=== PATIENT | female | born 1970 | race Caucasian/White ===

== ENCOUNTER → 2017-07-27 | Outpatient (CLI) | payer MEDICARE ==
--- NOTE | 2017-07-27 10:00 | US ---
EXAMINATION TYPE: US abdomen complete DATE OF EXAM: 07/27/2017 COMPARISON: NONE CLINICAL HISTORY: R10.11 Rt Upper quadrant pain. Pt states RUQ pain x 29 years EXAM MEASUREMENTS: Liver Length: 14.9 cm Gallbladder Wall: 0.2 cm CBD: 0.4 cm Spleen: 9.7 cm Right Kidney: 11.0 x 4.6 x 4.8 cm Left Kidney: 11.3 x 5.7 x 4.4 cm Pancreas: Body wnl, head and tail obscured by overlying bowel gas Liver: Small calcifications especially within left lobe Gallbladder: Mobile debris within with possible shadowing from calculi Evidence for sonographic Ponce's sign: No CBD: wnl Spleen: wnl Right Kidney: wnl, lower pole gassed out Left Kidney: wnl Upper IVC: wnl Abd Aorta: wnl The intrahepatic portion of the IVC and proximal abdominal aorta are within normal limits. Common bile duct is unremarkable. The visualized portions of the pancreas are homogenous. The spleen is un remarkable. Kidneys are symmetric and free of hydronephrosis. No renal lesions are seen. IMPRESSION: 1. Multilevel lumbar gallbladder debris with possible small calculi. 2. Hepatic calcifications.
== END | disposition home or self-care (01) ==
LOC: RADUSWWP 09:29
PROVIDERS: ATTEND Internal Medicine
DX: K82.8 Other specified diseases of gallbladder (principal); K76.89 Other specified diseases of liver
CPT/HCPCS: 76700

== ENCOUNTER → 2017-08-29 | Outpatient (CLI) | payer MEDICARE ==
--- NOTE | 2017-08-29 15:41 | CT ---
EXAMINATION TYPE: CT sinus wo con DATE OF EXAM: 08/29/2017 COMPARISON: NONE HISTORY: Chronic sinusitis per order. Facial pain and sinus congestion per patient. CT DLP: 603 mGycm. Automated Exposure Control for Dose Reduction was Utilized. TECHNIQUE: CT scan of the sinuses is performed without contrast, axial images are obtained, coronal r eformatted images are also reviewed. FINDINGS: The paranasal sinuses including the frontal, ethmoid, sphenoid, and maxillary sinuses bila terally are well-aerated without abnormal opacification. The ostiomeatal complex is patent bilateral ly on the coronal images. Visualized portion of mastoid air cells show no abnormal opacification. The globes are intact bilate rally. IMPRESSION: The sinuses are clear and the ostiomeatal complex is patent bilaterally.
== END | disposition home or self-care (01) ==
LOC: RADCTMAIN 15:18
PROVIDERS: ATTEND Otolaryngology
DX: J32.9 Chronic sinusitis, unspecified (principal)
CPT/HCPCS: 70486

== ENCOUNTER 2017-10-30 12:29 | Day surgery (SDC) | payer MEDICARE ==
[2017-10-25 11:13] VITALS: BMI 29.0
[~2017-10-30 12:29] MED LIST: LACTATED RINGERS 1,000 ML IV SCH; LIDOCAINE 1% 20 ML VIAL (10MG/ML) FOR IV START INTRADERMA PRN
[2017-10-30 12:55] VITALS: TEMP 97.4
[2017-10-30] MEDS ORDERED: PROPOFOL 10 MG/ML 20 ML VIAL IV ONE (14:40)
[2017-10-30 15:09] VITALS: RESP 16
--- NOTE | 2017-10-30 15:12 | P.PCN ---
Date of Procedure: 10/30/17 Procedure(s) Performed: Procedure: Esophagogastroduodenoscopy and biopsy. Preoperative diagnosis: History of dyspepsia of 6 months duration. Postoperative diagnosis: 1. Small sliding hiatal hernia with no obvious esophagitis or complicated reflux disease. 2. Mild antral gastritis and duodenitis. 3. Multiple biopsies obtained from the duodenum, antrum and esophagus. Preparation and sedation; Were provided by anesthesia. Brief clinical history: The patient is a 47-year-old female who is scheduled for this evaluation because of history of nausea and vomiting of around 6 months duration. This has not responded to empirical therapy and she has not felt any better after cholecystectomy which was performed around 1 month ago. This evaluation is to assess for esophagitis, PUD, complicated reflux disease or other pathology. Procedure: With the patient on her left lateral decubitus position and after informed consent and adequate sedation, I passed the Olympus-GIF 160 video upper endoscope through the cricopharyngeus down the esophagus. GE junction was around 38 cm from the incisors and there was a small sliding hiatal hernia. The esophagus did not show any obvious erosions, ulcers, strictures or Hoang 's esophagus. The endoscope was then passed into the stomach which was insufflated with air and inspected in detail including the retroflex view in the cardia. There was mottling and erythema in the antrum and a few erosions but no ulcers or bleeding. Pyloric channel did not show any ulcers. Duodenal bulb, post bulbar area and descending duodenum showed some mottling and erythema. Because of her symptoms, I obtained biopsies from the duodenum, antrum and esophagus then the endoscope was withdrawn. The patient tolerated the procedure well. Plan: The patient was reassured. Will await biopsy results. Further plans can be made based on his course and biopsy results. She will follow-up with you as planned and I will be happy to see in the office if her symptoms persist or recur.
[2017-10-30 15:32] VITALS: BP 112/79; PULSE 61
== END 2017-10-30 16:28 | disposition home or self-care (01) ==
LOC: ORWHC2ENDO 12:29
DX: K29.80 Duodenitis without bleeding (principal); K44.9 Diaphragmatic hernia without obstruction or gangrene; K29.70 Gastritis, unspecified, without bleeding; K21.0 Gastro-esophageal reflux disease with esophagitis; M19.90 Unspecified osteoarthritis, unspecified site; Z85.41 Personal history of malignant neoplasm of cervix uteri; F41.9 Anxiety disorder, unspecified; F32.9 Major depressive disorder, single episode, unspecified; Z79.899 Other long term (current) drug therapy; E07.9 Disorder of thyroid, unspecified
CPT/HCPCS: 43239; J2704; 88305

== ENCOUNTER → 2018-02-06 | Outpatient (CLI) | payer MEDICARE ==
--- NOTE | 2018-02-07 | MR ---
EXAMINATION TYPE: MR angio head wo con DATE OF EXAM: 02/06/2018 COMPARISON: None HISTORY: Headaches, Migraine, Dizziness TECHNIQUE: Time of flight images focusing on the [place] of [place] were performed without contrast. FINDINGS: There is arterial flow in the anterior middle and posterior cerebral arteries. There is art erial flow in the vertebrobasilar artery system. There is no evidence of aneurysm or neovascularity. There is no mass effect. There is no spasm. There is no evidence of stenosis. IMPRESSION: Negative CT angiogram of the brain.
--- NOTE | 2018-02-07 00:08 | MR ---
EXAMINATION TYPE: MR brain wo con DATE OF EXAM: 02/06/2018 COMPARISON: 04/11/2016 HISTORY: Headaches, Migraine, Dizziness Standard multiplanar, multisequence MRI departmental protocol Multiplanar, multisequence images of the brain were acquired. Diffusion weighted imaging was performe d. FINDINGS: Ventricles of normal size. There is no mass effect nor midline shift. There is no sign of i ntracranial hemorrhage. Corpus callosum appears normal. Brainstem appears normal. Sella turcica is no rmal. On the T2 images there are 2 5 mm foci there is irregularly shaped in the anterior right production intern al capsule. This area shows normal signal pattern on FLAIR images. This probably relates to perivascu lar spaces unchanged compared to old exam. There is mild mucosal thickening in the ethmoid sinuses. T here is minimal mucosal thickening floor of the maxillary sinuses. There is 2.6 x 1.4 cm area of flui d density in the left side cisterna magna that could be an arachnoid cyst. IMPRESSION: Negative MR scan of the brain. Mild sinusitis is improved compared to old exam. Possible arachnoid cy st unchanged compared to old exam.
== END ==
LOC: RADMRIMAIN 18:30
PROVIDERS: ATTEND Psychiatry & Neurology Neurology
DX: G43.009 Migraine without aura, not intractable, without status migrainosus (principal); H81.11 Benign paroxysmal vertigo, right ear; R41.3 Other amnesia
CPT/HCPCS: 70544; 70551

== ENCOUNTER 2018-06-28 08:55 | Day surgery (SDC) | payer MEDICARE ==
[2018-06-26 10:54] VITALS: BMI 28.0
[~2018-06-28 08:55] MED LIST changes: -LIDOCAINE 1% 20 ML VIAL (10MG/ML) FOR IV START INTRADERMA PRN
[2018-06-28 09:33] VITALS: RESP 16; TEMP 97.7
[2018-06-28] MEDS ORDERED: LIDOCAINE 1% INJ 10MG/ML (20 ML MDV) ONE (10:49)
[2018-06-28] MEDS ORDERED: PROPOFOL 10 MG/ML 20 ML VIAL IV ONE (10:49)
--- NOTE | 2018-06-28 11:25 | P.PCN ---
Date of Procedure: 06/28/18 Procedure(s) Performed: Procedure: Colonoscopy and biopsy. Preoperative diagnosis: Change in bowel habits. Postoperative diagnosis: 1. Exam of the colon within normal limits. 2. Biopsies obtained from the right colon to rule out microscopic colitis. Preparation: HalfLytely prep. Sedation: Was provided by anesthesia. Brief clinical history: The patient is a 47-year-old female who I have evaluated in the office earlier this month in follow-up regarding diarrhea which has been going on since her gallbladder surgery in August of last year. The patient had a prior colonoscopy around 15 years ago. This evaluation is to assess for neoplasia or other pathology. Procedure: With the patient on her left lateral decubitus position and after informed consent and adequate sedation, the perianal area was inspected and it did not show any fissures or fistulas. There were no masses felt on digital rectal examination. The Olympus CFH 190L video colonoscope was then inserted in the rectum in the usual fashion and advanced to the cecum. The mucosa appeared healthy. No polyps or tumors were seen or any obvious diverticular disease or other pathology. I retroflexed the endoscope in the rectum before the endoscope was withdrawn. I also obtained biopsies from the right colon to rule out microscopic colitis. The patient tolerated the procedure well. Plan: The patient was reassured. Discussed dietary measures. Will await biopsy results and make further plans based on her course and biopsy results. She will follow-up with you as planned and I will keep you updated on her progress.
[2018-06-28 11:50] VITALS: BP 99/66; PULSE 58
== END 2018-06-28 12:06 | disposition home or self-care (01) ==
LOC: ORWHC2ENDO 08:55
DX: R19.7 Diarrhea, unspecified (principal); K21.9 Gastro-esophageal reflux disease without esophagitis; M19.90 Unspecified osteoarthritis, unspecified site; E07.9 Disorder of thyroid, unspecified; F32.9 Major depressive disorder, single episode, unspecified; F41.9 Anxiety disorder, unspecified; Z79.890 Hormone replacement therapy; Z79.899 Other long term (current) drug therapy
CPT/HCPCS: 88305; 45380; J2001; J2704

== ENCOUNTER → 2018-08-16 | Outpatient (CLI) | payer MEDICARE ==
--- NOTE | 2018-08-16 15:17 | CT ---
EXAMINATION TYPE: CT abdomen wo con DATE OF EXAM: 08/16/2018 COMPARISON: None INDICATION: Pain under rib cage DLP: 511 mGycm, Automated exposure control for dose reduction was used. CONTRAST: 0 mL of Isovue 300. Study performed without Oral Contrast TECHNIQUE: Axial images were obtained from above the diaphragm to the pubic rami in the axial plane a t 5 mm thick sections. Reconstructed images are reviewed on the computer in the coronal plane. FINDINGS: Limited CT sections are obtained the lung bases. The lung bases are clear. CT ABDOMEN: Liver: Normal Spleen: Normal. Splenule is at the anterior spleen Pancreas: Normal Adrenal glands: The adrenal glands are normal. Gallbladder: Surgically absent Kidneys: No masses are evident. No hydronephrosis is present. No cysts are present. No renal stone s are evident. Aorta: Vascular calcification is within the aorta. Inferior vena cava: Normal. Loops of bowel within the abdomen and pelvis are normal. There are loops of bowel which are incom pletely distended or lack oral contrast limiting their evaluation. Bones: Osseous structures appear unremarkable. IMPRESSIONS: 1. Unremarkable CT abdomen
== END | disposition home or self-care (01) ==
LOC: RADCTMAIN 12:31
PROVIDERS: ATTEND Internal Medicine
DX: R10.11 Right upper quadrant pain (principal)
CPT/HCPCS: 74150

== ENCOUNTER 2022-12-02 23:06 | Emergency (ER) | payer MEDICARE ==
[2022-12-02 23:12] VITALS: RESP 20; TEMP 99.1
[2022-12-02] MEDS ORDERED: AMOXIC-POT CLAV 875-125MG 1 EACH TAB PO STA (23:36)
[2022-12-02] MEDS ORDERED: HYDROcodone/APAP 5-325MG 1 EACH TAB PO STA (23:36)
[2022-12-02] MEDS ORDERED: KETOROLAC 15 MG/ML 1 ML VIAL IM STA (23:36)
[2022-12-02] MEDS ORDERED: DIPH,PERTUS(ACELL)TETVAC-LF 0.5 ML VIAL IM ONE (23:36)
[2022-12-03] MEDS ORDERED: LIDOCAINE 1% INJ 10MG/ML (20 ML MDV) SQ ONE (00:45)
[2022-12-03] MEDS ORDERED: IBUPROFEN 600 MG STARTER PACK 4 TAB BTL PO STA (01:34)
[2022-12-03] MEDS ORDERED: ACET/COD 300 MG/30 MG STARTER PACK 6 TAB BTL PO STA (01:34)
--- NOTE | 2022-12-03 01:35 | ED ---
Animal Bite HPI - General Chief Complaint: Animal Bite Stated Complaint: Dog Bites Time Seen by Provider: 12/02/22 23:19 Source: patient, RN notes reviewed Mode of arrival: ambulatory Limitations: no limitations - History of Present Illness Initial Comments: This is a 52-year-old female who presents to the emergency department for a dog bite to the left hand. Patient's dogs were fighting and she tried to break them apart, when one of them bit her left hand. Unsure when her last tetanus vaccine was. States that this is very painful. Her dogs are up-to-date on their immunizations. Denies any fevers, chills, sore throat, cough, dyspnea, chest pain, palpitations, abdominal pain, nausea, vomiting, diarrhea, back pain, or headaches. MD Complaint: animal bite - Related Data Home Medications Medication Instructions Recorded Confirmed Aspirin 325 mg PO DAILY 10/25/17 06/28/18 Diclofenac Sodium [Voltaren] 75 mg PO BID PRN 10/25/17 06/28/18 Folic Acid (Dose Unknown) 1 tab PO BID 10/25/17 06/28/18 Gabapentin [Neurontin] 600 mg PO TID 10/25/17 06/28/18 Levothyroxine Sodium [Synthroid] 100 mcg PO DAILY 10/25/17 06/28/18 SUMAtriptan succinate [Imitrex] 50 mg PO DIRECTED PRN 10/25/17 06/28/18 Topiramate [Topamax] 25 mg PO 5XD 10/25/17 06/28/18 Vortioxetine Hydrobromide 20 mg PO QAM 10/25/17 06/28/18 [Trintellix] Cariprazine HCl [Vraylar] 1.5 mg PO QAM 06/26/18 06/28/18 Venlafaxine HCl [Effexor] 75 mg PO QAM 06/26/18 06/28/18 Previous Rx's Medication Instructions Recorded ALPRAZolam [Xanax] 1 mg PO TID PRN #10 tab 01/19/15 Amoxic-Pot Clav 875-125Mg 1 tab PO Q12HR 10 Days #20 tab 12/03/22 [Augmentin 875-125] Allergies Allergy/AdvReac Type Severity Reaction Status Date / Time No Known Allergies Allergy Verified 02/21/19 09:43 Review of Systems ROS Statement: Those systems with pertinent positive or pertinent negative responses have been documented in the HPI. ROS Other: All systems not noted in ROS Statement are negative. Past Medical History Past Medical History: Cancer, GERD/Reflux, Osteoarthritis (OA), Thyroid Disorder Additional Past Medical History / Comment(s): Neuropathy lobo legs and feet, "Arachnoid" 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, hx "medically induced seizures", migraines, gout, cervical cancer, hypotension, hiatal hernia, IBS, History of Any Multi-Drug Resistant Organisms: None Reported Past Surgical History: Cholecystectomy, Hysterectomy Past Anesthesia/Blood Transfusion Reactions: No Reported Reaction Past Psychological History: Anxiety, Bipolar, Depression Past Alcohol Use History: None Reported Past Drug Use History: Marijuana - Past Family History Mother Family Medical History: Cancer General Exam Limitations: no limitations General appearance: alert, in no apparent distress Head exam: Present: atraumatic, normocephalic, normal inspection Respiratory exam: Present: normal lung sounds bilaterally. Absent: respiratory distress, wheezes, rales, rhonchi, stridor Cardiovascular Exam: Present: regular rate, normal rhythm, normal heart sounds. Absent: systolic murmur, diastolic murmur, rubs, gallop, clicks Neurological exam: Present: alert, oriented X3, CN II-XII intact Psychiatric exam: Present: normal affect, normal mood Skin exam: Present: other (1 cm puncture wound to the palm of the left hand and dorsal aspect of the left wrist with visible subcutaneous tissue.) Course Vital Signs 12/02/22 12/03/22 23:08 02:04 Temperature 99.1 F Pulse Rate 103 H 69 Respiratory 20 20 Rate Blood Pressure 118/79 101/50 O2 Sat by Pulse 98 96 Oximetry Procedures - Laceration Laceration #1 Consent Obtained: verbal consent Indication: laceration Site: other (Left hand) Size (cm): 1 Description: linear Depth: simple, single layer Anesthetic Used: lidocaine 1% Anesthesia Technique: local infiltration Amount (mls): 1 Pre-repair: irrigated extensively Type of Sutures: nylon Size of Sutures: 5-0 Number of Sutures: 1 Technique: other (figure of 8) Laceration #2 Consent Obtained: verbal consent Indication: laceration Site: other (left hand) Size (cm): 1 Description: linear Depth: simple, single layer Anesthetic Used: lidocaine 1% Anesthesia Technique: local infiltration Amount (mls): 1 Pre-repair: irrigated extensively Type of Sutures: nylon Size of Sutures: 5-0 Number of Sutures: 1 Technique: other (figure of 8) Medical Decision Making - Medical Decision Making This is a 52-year-old female who presents to the emergency department for a dog bite. Was pt. sent in by a medical professional or institution? @ -No Did you speak to anyone other than the patient for history? @ -No Did you review nursing and triage notes? @ -Yes, and I agree, it is accurate with regards to the patient's symptoms. Were old charts reviewed? @ -No Differential Diagnosis? @ -Not applicable EKG interpreted by me (3pts min.)? @ -Not obtained X-rays interpreted by me (1pt min.)? @ -Not obtained CT interpreted by me (1pt min.)? @ -Not obtained U/S interpreted by me (1pt. min.)? @ -Not obtained What testing was considered but not performed? (CT, X-rays, U/S, labs)? Why? @ -None What meds were considered but not given? Why? @ -None Did you discuss the management of the patient with other professionals? @ -No Did you reconcile home meds? @ -No Was smoking cessation discussed for >3mins.? @ -No Was critical care preformed (if so, how long)? @ -No Were there social determinants of health that impacted care today? How? (Homelessness, low income, unemployed, alcoholism, drug addiction, transportation, low edu. Level, literacy, decrease access to med. care, retirement, rehab)? @ -No Was there de-escalation of care discussed even if they declined? (Discuss DNR or withdrawal of care, Hospice)? @ -No What co-morbidities impacted this encounter? (DM, HTN, Smoking, COPD, CAD, Cancer, CVA, Hep., AIDS, mental health diagnosis, sleep apnea, morbid obesity)? @ -None Was patient admitted / discharged? @ -Discharged. Her hand was soaked in sterile water mixed with Betadine. She was given a dose of Augmentin in the emergency department and her pain was controlled. The puncture wounds were very deep and required repair with sutures. 2 [id number] sutures were used to loosely approximate the edges. Tetanus vaccine was updated. Rx for Augmentin provided with dosing instructions servando ruiz. Advised she alternate with ibuprofen and Tylenol as needed for pain relief. Discussed that there is still a possibility of infection, and if she develops fevers, increasing redness, or pain, she should return to the emergency department for further evaluation. Undiagnosed new problem with uncertain prognosis? @ -None Drug Therapy requiring intensive monitoring for toxicity (Heparin, Nitro, Insulin, Cardizem)? @ -None Were any procedures done? @ -Sutures Diagnosis/symptom? @ -Dog bite Acute, or Chronic, or Acute on Chronic? @ -Acute Uncomplicated (without systemic symptoms) or Complicated (systemic symptoms)? @ -Uncomplicated Side effects of treatment? @ -None Exacerbation, Progression, or Severe Exacerbation] @ -Not applicable Poses a threat to life or bodily function? @ -No Return precautions reviewed in depth, the patient is instructed to return to the emergency department with any new, worsening, or concerning symptoms. Patient verbalized understanding. This case was discussed in detail with the attending ED physician, Dr. Caicedo. Presentation, findings, and treatment plan discussed in detail as well. Disposition Clinical Impression: Dog bite Disposition: HOME SELF-CARE Instructions (If sedation given, give patient instructions): Animal Bite (ED) Additional Instructions: Return to the emergency department with any new, worsening, or concerning symptoms, and in 7-10 days for removal of the stitches. Take the antibiotic as prescribed for 10 days. Alternate with ibuprofen and Tylenol as needed for pain relief. Follow up with your primary care provider in 1-2 days. Prescriptions: Amoxic-Pot Clav 875-125Mg [Augmentin 875-125] 1 tab PO Q12HR 10 Days #20 tab Is patient prescribed a controlled substance at d/c from ED?: No Referrals: Navin Miller MD [Primary Care Provider] - 1-2 days
[2022-12-03 02:06] VITALS: BP 101/50; PULSE 69
== END 2022-12-03 02:05 | disposition home or self-care (01) ==
LOC: EC 23:06
DX: S61.432A Puncture wound without foreign body of left hand, initial encounter (principal); S61.532A Puncture wound without foreign body of left wrist, initial encounter; K21.9 Gastro-esophageal reflux disease without esophagitis; E07.9 Disorder of thyroid, unspecified; F41.9 Anxiety disorder, unspecified; F31.9 Bipolar disorder, unspecified; M19.90 Unspecified osteoarthritis, unspecified site; F12.90 Cannabis use, unspecified, uncomplicated; Z79.82 Long term (current) use of aspirin; Z79.890 Hormone replacement therapy; Z79.899 Other long term (current) drug therapy; Z90.49 Acquired absence of other specified parts of digestive tract; Z23 Encounter for immunization; W54.0XXA Bitten by dog, initial encounter
CPT/HCPCS: 90715; 12001; 99283; 90471; 96372; J2001; J1885

== ENCOUNTER 2024-02-22 16:24 | Inpatient (IN) | payer MEDICARE ==
--- NOTE | 2024-02-22 17:22 | ED ---
Psych HPI - History of Present Illness MD Complaint: suicidal ideation Onset/Timin -: days(s) Associated Psychiatric Symptoms: depression, suicidal ideation History of same: Yes Quality: constant Improves With: medication Context: not taking psychiatric medications <Dante Everett - Last Filed: 02/22/24 17:17> - General Source: RN notes reviewed <Mavis Coronado - Last Filed: 02/22/24 20:29> - General Stated Complaint: psychiatric symptoms Time Seen by Provider: 02/22/24 19:00 - History of Present Illness Initial Comments: This is a 53-year-old female with history of depression presenting for suicidal ideation x 1 week. Patient states she is unable to feel her psychiatric medications for the past 10 days. Endorses daily use of Effexor, Abilify and Topamax for headaches, stating she is out of all 3. Patient endorses current headache (4 out of 10). (Dante Everett) 53-year-old female with history of major depressive disorder presenting for suicidal ideation x 1 week. States she has been unable to fill her Abilify, Topamax, and Effexor for the past 10 days. She denies suicide plan. States she was recently hospitalized for suicide attempt several months ago in [place]. (Mavis Coronado) - Related Data Home Medications Medication Instructions Recorded Confirmed Aspirin 325 mg PO DAILY 10/25/17 06/28/18 Diclofenac Sodium [Voltaren] 75 mg PO BID PRN 10/25/17 06/28/18 Folic Acid (Dose Unknown) 1 tab PO BID 10/25/17 06/28/18 Gabapentin [Neurontin] 600 mg PO TID 10/25/17 06/28/18 Levothyroxine Sodium [Synthroid] 100 mcg PO DAILY 10/25/17 06/28/18 SUMAtriptan succinate [Imitrex] 50 mg PO DIRECTED PRN 10/25/17 06/28/18 Topiramate [Topamax] 25 mg PO 5XD 10/25/17 06/28/18 Vortioxetine Hydrobromide 20 mg PO QAM 10/25/17 06/28/18 [Trintellix] Cariprazine HCl [Vraylar] 1.5 mg PO QAM 06/26/18 06/28/18 Venlafaxine HCl [Effexor] 75 mg PO QAM 06/26/18 06/28/18 Previous Rx's Medication Instructions Recorded ALPRAZolam [Xanax] 1 mg PO TID PRN #10 tab 01/19/15 Amoxic-Pot Clav 875-125Mg 1 tab PO Q12HR 10 Days #20 tab 12/03/22 [Augmentin 875-125] Allergies Allergy/AdvReac Type Severity Reaction Status Date / Time No Known Allergies Allergy Verified 06/28/18 09:43 Review of Systems ROS Other: All systems not noted in ROS Statement are negative. <KarlosDante - Last Filed: 02/22/24 17:17> ROS Other: All systems not noted in ROS Statement are negative. <Mavis Coronado - Last Filed: 02/22/24 20:29> ROS Statement: Those systems with pertinent positive or pertinent negative responses have been documented in the HPI. Past Medical History Past Medical History: Cancer, GERD/Reflux, Osteoarthritis (OA), Thyroid Disorder Additional Past Medical History / Comment(s): Neuropathy lobo legs and feet, "Arachnoid" 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, hx "medically induced seizures", migraines, gout, cervical cancer, hypotension, hiatal hernia, IBS, History of Any Multi-Drug Resistant Organisms: None Reported Past Surgical History: Cholecystectomy, Hysterectomy Past Anesthesia/Blood Transfusion Reactions: No Reported Reaction Past Psychological History: Anxiety, Bipolar, Depression Past Alcohol Use History: None Reported Past Drug Use History: Marijuana - Past Family History Mother Family Medical History: Cancer <KarlosDante - Last Filed: 02/22/24 17:17> General Exam <KarlosDante - Last Filed: 02/22/24 17:17> General appearance: alert, in no apparent distress Head exam: Present: atraumatic, normocephalic, normal inspection Eye exam: Present: normal appearance, PERRL, EOMI. Absent: scleral icterus, conjunctival injection, periorbital swelling Respiratory exam: Present: normal lung sounds bilaterally. Absent: respiratory distress, wheezes, rales, rhonchi, stridor Cardiovascular Exam: Present: regular rate, normal rhythm, normal heart sounds. Absent: systolic murmur, diastolic murmur, rubs, gallop, clicks Neurological exam: Present: alert, oriented X3 Psychiatric exam: Present: normal affect, depressed Skin exam: Present: warm, dry, intact, normal color. Absent: rash <Mavis Coronado - Last Filed: 02/22/24 20:29> - General Exam Comments Initial Comments: Visual Physical Exam Vital signs reviewed General: Well-appearing, nontoxic, no acute distress. Head: Normocephalic, atraumatic Eyes: PERRLA, EOMI ENT: Airway patent Chest: Nonlabored breathing Skin: No visual rash, normal skin tone Neuro: Alert and oriented 3 Musculoskeletal: No gross abnormalities (Dante Everett) Course Vital Signs 02/22/24 02/22/24 18:28 18:39 Temperature 99.2 F 98.7 F Pulse Rate 83 84 Respiratory 18 18 Rate Blood Pressure 126/81 122/77 O2 Sat by Pulse 100 100 Oximetry Medical Decision Making <Dante Everett - Last Filed: 02/22/24 17:17> <Mavis Coronado - Last Filed: 02/22/24 20:29> - Medical Decision Making I completed the quick note portion of this chart signed SHANON Etienne (Dante Everett) Was pt. sent in by a medical professional or institution (SHERI Erickson, OPERATOR ASSISTANT I CEMENTING, urgent care, hospital, or fci...) When possible be specific @ -No Did you speak to anyone other than the patient for history (EMS, parent, family, police, friend...)? What history was obtained from this source @ -No Did you review nursing and triage notes (agree or disagree)? Why? @ -I reviewed and agree with nursing and triage notes Were old charts reviewed (outside hosp., previous admission, EMS record, old EKG, old radiological studies, urgent care reports/EKG's, fci records)? Report findings @ -No old charts were reviewed Differential Diagnosis (chest pain, altered mental status, abdominal pain women, abdominal pain men, vaginal bleeding, weakness, fever, dyspnea, syncope, headache, dizziness, GI bleed, back pain, seizure, CVA, palpatations, mental health, musculoskeletal)? @ -Differential Mental Health Depression, anxiety, bipolar, psychosis, schizophrenia, borderline personality, situational depression, adjustment disorder, behavioral disorder, brain tumor, malingering, substance abuse, encephalopathy, medication reaction, dementia, hypothyroidism, degenerative neurologic disorder, lupus.... This is not meant to be all-inclusive list EKG interpreted by me (3pts min.). @ -None X-rays interpreted by me (1pt min.). @ -None done CT interpreted by me (1pt min.). @ -None done U/S interpreted by me (1pt. min.). @ -None done What testing was considered but not performed or refused? (CT, X-rays, U/S, labs)? Why? @ -None What meds were considered but not given or refused? Why? @ -None Did you discuss the management of the patient with other professionals (professionals i.e. DrJoana, PA, OPERATOR ASSISTANT I CEMENTING, lab, RT, psych nurse, social media editor, income tax auditor, teacher, unclaimed property officer, pillowcase cleaner)? Give summary @ -Discussed case with EPS who recommends inpatient psych admission, patient is agreeable and signs herself in Was smoking cessation discussed for >3mins.? @ -No Was critical care preformed (if so, how long)? @ -No Were there social determinants of health that impacted care today? How? (Homelessness, low income, unemployed, alcoholism, drug addiction, transportation, low edu. Level, literacy, decrease access to med. care, assisted, rehab)? @ -No Was there de-escalation of care discussed even if they declined (Discuss DNR or withdrawal of care, Hospice)? DNR status @ -No What co-morbidities impacted this encounter? (DM, HTN, Smoking, COPD, CAD, Cancer, CVA, ARF, Chemo, Hep., AIDS, mental health diagnosis, sleep apnea, morbid obesity)? @ -Major depressive disorder Was patient admitted / discharged? Hospital course, mention meds given and route, prescriptions, significant lab abnormalities, going to OR and other pertinent info. @ -Admitted. This is a 53-year-old female with history of major depressive disorder presenting for suicidal ideation x 1 week. Has been out of her meds including Effexor, Abilify, and Topamax for 10 days. No medical complaints. Patient is medically cleared to be seen by EPS at this time. EPS recommends inpatient psych admission, I agree with this plan. Patient is agreeable. Case was discussed with my ED attending Dr. Caicedo. Undiagnosed new problem with uncertain prognosis? @ -No Drug Therapy requiring intensive monitoring for toxicity (Heparin, Nitro, Insulin, Cardizem)? @ -No Were any procedures done? @ -No Diagnosis/symptom? @ -Suicidal ideation Acute, or Chronic, or Acute on Chronic? @ -Acute Uncomplicated (without systemic symptoms) or Complicated (systemic symptoms)? @ -Uncomplicated Side effects of treatment? @ -No Exacerbation, Progression, or Severe Exacerbation? @ -No Poses a threat to life or bodily function? How? (Chest pain, USA, CA, pneumonia, PE, COPD, DKA, ARF, appy, cholecystitis, CVA, Diverticulitis, Homicidal, Suicidal, threat to staff... and all critical care pts) @ -Yes, suicidal (Mavis Coronado) - Lab Data Lab Results 02/22/24 Range/Units 19:08 Urine Opiates Screen Not Detected (NotDetected) Ur Oxycodone Screen Not Detected (NotDetected) Urine Methadone Screen Not Detected (NotDetected) Ur Barbiturates Screen Not Detected (NotDetected) U Tricyclic Antidepress Not Detected (NotDetected) Ur Phencyclidine Scrn Not Detected (NotDetected) Ur Amphetamines Screen Not Detected (NotDetected) U Methamphetamines Scrn Not Detected (NotDetected) U Benzodiazepines Scrn Not Detected (NotDetected) Urine Cocaine Screen Not Detected (NotDetected) U Marijuana (THC) Screen Detected H (NotDetected) Disposition <Dante Everett - Last Filed: 02/22/24 17:17> Time of Disposition: 20:29 <Mavis Coronado - Last Filed: 02/22/24 20:29> Clinical Impression: Suicidal ideation Disposition: ADMITTED IP TO THIS HOSP Referrals: None,Stated [Primary Care Provider] - 1-2 days
[2024-02-22 19:45] LABS: Amphetamine Screen,Urine Not Detected (NotDetected); Barbiturate Screen,Urine Not Detected (NotDetected); Benzodiazepines Screen,Urine Not Detected (NotDetected); Cocaine Screen,Urine Not Detected (NotDetected); Methadone Screen, Urine Not Detected (NotDetected); Opiate Screen,Urine Not Detected (NotDetected); Oxycodone Screen, Urine Not Detected (NotDetected); Phencyclidine Screen,Urine Not Detected (NotDetected); Tricyclic Antidepressant,Urine Not Detected (NotDetected); Urn Cannabinoid Scrn Detected (NotDetected)
[2024-02-22] MEDS ORDERED: IBUPROFEN 600 MG TAB PO PRN (21:11)
[2024-02-22] MEDS ORDERED: MAGNESIUM HYDROXIDE 2,400 MG/30 ML CUP PO PRN (21:11)
[2024-02-22] MEDS ORDERED: MAG HYDROX/AL HYDROX/SIMETH 30 ML CUP PO PRN (21:11)
[2024-02-22] MEDS ORDERED: LORazepam 2 MG/ML INJ IM PRN (21:14)
[2024-02-22] MEDS ORDERED: HALOPERIDOL LACTATE 5 MG/ML 1 ML VIAL IM PRN (21:14)
[2024-02-22 21:46] LABS: Appearance,Urine Clear (Clear); Bilirubin,Urine Negative (Negative); Blood,Urine Negative (Negative); Color,Urine Colorless; Glucose,Urine (UA) Negative (Negative); Ketones,Urine Negative (Negative); Leukocyte Esterase,Urine Trace (Negative); Nitrite,Urine Negative (Negative); Protein,Urine Negative (Negative); RBC,Urine <1 /hpf (0-5); Specific Gravity,Urine 1.009 (1.001-1.035); Squamous Epithelial Cell,Urine 1 /hpf (0-4); Urobilinogen,Urine <2.0 mg/dL (<2.0); WBC,Urine 3 /hpf (0-5)
[2024-02-22] MEDS: LORazepam 1 MG TAB PO PRN (21:52)
[2024-02-22] MEDS: ACETAMINOPHEN TAB 325 MG TAB PO PRN (21:53)
[2024-02-23 07:25] LABS: Basophils % (A) 1 %; Eosinophils # (A) 0.2 k/uL (0-0.7); Eosinophils % (A) 4 %; HCT 34.2 % (34.0-46.0); HGB 11.6 gm/dL (11.4-16.0); Lymphocytes # (A) 1.7 k/uL (1.0-4.8); Lymphocytes % (A) 42 %; MCH 29.6 pg (25.0-35.0); MCHC 33.9 g/dL (31.0-37.0); MCV 87.3 fL (80.0-100.0); Mean Platelet Volume 8.5; Monocytes # (A) 0.2 k/uL (0-1.0); Monocytes % (A) 5 %; Neutrophils # (A) 1.9 k/uL (1.3-7.7); Neutrophils % (A) 47 %; Platelet Count 182 k/uL (150-450); RBC 3.92 m/uL (3.80-5.40); RDW 12.9 % (11.5-15.5); WBC 4.1 k/uL (3.8-10.6)
[2024-02-23 07:37] LABS: ALT 38 U/L (4-34); AST 46 U/L (14-36); African American GFR (CKD) 79 (>60 ml/min/1.73 sqM); Albumin 3.3 g/dL (3.5-5.0); Alkaline Phosphatase 63 U/L (38-126); Anion Gap 5 mmol/L; Blood Urea Nitrogen 6 mg/dL (7-17); Carbon Dioxide 29 mmol/L (22-30); Chloride 106 mmol/L (98-107); Glucose 105 mg/dL (74-99); Non-African American GFR(CKD) 69 (>60 ml/min/1.73 sqM); Potassium 3.4 mmol/L (3.5-5.1); Sodium 140 mmol/L (137-145); Total Bilirubin 0.4 mg/dL (0.2-1.3); Total Protein 5.7 g/dL (6.3-8.2)
[2024-02-23] MEDS ORDERED: SUMAtriptan succinate 50 MG TAB PO PRN (11:49)
[2024-02-23] MEDS ORDERED: DICLOFENAC SODIUM 75 MG PO PRN (11:49)
--- NOTE | 2024-02-23 12:01 | P.HP ---
Psychiatric H&P - . H&P Date: 02/23/24 History & Physical: Allergies Allergy/AdvReac Type Severity Reaction Status Date / Time naproxen AdvReac Abdominal Verified 02/22/24 22:26 Pain Vital Signs Temp 97.4 F L 02/23/24 06:50 Pulse 85 02/23/24 06:50 Resp 16 02/23/24 06:50 BP 91/57 02/23/24 06:50 Pulse Ox 97 02/23/24 06:50 FiO2 Intake & Output 02/22/24 02/23/24 02/23/24 18:59 06:59 18:59 Weight 72.575 kg 72.9 kg Laboratory Last Values WBC 4.1 k/uL (3.8-10.6) 02/23/24 07:01 RBC 3.92 m/uL (3.80-5.40) 02/23/24 07:01 Hgb 11.6 gm/dL (11.4-16.0) 02/23/24 07:01 Hct 34.2 % (34.0-46.0) 02/23/24 07:01 MCV 87.3 fL (80.0-100.0) 02/23/24 07:01 MCH 29.6 pg (25.0-35.0) 02/23/24 07:01 MCHC 33.9 g/dL (31.0-37.0) 02/23/24 07:01 RDW 12.9 % (11.5-15.5) 02/23/24 07:01 Plt Count 182 k/uL (150-450) 02/23/24 07:01 MPV 8.5 02/23/24 07:01 Neutrophils % 47 % 02/23/24 07:01 Lymphocytes % 42 % 02/23/24 07:01 Monocytes % 5 % 02/23/24 07:01 Eosinophils % 4 % 02/23/24 07:01 Basophils % 1 % 02/23/24 07:01 Neutrophils # 1.9 k/uL (1.3-7.7) 02/23/24 07:01 Lymphocytes # 1.7 k/uL (1.0-4.8) 02/23/24 07:01 Monocytes # 0.2 k/uL (0-1.0) 02/23/24 07:01 Eosinophils # 0.2 k/uL (0-0.7) 02/23/24 07:01 Basophils # 0.0 k/uL (0-0.2) 02/23/24 07:01 Sodium 140 mmol/L (137-145) 02/23/24 07:01 Potassium 3.4 mmol/L (3.5-5.1) L 02/23/24 07:01 Chloride 106 mmol/L (98-107) 02/23/24 07:01 Carbon Dioxide 29 mmol/L (22-30) 02/23/24 07:01 Anion Gap 5 mmol/L 02/23/24 07:01 BUN 6 mg/dL (7-17) L 02/23/24 07:01 Creatinine 0.94 mg/dL (0.52-1.04) 02/23/24 07:01 Est GFR (CKD-EPI)AfAm 79 (>60 ml/min/1.73 sqM) 02/23/24 07:01 Est GFR (CKD-EPI)NonAf 69 (>60 ml/min/1.73 sqM) 02/23/24 07:01 Glucose 105 mg/dL (74-99) H 02/23/24 07:01 Calcium 9.0 mg/dL (8.4-10.2) 02/23/24 07:01 Total Bilirubin 0.4 mg/dL (0.2-1.3) 02/23/24 07:01 AST 46 U/L (14-36) H 02/23/24 07:01 ALT 38 U/L (4-34) H 02/23/24 07:01 Alkaline Phosphatase 63 U/L (38-126) 02/23/24 07:01 Total Protein 5.7 g/dL (6.3-8.2) L 02/23/24 07:01 Albumin 3.3 g/dL (3.5-5.0) L 02/23/24 07:01 TSH 2.410 mIU/L (0.465-4.680) 02/23/24 07:01 Urine Color Colorless 02/22/24 19:08 Urine Appearance Clear (Clear) 02/22/24 19:08 Urine pH 6.0 (5.0-8.0) 02/22/24 19:08 Ur Specific [place] 1.009 (1.001-1.035) 02/22/24 19:08 Urine Protein Negative (Negative) 02/22/24 19:08 Urine Glucose (UA) Negative (Negative) 02/22/24 19:08 Urine Ketones Negative (Negative) 02/22/24 19:08 Urine Blood Negative (Negative) 02/22/24 19:08 Urine Nitrite Negative (Negative) 02/22/24 19:08 Urine Bilirubin Negative (Negative) 02/22/24 19:08 Urine Urobilinogen <2.0 mg/dL (<2.0) 02/22/24 19:08 Ur Leukocyte Esterase Trace (Negative) H 02/22/24 19:08 Urine RBC <1 /hpf (0-5) 02/22/24 19:08 Urine WBC 3 /hpf (0-5) 02/22/24 19:08 Ur Squamous Epith Cells 1 /hpf (0-4) 02/22/24 19:08 Urine HCG, Qual Not Detected (Not Detectd) 02/22/24 19:08 Urine Opiates Screen Not Detected (NotDetected) 02/22/24 19:08 Ur Oxycodone Screen Not Detected (NotDetected) 02/22/24 19:08 Urine Methadone Screen Not Detected (NotDetected) 02/22/24 19:08 Ur Barbiturates Screen Not Detected (NotDetected) 02/22/24 19:08 U Tricyclic Antidepress Not Detected (NotDetected) 02/22/24 19:08 Ur Phencyclidine Scrn Not Detected (NotDetected) 02/22/24 19:08 Ur Amphetamines Screen Not Detected (NotDetected) 02/22/24 19:08 U Methamphetamines Scrn Not Detected (NotDetected) 02/22/24 19:08 U Benzodiazepines Scrn Not Detected (NotDetected) 02/22/24 19:08 Urine Cocaine Screen Not Detected (NotDetected) 02/22/24 19:08 U Marijuana (THC) Screen Detected (NotDetected) H 02/22/24 19:08 SARS-CoV-2 (PCR) Not Detected (Not Detectd) 02/22/24 20:21 02/23/24 08:52 IDENTIFYING DATA: Patient is a 53-year-old female. Currently homeless, sometimes stays with her brother or sister. . Has one adult child. Receives disability. HPI: Patient presented to the hospital on 02/21. As per EPS note, "Pt brought self to ER d/t worsening depression. During assessment pt is flat and tearful. Pt states that she is suicidal and does not feel like she can keep herself safe. She does have access to guns/weapons. Pt states that she attempted to kill herself in December of this year by overdose. She states that they way she is feeling now is how she was feeling prior to her overdose. While hospitalized for overdose she had a seizure. She has not had one since. She does not have a seizure diagnosis. She has been off her medication for a few weeks d/t being kicked out of her old boyfriends house. She is now homeless in [place]. She states that she could go to her sisters or sons house, if needed. She has struggled with the use of cocaine since 2019, she has been clean for about 2 weeks and uds was negative for cocaine. Pt states that her family does not believe her that she isn't using. She was going to go to rehab today but they would not take her because she didn't have any of her medications. She states that she felt she needed mental help and not rehab. She also admits to being a sex addict and she states she was using cocaine because it enhanced it for her. Pt denies the use of etoh and says just rare marijuana use. Pt denies having any supports."Upon today's interview, she states that she was feeling suicidal, so she came to the hospital. She has been depressed all her life, and states it gets worse at times. Her sister brought her into the hospital. She states she porter s been off her medications for a couple weeks, because she ran out. She is endorsing anxiety. She states her stressors are being homeless. Patient is tearful at times. She is still endorsing thoughts of suicide. She states her sleep has been terrible. Patient is very vague. She states her boyfriend may be out to get her. Patient denies homicidal ideations intent or plan. At this time patient denies any auditory or visual hallucinations. Patient denies any flight of ideas racing thoughts and increased in goal directed behavior. Patient UDS was positive for marijuana. PAST PSYCHIATRIC HISTORY: Patient states that she was last hospitalized in [place] in December. She has had multiple psychiatric admissions. Patient denies being on any psychiatric medications currently, because she ran out. Patient denies any psychiatric outpatient follow-up. Patient has a history of suicide attempts in the past, by means of overdose. PMH:As per ER note ALLERGIES: as per EMR CHEMICAL DEPENDENCY HISTORY: as per HPI FAMILY PSYCHIATRIC/SUBSTANCE USE HISTORY: son has bipolar SOCIAL HISTORY: Patient was born and raised in [place], [place], Claims to have 8 years of college. , homeless, has one son. Has been to [facility] once, over 10 years ago, for 24 hours. MENTAL STATUS EXAM: General Appearance: Patient appears to be older than stated age is alert, directable, and attempts to cooperate. Patient appears to have poor hygiene and grooming. disheveled, wearing a hospital gown Behavior: Patient is seated without any agitated behavior. Vague, dismissive. uninterested Speech: Patient's speech is fluent and nonpressured. Mood/Affect: Patient reports their mood is depressed, affect is congruent and constricted. Suicidality/Homicidality: Patient denies having any homicidal ideation intent or plan. Denies any suicidal ideations intent or plan Perceptions: Patient denies any visual hallucinations and denies any auditory hallucinations Though content/process: There is no evidence of any delusional thought content and thought process is linear and goal-directed. cocnrete. Memory and concentration: AOX3, grossly intact for the purposes of this session. Can spell "WORLD" backwards Judgment and insight: Poor STRENGTHS/WEAKNESSES: strength is that patient is resilient. Weakness is that patient has poor judgment and is impulsive INTELLECT: Average IMPRESSIONS: major depressive disorder, without psychotic features hypothyroidism cocaine abuse Cannabis use disorder PLAN: -Patient is admitted under voluntary status to MHU for stabilization of psychiatric symptoms and safety. Patient has signed adult voluntary form and medication consent and is placed in patient's chart. -Medications : Will start patient on Seroquel 50mg qhs for sleep/mood, effexor 75mg daily for depression/anxiety -Ativan and Haldol PRN for agitation/aggression -Patient was counselled on substance abuse and desired to cut back on use -Patient was informed of the risks, benefits and side effects of the medication and patient verbally consented to taking the medications. -Internal Medicine consult to perform medical evaluation and physical. -NRT -nicotine patch -SW on board for discharge planning. Encourage patient to participate in groups to work on coping skills.
[2024-02-23] MEDS: ASPIRIN 325 MG TAB PO SCH (13:22)
[2024-02-23] MEDS: VENLAFAXINE HCL ER 75 MG CAP PO SCH (13:22)
[2024-02-23] MEDS: FOLIC ACID 1 MG TAB PO SCH (13:23)
[2024-02-23] MEDS: TOPIRAMATE 25 MG TAB PO SCH (13:23)
[2024-02-23] MEDS: LEVOTHYROXINE 100 MCG TAB PO SCH (13:23)
[2024-02-23] MEDS ORDERED: GABAPENTIN 400 MG CAP PO SCH (16:00)
[2024-02-23] MEDS: GABAPENTIN 400 MG CAP PO SCH (18:09)
[2024-02-23] MEDS: QUEtiapine 50 MG TAB PO SCH (21:14)
--- NOTE | 2024-02-24 15:34 | P.PN ---
Progress Note - Text Progress Note Date: 02/24/24 Interval History: Patient was seen bedside this afternoon. She was somnolent and stated that she slept well last night with Seroquel. Discussed the mildly elevated transaminitis and patient was agreeable with repeat labs for tomorrow morning. Patient states that her mood is "good ". She reports having spoken with her sister during visiting hours today. She denies any concerns at this time. She reports tolerating the medication well and would like to be continued on them. She endorses fear energy and appetite today. At this time patient denies any suicidal or homicidal ideations, intent or plan. Patient denies any auditory, visual hallucinations and denies any paranoia or delusions. Patient denies any side effects from the medications and has been compliant with meds. Mental Status Exam: General Appearance: Patient appears to be older than stated age is alert, directable, and attempts to cooperate. Patient appears to have poor hygiene and grooming. disheveled, wearing a hospital gown Behavior: Patient is seated without any agitated behavior. Withdrawn Speech: Patient's speech is fluent and nonpressured. Mood/Affect: Patient reports their mood is depressed, affect is congruent and constricted. Suicidality/Homicidality: Patient denies having any homicidal ideation intent or plan. Denies any suicidal ideations intent or plan Perceptions: Patient denies any visual hallucinations and denies any auditory hallucinations Though content/process: There is no evidence of any delusional thought content and thought process is linear and goal-directed. concrete. Memory and concentration: AOX3, grossly intact for the purposes of this session. Can spell "WORLD" backwards Judgment and insight: Poor Assessment major depressive disorder, without psychotic features hypothyroidism cocaine abuse Cannabis use disorder Plan: -Patient is admitted under voluntary status to [facility]HU for stabilization of psychiatric symptoms and safety. Patient has signed adult voluntary form and medication consent and is placed in patient's chart. -Medications : Seroquel 50mg qhs for sleep/mood, effexor 75mg daily for depression/anxiety -Ativan and Haldol PRN for agitation/aggression -Patient was counselled on substance abuse and desired to cut back on use -Patient was informed of the risks, benefits and side effects of the medication and patient verbally consented to taking the medications. -Internal Medicine on board -NRT -nicotine patch -SW on board for discharge planning. Encourage patient to participate in groups to work on coping skills.
--- NOTE | 2024-02-25 02:15 | P.CONS ---
History of Present Illness - Reason for Consult Consult date: 02/24/24 - History of Present Illness The patient is a 53-year-old female with a PMH of hypothyroidism who had presented to the emergency room complaining of depression and suicidal ideation. The patient was admitted to the mental health unit where she was seen and evaluated. Patient notes that she is currently experiencing homelessness and having a hard time coping with all the stressors of life. She does report recent crack cocaine and marijuana use. She denied any additional complaints. Denied experiencing chest discomfort, shortness breath, fever, chills, cough, nausea, vomiting, abdominal pain, diarrhea. Review of systems: Pertinent positives and negatives as discussed in HPI, a complete review of systems was performed and all other systems are negative. Physical examination: General: non toxic, no distress, appears at stated age, normal weight Derm: no unusual rashes/lesions, no unusual ecchymoses, warm, dry Head: atraumatic, normocephalic, symmetric Eyes: EOMI, no lid lag, anicteric sclera ENT: Nose and ears atraumatic, no thrush, no pharyngeal erythema Neck: trachea midline, supple Mouth: no lip lesion, mucus membranes moist Cardiovascular: S1S2 reg, no murmur, no edema Lungs: CTA bilateral, no rhonchi, no rales , no accessory muscle use Abdominal: soft, nontender to palpation, no guarding Ext: no gross muscle atrophy, no contractures, Neuro: No gross focal neuro deficits noted Psych: Alert, oriented, appropriate affect Assessment: Marijuana abuse Hypokalemia Transaminitis, mild Depression with suicidal ideation Imaging: None performed Data Review: Reviewed with WBC count 4.1, low 11.6, potassium 3.4, AST 46, ALT 38, with urine toxicology positive for marijuana Plan: Advised on importance of cessation from marijuana use Replace potassium and monitor for resolution Pulmonary depression and suicidal ideation to the primary psychiatry service Thank you for allowing us to participate in the care of this patient. We will follow peripherally. Do not hesitate to contact us with questions. Someone can be reached from the [facility] hospitalist group at all hours of the day at [phone]. Past Medical History Past Medical History: Cancer, GERD/Reflux, Osteoarthritis (OA), Thyroid Disorder Additional Past Medical History / Comment(s): Neuropathy lobo legs and feet, "Arachnoid" 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, hx "medically induced seizures", migraines, gout, cervical cancer, hypotension, hiatal hernia, IBS, History of Any Multi-Drug Resistant Organisms: None Reported Past Surgical History: Cholecystectomy, Hysterectomy Past Anesthesia/Blood Transfusion Reactions: No Reported Reaction Smoking Status: Never smoker - Past Family History Mother Family Medical History: Cancer Medications and Allergies Home Medications Medication Instructions Recorded Confirmed Type ALPRAZolam [Xanax] 1 mg PO TID PRN #10 tab 01/19/15 06/28/18 Rx Aspirin 325 mg PO DAILY 10/25/17 06/28/18 History Diclofenac Sodium [Voltaren] 75 mg PO BID PRN 10/25/17 06/28/18 History Folic Acid (Dose Unknown) 1 tab PO BID 10/25/17 06/28/18 History Gabapentin [Neurontin] 600 mg PO TID 10/25/17 06/28/18 History Levothyroxine Sodium [Synthroid] 100 mcg PO DAILY 10/25/17 06/28/18 History SUMAtriptan succinate [Imitrex] 50 mg PO DIRECTED PRN 10/25/17 06/28/18 History Topiramate [Topamax] 25 mg PO 5XD 10/25/17 06/28/18 History Vortioxetine Hydrobromide 20 mg PO QAM 10/25/17 06/28/18 History [Trintellix] Cariprazine HCl [Vraylar] 1.5 mg PO QAM 06/26/18 06/28/18 History Venlafaxine HCl [Effexor] 75 mg PO QAM 06/26/18 06/28/18 History Amoxic-Pot Clav 875-125Mg 1 tab PO Q12HR 10 Days #20 tab 12/03/22 Rx [Augmentin 875-125] Allergies Allergy/AdvReac Type Severity Reaction Status Date / Time naproxen AdvReac Abdominal Verified 02/22/24 22:26 Pain Physical Exam Vitals: Vital Signs Temp Pulse Resp BP Pulse Ox 02/24/24 06:27 97.2 F L 81 17 101/70 97 Results CBC & Chem 7: 02/23/24 07:01 02/23/24 07:01
--- NOTE | 2024-02-25 10:14 | P.PN ---
Progress Note - Text Progress Note Date: 02/25/24 Interval History: Patient was seen bedside this morning. She was somnolent and stated that she slept well last night with Seroquel. Discussed the mildly elevated transaminitis and patient was agreeable with repeat labs today (awaiting lab draw). Patient states that her mood is "good " but appears withdrawn. She answers questions briefly and does not elaborate. She denies any concerns at this time. She reports tolerating the medication well and would like to be continued on them. She endorses sleeping well without concerns. Encouraged to engage on the milieu. She reports good appetite. At this time patient denies any suicidal or homicidal ideations, intent or plan. Patient denies any auditory, visual hallucinations and denies any paranoia or delusions. Patient denies any side effects from the medications and has been compliant with meds. Mental Status Exam: General Appearance: Patient appears to be older than stated age is alert, directable, and attempts to cooperate. Patient appears to have poor hygiene and grooming. disheveled, wearing a hospital gown Behavior: Patient is seated without any agitated behavior. Withdrawn Speech: Patient's speech is fluent and nonpressured. Mood/Affect: Patient reports their mood is "good", affect is depressed. Suicidality/Homicidality: Patient denies having any homicidal ideation intent or plan. Denies any suicidal ideations intent or plan Perceptions: Patient denies any visual hallucinations and denies any auditory hallucinations Though content/process: There is no evidence of any delusional thought content and thought process is linear and goal-directed. concrete. Memory and concentration: AOX3, grossly intact for the purposes of this session. Can spell "WORLD" backwards Judgment and insight: Poor Assessment major depressive disorder, without psychotic features hypothyroidism cocaine abuse Cannabis use disorder Plan: -Patient is admitted under voluntary status to MHU for stabilization of psychiatric symptoms and safety. Patient has signed adult voluntary form and medication consent and is placed in patient's chart. -Medications : Seroquel 50mg qhs for sleep/mood, increase effexor to 150 mg daily for depression/anxiety -Ativan and Haldol PRN for agitation/aggression -Patient was counselled on substance abuse and desired to cut back on use -Patient was informed of the risks, benefits and side effects of the medication and patient verbally consented to taking the medications. -Internal Medicine on board -NRT -nicotine patch - on board for discharge planning. Encourage patient to participate in groups to work on coping skills.
[2024-02-25] MEDS: VENLAFAXINE HCL ER 75 MG CAP PO STA (11:48)
[2024-02-25 12:08] LABS: ALT 60 U/L (4-34); AST 67 U/L (14-36); African American GFR (CKD) 74 (>60 ml/min/1.73 sqM); Albumin 3.5 g/dL (3.5-5.0); Alkaline Phosphatase 61 U/L (38-126); Anion Gap 6 mmol/L; Blood Urea Nitrogen 9 mg/dL (7-17); Calcium 9.4 mg/dL (8.4-10.2); Carbon Dioxide 27 mmol/L (22-30); Chloride 107 mmol/L (98-107); Glucose 87 mg/dL (74-99); Non-African American GFR(CKD) 64 (>60 ml/min/1.73 sqM); Potassium 3.9 mmol/L (3.5-5.1); Sodium 140 mmol/L (137-145); Total Bilirubin 0.3 mg/dL (0.2-1.3)
[2024-02-25] MEDS: traZODone HCL 50 MG TAB PO SCH (20:40)
[2024-02-26] MEDS: VENLAFAXINE HCL ER 150 MG CAP PO SCH (09:30)
--- NOTE | 2024-02-26 10:32 | P.PN ---
Progress Note - Text Progress Note Date: 02/26/24 Interval History: Patient was seen in the office today. Patient states that her mood is "ok " but continues to appear withdrawn. She states she is having some anxiety, due to her sister wanting access to her medical records, and she does not want her to. Value Stream Manager explained to the patient that she does not have to sign a release for her sister. She answers questions briefly and does not elaborate. She denies any concerns at this time. She endorses sleeping well without concerns. Encouraged to engage on the milieu. She reports good appetite. She states she would like to go to rehab upon discharge, telegraphic typewriter mechanic told patient that she would have to call the access line. At this time patient denies any suicidal or homicidal ideations, intent or plan. Patient denies any auditory, visual hallucinations and denies any paranoia or delusions. Patient denies any side effects from the medications and has been compliant with meds. Mental Status Exam: General Appearance: Patient appears to be older than stated age is alert, directable, and attempts to cooperate. Patient appears to have poor hygiene and grooming. disheveled, wearing a hospital gown Behavior: Patient is seated without any agitated behavior. Withdrawn Speech: Patient's speech is fluent and nonpressured. Mood/Affect: Patient reports their mood is "ok", affect is improving mildly Suicidality/Homicidality: Patient denies having any homicidal ideation intent or plan. Denies any suicidal ideations intent or plan Perceptions: Patient denies any visual hallucinations and denies any auditory hallucinations Though content/process: There is no evidence of any delusional thought content and thought process is linear and goal-directed. concrete. Memory and concentration: AOX3, grossly intact for the purposes of this session. Judgment and insight: Poor, improving mildly Assessment: major depressive disorder, without psychotic features hypothyroidism cocaine abuse Cannabis use disorder Plan: -Patient is admitted under voluntary status to MHU for stabilization of psychiatric symptoms and safety. Patient has signed adult voluntary form and medication consent and is placed in patient's chart. -Medications : Trazodone 50 mg qhs for sleep/mood, effexor 150 mg daily for depression/anxiety -Ativan and Haldol PRN for agitation/aggression -NRT - nicotine patch -SW on board for discharge planning. Encourage patient to participate in groups to work on coping skills. Likely discharge monday- if patient is more stable.
[2024-02-26] MEDS: haloperidoL 5 MG TAB PO PRN (21:59)
--- NOTE | 2024-02-27 11:24 | P.PN ---
Progress Note - Text Progress Note Date: 02/27/24 Interval History: Patient was seen in in her room at the bedside this morning. She was sleeping, but easily awakened. She states that she is doing pretty good today. She has been secluding to her room, filing writer encouraged patient to get up more during the day, and participate or attend groups more. She endorses sleeping well without concerns. She reports good appetite. Patient is not eligible for rehab due to her medical coverage, unless she was self pay. At this time patient denies any suicidal or homicidal ideations, intent or plan. Patient denies any auditory, visual hallucinations and denies any paranoia or delusions. Patient denies any side effects from the medications and has been compliant with meds. Mental Status Exam: General Appearance: Patient appears to be older than stated age is alert, directable, and attempts to cooperate. Patient appears to have poor hygiene and grooming. disheveled, wearing a hospital gown Behavior: Patient is seated without any agitated behavior. Withdrawn Speech: Patient's speech is fluent and nonpressured. Mood/Affect: Patient reports their mood is "good", affect is improving mildly Suicidality/Homicidality: Patient denies having any homicidal ideation intent or plan. Denies any suicidal ideations intent or plan Perceptions: Patient denies any visual hallucinations and denies any auditory hallucinations Though content/process: There is no evidence of any delusional thought content and thought process is linear and goal-directed. concrete.mildly improving Memory and concentration: AOX3, grossly intact for the purposes of this session. Judgment and insight: improving mildly Assessment: major depressive disorder, without psychotic features hypothyroidism cocaine abuse Cannabis use disorder Plan: -Patient is admitted under voluntary status to MHU for stabilization of psychiatric symptoms and safety. Patient has signed adult voluntary form and medication consent and is placed in patient's chart. -Medications : Trazodone 50 mg qhs for sleep/mood, Effexor 150 mg daily for depression/anxiety. Increase gabapentin to 600 mg 3 times daily for neuropathic pain as per patient's request -Ativan and Haldol PRN for agitation/aggression -NRT - nicotine patch -SW on board for discharge planning. Encourage patient to participate in groups to work on coping skills. Likely discharge if patient is more stable.
[2024-02-27] MEDS: GABAPENTIN 300 MG CAP PO SCH (12:17)
[2024-02-28 06:55] VITALS: RESP 17; TEMP 98.1
[2024-02-28] MEDS ORDERED: diphenhydrAMINE 25 MG CAP PO PRN (11:33)
--- NOTE | 2024-02-28 11:36 | P.PN ---
Progress Note - Text Progress Note Date: 02/28/24 Interval History: Patient was seen in in her room at the bedside this morning. She was resting w hen the designer/writer entered the room, she was awakened quite easily. She stated that she is feeling pretty good today. She claims that she was having some racing thoughts last night while trying to sleep, and required some PRN's. Pill Packer encouraged patient to get out of bed and attend groups and shower, patient verbalized understanding. At this time patient denies any suicidal or homicidal ideations, intent or plan. Patient denies any auditory, visual hallucinations and denies any paranoia or delusions. Patient denies any side effects from the medications and has been compliant with meds. Mental Status Exam: General Appearance: Patient appears to be older than stated age is alert, directable, and attempts to cooperate. Patient appears to have improving hygiene and grooming. wearing a hospital gown Behavior: Patient is seated without any agitated behavior. Withdrawn Speech: Patient's speech is fluent and nonpressured. Mood/Affect: Patient reports their mood is "pretty good", affect is improving mildly Suicidality/Homicidality: Patient denies having any homicidal ideation intent or plan. Denies any suicidal ideations intent or plan Perceptions: Patient denies any visual hallucinations and denies any auditory hallucinations Though content/process: There is no evidence of any delusional thought content and thought process is linear and goal-directed. concrete. mildly improving Memory and concentration: AOX3, grossly intact for the purposes of this session. Judgment and insight: improving mildly Assessment: major depressive disorder, without psychotic features hypothyroidism cocaine abuse Cannabis use disorder Plan: -Patient is admitted under voluntary status to MHU for stabilization of psychiatric symptoms and safety. Patient has signed adult voluntary form and medication consent and is placed in patient's chart. -Medications : add Remeron 15mg qhs for sleep. D/C Trazodone, Effexor 150 mg daily for depression/anxiety. gabapentin 600 mg 3 times daily for neuropathic p ain add Benedryl 25mg qhs prn for sleep. -encourage fluids -Ativan and Haldol PRN for agitation/aggression -NRT - nicotine patch -SW on board for discharge planning. Encourage patient to participate in groups to work on coping skills. Likely discharge tomorrow if patient is more stable.
[2024-02-28] MEDS: MIRTAZAPINE 15 MG TAB PO SCH (21:18)
[2024-02-29 06:57] VITALS: PULSE 76
[2024-02-29 10:17] VITALS: BP 103/70
[2024-02-29] MEDS: VENLAFAXINE HCL ER 75 MG CAP PO STA (11:02)
--- NOTE | 2024-02-29 11:04 | P.DS ---
Providers Date of admission: 02/22/24 21:09 Expected date of discharge: 02/29/24 Attending physician: Glenroy Ruiz MD Consults: 02/22/24 21:11 Consult Physician Routine Consulting Provider: [facility] Consult Reason/Comments: H&P Do you want consulting provider notified?: Yes Primary care physician: Stated None - Discharge Diagnosis(es) (1) Major depressive disorder without psychotic features Current Visit: Yes Status: Acute Priority: High (2) Hypothyroidism Current Visit: Yes Status: Acute Priority: High (3) Cocaine abuse Current Visit: Yes Status: Acute Priority: High (4) Cannabis use disorder Current Visit: Yes Status: Acute Priority: Medium Hospital Course: Admission HPI: Admission note was completed by communications writer" Patient presented to the hospital on 02/21. As per EPS note, "Pt brought self to ER d/t worsening depression. During assessment pt is flat and tearful. Pt states that she is suicidal and does not feel like she can keep herself safe. She does have access to guns/weapons. Pt states that she attempted to kill herself in December of this year by overdose. She states that they way she is feeling now is how she was feeling prior to her overdose. While hospitalized for overdose she had a seizure. She has not had one since. She does not have a seizure diagnosis. She has been off her medication for a few weeks d/t being kicked out of her old boyfriends house. She is now homeless in [place]. She states that she could go to her sisters or sons house, if needed. She has struggled with the use of cocaine since 2019, she has been clean for about 2 weeks and uds was negative for cocaine. Pt states that her family does not believe her that she isn't using. She was going to go to rehab today but they would not take her because she didn't have any of her medications. She states that she felt she needed mental help and not rehab. She also admits to being a sex addict and she states she was using cocaine because it enhanced it for her. Pt denies the use of etoh and says just rare marijuana use. Pt denies having any supports."Upon today's interview, she states that she was feeling suicidal, so she came to the hospital. She has been depressed all her life, and states it gets worse at times. Her sister brought her into the hospital. She states she has been off her medications for a couple weeks, because she ran out. She is endorsing anxiety. She states her stressors are being homeless. Patient is tearful at times. She is still endorsing thoughts of suicide. She states her sleep has been terrible. Patient is very vague. She states her boyfriend may be out to get her. Patient denies homicidal ideations intent or plan. At this time patient denies any auditory or visual hallucinations. Patient denies any flight of ideas racing thoughts and increased in goal directed behavior. Patient UDS was positive for marijuana." Hospital course: Upon admission to the unit patient was directable and agreeable to commence treatment and signed adult voluntary form. Patient mainly kept to herself during her inpatient stay however with time and treatment she eventually got along well with other patients on the unit and followed unit protocol and improved overall. Patient was compliant with the medications and denied any side effects throughout hospital course. Patient was started on Effexor and increased to a dose of 225 mg daily for mood/anxiety, Remeron increased to dose of 30 mg nightly for mood/anxiety/sleep. Benadryl as needed for insomnia, patient was also restarted back on gabapentin for neuropathic pain. Patient spoke of her stressors and engaged in therapy both group and individual. Patient was also seen by medical team for history and physical exam. Throughout the course of the hospitalization patient gradually improved with regards to mood, anxiety, suicidal thoughts, sleep and returned back to their baseline level of functioning. On the day of discharge patient denied any suicidal or homicidal ideations intent or plan denied any auditory or visual hallucinations. Patient endorsed wanting to live for her health and future. The patient denied any access to guns or weapons. Patient denied any paranoia and did not endorse any delusions. Patient does have a significant history of substance abuse and was counseled on abstaining from all substances including alcohol and marijuana. patient was accepted into [facility] tomorrow morning, she will be picked up tomorrow by the shuttle, her sister will be taking her there tomorrow. Patient was also counseled on the medications and need for regular compliance and was encouraged to follow-up with their outpatient appointment for mental health and also for primary care. Prior to discharge a family meeting will be arranged by social staff worker to answer any questions and ensure safety upon discharge. Mental status exam: General Appearance: Patient appears to be stated age is alert, pleasant, and cooperative. Patient is in no acute distress and has improved hygiene and grooming Behavior: Patient is calmly seated without any agitated behavior. cooperative Speech: Patient's speech is fluent and nonpressured. Mood/Affect: Patient reports their mood is "good", affect is congruent Suicidality/Homicidality: Patient denies having any suicidal or homicidal ideation intent or plan. Perceptions: Patient denies any auditory or visual hallucinations. Though content/process: There is no evidence of any delusional thought content and thought process is linear and goal-directed. More future oriented Memory and concentration: AOX3, grossly intact for the purposes of this session. Can spell "WORLD" backwards correctly. Judgment and insight: Chronically poor, however has improved with guarded prognosis Impression: major depressive disorder, without psychotic features hypothyroidism cocaine abuse Cannabis use disorder Plan: -Continue with discharge today as patient has improved and stabilized psychiatrically and is not currently an imminent threat to herself and/or others. Patient will remain at chronically elevated risk for harm to self and/or others due to her impulsivity and substance abuse. -Continue medications: Remeron 30 mg nightly for mood/anxiety/sleep, Effexor XR 225 mg daily for mood/anxiety, Benadryl 25 mg nightly as needed for insomnia, gabapentin 600 mg twice daily for neuropathic pain. -Patient was counseled on the need for medication compliance and appropriate follow-up at mental health and also primary care for medical issues. Patient verbalized understanding and agreed. -Social work to arrange for and conduct family meeting to ensure safety upon discharge and answer any questions/concerns. Social work also to arrange for patients follow up appointments with [facility] for psychiatric care along with follow up with primary care provider. -Patient counseled on abstaining from recreational drugs and marijuana and alcohol. Was informed/educated on the adverse effects on their physical and mental health. Patient verbally agreed and understood. Patient will be going to [place] [facility] tomorrow, patient's sister will be taking her there to the shuttle for pickup. -Patient was instructed to return to the hospital or seek immediate medical care if their psychiatric or medical symptoms do worsen or reoccur. Allergies Allergy/AdvReac Type Severity Reaction Status Date / Time naproxen AdvReac Abdominal Verified 02/22/24 22:26 Pain Laboratory Results WBC 4.1 k/uL (3.8-10.6) 02/23/24 07:01 RBC 3.92 m/uL (3.80-5.40) 02/23/24 07:01 Hgb 11.6 gm/dL (11.4-16.0) 02/23/24 07:01 Hct 34.2 % (34.0-46.0) 02/23/24 07:01 MCV 87.3 fL (80.0-100.0) 02/23/24 07:01 MCH 29.6 pg (25.0-35.0) 02/23/24 07:01 MCHC 33.9 g/dL (31.0-37.0) 02/23/24 07:01 RDW 12.9 % (11.5-15.5) 02/23/24 07:01 Plt Count 182 k/uL (150-450) 02/23/24 07:01 MPV 8.5 02/23/24 07:01 Neutrophils % 47 % 02/23/24 07:01 Lymphocytes % 42 % 02/23/24 07:01 Monocytes % 5 % 02/23/24 07:01 Eosinophils % 4 % 02/23/24 07:01 Basophils % 1 % 02/23/24 07:01 Neutrophils # 1.9 k/uL (1.3-7.7) 02/23/24 07:01 Lymphocytes # 1.7 k/uL (1.0-4.8) 02/23/24 07:01 Monocytes # 0.2 k/uL (0-1.0) 02/23/24 07:01 Eosinophils # 0.2 k/uL (0-0.7) 02/23/24 07:01 Basophils # 0.0 k/uL (0-0.2) 02/23/24 07:01 Sodium 140 mmol/L (137-145) 02/25/24 11:27 Potassium 3.9 mmol/L (3.5-5.1) 02/25/24 11:27 Chloride 107 mmol/L (98-107) 02/25/24 11:27 Carbon Dioxide 27 mmol/L (22-30) 02/25/24 11:27 Anion Gap 6 mmol/L 02/25/24 11:27 BUN 9 mg/dL (7-17) 02/25/24 11:27 Creatinine 1.00 mg/dL (0.52-1.04) 02/25/24 11:27 Est GFR (CKD-EPI)AfAm 74 (>60 ml/min/1.73 sqM) 02/25/24 11:27 Est GFR (CKD-EPI)NonAf 64 (>60 ml/min/1.73 sqM) 02/25/24 11:27 Glucose 87 mg/dL (74-99) 02/25/24 11:[address] Glu mg/dL 97 mg/dL 02/23/24 07:01 Hemoglobin A1c 5.0 % (<=6.0) 02/23/24 07:01 Calcium 9.4 mg/dL (8.4-10.2) 02/25/24 11:27 Total Bilirubin 0.3 mg/dL (0.2-1.3) 02/25/24 11:27 AST 67 U/L (14-36) H 02/25/24 11:27 ALT 60 U/L (4-34) H 02/25/24 11:27 Alkaline Phosphatase 61 U/L (38-126) 02/25/24 11:27 Total Protein 6.0 g/dL (6.3-8.2) L 02/25/24 11:27 Albumin 3.5 g/dL (3.5-5.0) 02/25/24 11:27 TSH 2.410 mIU/L (0.465-4.680) 02/23/24 07:01 Urine Color Colorless 02/22/24 19:08 Urine Appearance Clear (Clear) 02/22/24 19:08 Urine pH 6.0 (5.0-8.0) 02/22/24 19:08 Ur Specific [place] 1.009 (1.001-1.035) 02/22/24 19:08 Urine Protein Negative (Negative) 02/22/24 19:08 Urine Glucose (UA) Negative (Negative) 02/22/24 19:08 Urine Ketones Negative (Negative) 02/22/24 19:08 Urine Blood Negative (Negative) 02/22/24 19:08 Urine Nitrite Negative (Negative) 02/22/24 19:08 Urine Bilirubin Negative (Negative) 02/22/24 19:08 Urine Urobilinogen <2.0 mg/dL (<2.0) 02/22/24 19:08 Ur Leukocyte Esterase Trace (Negative) H 02/22/24 19:08 Urine RBC <1 /hpf (0-5) 02/22/24 19:08 Urine WBC 3 /hpf (0-5) 02/22/24 19:08 Ur Squamous Epith Cells 1 /hpf (0-4) 02/22/24 19:08 Urine HCG, Qual Not Detected (Not Detectd) 02/22/24 19:08 Urine Opiates Screen Not Detected (NotDetected) 02/22/24 19:08 Ur Oxycodone Screen Not Detected (NotDetected) 02/22/24 19:08 Urine Methadone Screen Not Detected (NotDetected) 02/22/24 19:08 Ur Barbiturates Screen Not Detected (NotDetected) 02/22/24 19:08 U Tricyclic Antidepress Not Detected (NotDetected) 02/22/24 19:08 Ur Phencyclidine Scrn Not Detected (NotDetected) 02/22/24 19:08 Ur Amphetamines Screen Not Detected (NotDetected) 02/22/24 19:08 U Methamphetamines Scrn Not Detected (NotDetected) 02/22/24 19:08 U Benzodiazepines Scrn Not Detected (NotDetected) 02/22/24 19:08 Urine Cocaine Screen Not Detected (NotDetected) 02/22/24 19:08 U Marijuana (THC) Screen Detected (NotDetected) H 02/22/24 19:08 SARS-CoV-2 (PCR) Not Detected (Not Detectd) 02/22/24 20:21 Vital Signs Temp 98.1 F 02/28/24 06:54 Pulse 76 02/29/24 06:56 Resp 17 02/28/24 06:54 BP 90/58 02/29/24 08:23 Pulse Ox 97 02/28/24 06:54 FiO2 Patient Condition at Discharge: Stable Plan - Discharge Summary Discharge Rx Participant: No New Discharge Prescriptions: New Folic Acid 1 mg PO BID 14 Days #28 tab Mirtazapine [Remeron] 30 mg PO HS 14 Days #14 tab Topiramate [Topamax] 25 mg PO QID 14 Days #56 tab diphenhydrAMINE [Benadryl] 25 mg PO HS PRN 30 Days #30 cap PRN Reason: Insomnia Venlafaxine HCl ER [Effexor Xr] 225 mg PO DAILY 14 Days #42 cap Gabapentin 600 mg PO BID 14 Days #56 tab Continue SUMAtriptan succinate [Imitrex] 50 mg PO DIRECTED PRN PRN Reason: migraines Diclofenac Sodium [Voltaren] 75 mg PO BID PRN PRN Reason: Pain Aspirin 325 mg PO DAILY 14 Days #14 tab Levothyroxine Sodium [Synthroid] 100 mcg PO DAILY 30 Days #30 tab Discontinued ALPRAZolam [Xanax] 1 mg PO TID PRN #10 tab PRN Reason: Anxiety Vortioxetine Hydrobromide [Trintellix] 20 mg PO QAM Topiramate [Topamax] 25 mg PO 5XD Gabapentin [Neurontin] 600 mg PO TID Folic Acid (Dose Unknown) 1 tab PO BID Venlafaxine HCl [Effexor] 75 mg PO QAM Cariprazine HCl [Vraylar] 1.5 mg PO QAM Amoxic-Pot Clav 875-125Mg [Augmentin 875-125] 1 tab PO Q12HR 10 Days #20 tab Discharge Medication List Diclofenac Sodium [Voltaren] 75 mg PO BID PRN 10/25/17 [History] SUMAtriptan succinate [Imitrex] 50 mg PO DIRECTED PRN 10/25/17 [History] Aspirin 325 mg PO DAILY 14 Days #14 tab 02/29/24 [Rx] Folic Acid 1 mg PO BID 14 Days #28 tab 02/29/24 [Rx] Gabapentin 600 mg PO BID 14 Days #56 tab 02/29/24 [Rx] Levothyroxine Sodium [Synthroid] 100 mcg PO DAILY 30 Days #30 tab 02/29/24 [Rx] Mirtazapine [Remeron] 30 mg PO HS 14 Days #14 tab 02/29/24 [Rx] Topiramate [Topamax] 25 mg PO QID 14 Days #56 tab 02/29/24 [Rx] Venlafaxine HCl ER [Effexor Xr] 225 mg PO DAILY 14 Days #42 cap 02/29/24 [Rx] diphenhydrAMINE [Benadryl] 25 mg PO HS PRN 30 Days #30 cap 02/29/24 [Rx] Follow up Appointment(s)/Referral(s): [facility] [Outside] - 03/01/24 1:30 pm None,Stated [Primary Care Provider] - 1-2 days Activity/Diet/Wound Care/Special Instructions: Avoid the use of street drugs and alcohol. Take all medications as prescribed. When you are in need of refills on your medications, please contact your medical provider and/or outpatient psychiatrist/provider to have this done. Please go to your scheduled outpatient appointment for aftercare treatment. If symptoms return or become worse, call the crisis line at and/or go to the nearest emergency room for evaluation. National Suicide Hotline 992 Discharge Disposition: HOME SELF-CARE
[2024-03-01] MEDS ORDERED: VENLAFAXINE HCL ER 75 MG CAP PO SCH (09:00)
== END 2024-02-29 14:10 | disposition home or self-care (01) | DRG 881 ==
LOC: EC 16:24 → 3MHU 21:09
PROVIDERS: ADMIT Psychiatry & Neurology Psychiatry; ATTEND Psychiatry & Neurology Psychiatry
DX: F32.9 Major depressive disorder, single episode, unspecified (principal); R45.851 Suicidal ideations; Z59.00 Homelessness unspecified; E03.9 Hypothyroidism, unspecified; E87.6 Hypokalemia; F06.4 Anxiety disorder due to known physiological condition; F12.10 Cannabis abuse, uncomplicated; F14.10 Cocaine abuse, uncomplicated; F31.9 Bipolar disorder, unspecified; Z79.82 Long term (current) use of aspirin; Z79.890 Hormone replacement therapy; Z79.899 Other long term (current) drug therapy; Z85.41 Personal history of malignant neoplasm of cervix uteri; Z90.710 Acquired absence of both cervix and uterus; Z91.51 Personal history of suicidal behavior; Z11.52 Encounter for screening for COVID-19
CPT/HCPCS: 80053; 80306; 81001; 81025; 82075; 83036; 84443; 85025; 87635; 99285

== ENCOUNTER 2024-04-07 07:35 | Emergency (ER) | payer MEDICARE ==
[2024-04-07 07:42] VITALS: BP 104/65; PULSE 97; RESP 18; TEMP 98.6
--- NOTE | 2024-04-07 07:45 | ED ---
General Adult HPI - General Stated complaint: Med Refill Time Seen by Provider: 04/07/24 07:37 Source: patient, RN notes reviewed Mode of arrival: ambulatory Limitations: no limitations - History of Present Illness Initial comments: 53-year-old female presents emergency department with chief complaint of medication refill. Patient states she is out of her psychiatric medication patient states she was discharged with medications from psychiatrist in February. She has been trying to contact and not regarding PCP follow-up. Patient states she is out of her medications. Patient denies being suicidal homicidal denies any complaints otherwise. - Related Data Home Medications Medication Instructions Recorded Confirmed Diclofenac Sodium [Voltaren] 75 mg PO BID PRN 10/25/17 02/29/24 SUMAtriptan succinate [Imitrex] 50 mg PO DIRECTED PRN 10/25/17 02/29/24 Previous Rx's Medication Instructions Recorded Aspirin 325 mg PO DAILY 14 Days #14 tab 04/07/24 Folic Acid 1 mg PO BID 14 Days #28 tab 04/07/24 Gabapentin 600 mg PO BID 14 Days #56 tab 04/07/24 Levothyroxine Sodium [Synthroid] 100 mcg PO DAILY 30 Days #30 tab 04/07/24 Mirtazapine [Remeron] 30 mg PO HS 14 Days #14 tab 04/07/24 Topiramate [Topamax] 25 mg PO QID 14 Days #56 tab 04/07/24 Venlafaxine HCl ER [Effexor Xr] 225 mg PO DAILY 14 Days #42 cap 04/07/24 diphenhydrAMINE [Benadryl] 25 mg PO HS PRN 30 Days #30 cap 04/07/24 Allergies Allergy/AdvReac Type Severity Reaction Status Date / Time naproxen AdvReac Abdominal Verified 02/22/24 22:26 Pain Review of Systems ROS Statement: Those systems with pertinent positive or pertinent negative responses have been documented in the HPI. ROS Other: All systems not noted in ROS Statement are negative. Past Medical History Past Medical History: Cancer, GERD/Reflux, Osteoarthritis (OA), Thyroid Disorder Additional Past Medical History / Comment(s): Neuropathy lobo legs and feet, "Arachnoid" 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, hx "medically induced seizures", migraines, gout, cervical cancer, hypotension, hiatal hernia, IBS, History of Any Multi-Drug Resistant Organisms: None Reported Past Surgical History: Cholecystectomy, Hysterectomy Past Anesthesia/Blood Transfusion Reactions: No Reported Reaction Smoking Status: Never smoker - Past Family History Mother Family Medical History: Cancer General Exam General appearance: alert, in no apparent distress Head exam: Present: atraumatic, normocephalic, normal inspection Eye exam: Present: normal appearance, PERRL, EOMI. Absent: scleral icterus, conjunctival injection, periorbital swelling ENT exam: Present: normal exam, normal oropharynx, mucous membranes moist Neck exam: Present: normal inspection, full ROM. Absent: tenderness, meningismus, lymphadenopathy Respiratory exam: Present: normal lung sounds bilaterally. Absent: respiratory distress, wheezes, rales, rhonchi, stridor Cardiovascular Exam: Present: regular rate, normal rhythm, normal heart sounds. Absent: systolic murmur, diastolic murmur, rubs, gallop, clicks Neurological exam: Present: alert, oriented X3, CN II-XII intact Psychiatric exam: Present: normal affect, normal mood Medical Decision Making - Medical Decision Making Was pt. sent in by a medical professional or institution (, PA, DIE FINISHER FORGING, urgent care, hospital, or usp...) When possible be specific @ -No Did you speak to anyone other than the patient for history (EMS, parent, family, police, friend...)? What history was obtained from this source @ -No Did you review nursing and triage notes (agree or disagree)? Why? @ -I reviewed and agree with nursing and triage notes Were old charts reviewed (outside hosp., previous admission, EMS record, old EKG, old radiological studies, urgent care reports/EKG's, usp records)? Report findings @ -No old charts were reviewed Differential Diagnosis (chest pain, altered mental status, abdominal pain women, abdominal pain men, vaginal bleeding, weakness, fever, dyspnea, syncope, headache, dizziness, GI bleed, back pain, seizure, CVA, palpatations, mental health, musculoskeletal)? @ -Differential Mental Health Medication refill, depression, anxiety, bipolar, psychosis, schizophrenia, borderline personality, situational depression, adjustment disorder, behavioral disorder, brain tumor, malingering, substance abuse, encephalopathy, medication reaction, dementia, hypothyroidism, degenerative neurologic disorder, lupus.... This is not meant to be all-inclusive list EKG interpreted by me (3pts min.). @ -As above X-rays interpreted by me (1pt min.). @ -None done CT interpreted by me (1pt min.). @ -None done U/S interpreted by me (1pt. min.). @ -None done What testing was considered but not performed or refused? (CT, X-rays, U/S, labs)? Why? @ -None What meds were considered but not given or refused? Why? @ -None Did you discuss the management of the patient with other professionals (professionals i.e. , PA, DIE FINISHER FORGING, lab, RT, psych nurse, social security assessor, offal separator, teacher, aoc director intelligence officer, shelter case manager)? Give summary @ -No Was smoking cessation discussed for >3mins.? @ -No Was critical care preformed (if so, how long)? @ -No Were there social determinants of health that impacted care today? How? (Homelessness, low income, unemployed, alcoholism, drug addiction, transportation, low edu. Level, literacy, decrease access to med. care, [facility], rehab)? @ -No Was there de-escalation of care discussed even if they declined (Discuss DNR or withdrawal of care, Hospice)? DNR status @ -No What co-morbidities impacted this encounter? (DM, HTN, Smoking, COPD, CAD, Cancer, CVA, ARF, Chemo, Hep., AIDS, mental health diagnosis, sleep apnea, morbid obesity)? @ -None Was patient admitted / discharged? Hospital course, mention meds given and route, prescriptions, significant lab abnormalities, going to OR and other pertinent info. @ -[Discharge patient was given short course of her prescription she is advised that she needs to contact PCP regarding her medications or psychiatrist. Patient agrees with plan patient has no other complaints currently. Undiagnosed new problem with uncertain prognosis? @ -No Drug Therapy requiring intensive monitoring for toxicity (Heparin, Nitro, Insulin, Cardizem)? @ -No Were any procedures done? @ -No Diagnosis/symptom? @ -Medication refill, anxiety, depression Acute, or Chronic, or Acute on Chronic? @ -Acute Uncomplicated (without systemic symptoms) or Complicated (systemic symptoms)? @ -[Uncomplicated Side effects of treatment? @ -No Exacerbation, Progression, or Severe Exacerbation? @ -No Poses a threat to life or bodily function? How? (Chest pain, USA, MS, pneumonia, PE, COPD, DKA, ARF, appy, cholecystitis, CVA, Diverticulitis, Homicidal, Suicidal, threat to staff... and all critical care pts) @ -No Disposition Clinical Impression: Medication refill, Depression Disposition: HOME SELF-CARE Condition: Stable Additional Instructions: Follow-up with PCP or psychiatrist regarding further medications. Please return to the Emergency Department if symptoms worsen or any other concerns. Prescriptions: Aspirin 325 mg PO DAILY 14 Days #14 tab diphenhydrAMINE [Benadryl] 25 mg PO HS PRN 30 Days #30 cap PRN Reason: Insomnia Venlafaxine HCl ER [Effexor Xr] 225 mg PO DAILY 14 Days #42 cap Folic Acid 1 mg PO BID 14 Days #28 tab Gabapentin 600 mg PO BID 14 Days #56 tab Mirtazapine [Remeron] 30 mg PO HS 14 Days #14 tab Levothyroxine Sodium [Synthroid] 100 mcg PO DAILY 30 Days #30 tab Topiramate [Topamax] 25 mg PO QID 14 Days #56 tab Is patient prescribed a controlled substance at d/c from ED?: No Referrals: None,Stated [Primary Care Provider] - 1-2 days Time of Disposition: 07:45
== END 2024-04-07 07:52 | disposition home or self-care (01) ==
LOC: EC 07:35
DX: Z76.0 Encounter for issue of repeat prescription (principal); F32.A Depression, unspecified; F41.9 Anxiety disorder, unspecified; Z88.6 Allergy status to analgesic agent; Z90.49 Acquired absence of other specified parts of digestive tract
CPT/HCPCS: 99281; 99282

== ENCOUNTER 2024-04-29 23:12 | Observation (INO) | payer MEDICARE ==
[2024-04-29 23:27] VITALS: TEMP 97.4
--- NOTE | 2024-04-29 23:27 | ED ---
Syncope HPI - General Chief Complaint: Syncope Stated Complaint: Syncope Time Seen by Provider: 04/29/24 23:26 Source: patient, family, RN notes reviewed, old records reviewed, Caregiver Mode of arrival: wheelchair Limitations: no limitations - History of Present Illness Initial Comments: This is a 53 female to ER for syncopal events. Recurrent syncope will going to get some dinner tonight. She presents with her son who is here with her, patient states has been sleeping a lot lately has not been feeling well MD Complaint: loss of consciousness -: days(s) Prodromal Symptoms: lightheaded, palpitations -: second(s) Witnessed: yes - by bystander Injuries Sustained Associated with Event: None Current Symptoms: lightheaded History: previous syncopal episode Context: at rest - Related Data Home Medications Medication Instructions Recorded Confirmed Diclofenac Sodium [Voltaren] 75 mg PO BID PRN 10/25/17 02/29/24 SUMAtriptan succinate [Imitrex] 50 mg PO DIRECTED PRN 10/25/17 02/29/24 Previous Rx's Medication Instructions Recorded Aspirin 325 mg PO DAILY 14 Days #14 tab 04/07/24 Folic Acid 1 mg PO BID 14 Days #28 tab 04/07/24 Gabapentin 600 mg PO BID 14 Days #56 tab 04/07/24 Levothyroxine Sodium [Synthroid] 100 mcg PO DAILY 30 Days #30 tab 04/07/24 Mirtazapine [Remeron] 30 mg PO HS 14 Days #14 tab 04/07/24 Topiramate [Topamax] 25 mg PO QID 14 Days #56 tab 04/07/24 Venlafaxine HCl ER [Effexor Xr] 225 mg PO DAILY 14 Days #42 cap 04/07/24 diphenhydrAMINE [Benadryl] 25 mg PO HS PRN 30 Days #30 cap 04/07/24 Allergies Allergy/AdvReac Type Severity Reaction Status Date / Time naproxen AdvReac Abdominal Verified 04/29/24 23:16 Pain Review of Systems ROS Statement: Those systems with pertinent positive or pertinent negative responses have been documented in the HPI. ROS Other: All systems not noted in ROS Statement are negative. Past Medical History Past Medical History: Cancer, GERD/Reflux, Osteoarthritis (OA), Thyroid Disorder Additional Past Medical History / Comment(s): Neuropathy lobo legs and feet, "Arachnoid" 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, hx "medically induced seizures", migraines, gout, cervical cancer, hypotension, hiatal hernia, IBS, History of Any Multi-Drug Resistant Organisms: None Reported Past Surgical History: Cholecystectomy, Hysterectomy Past Anesthesia/Blood Transfusion Reactions: No Reported Reaction Past Psychological History: Anxiety, Bipolar, Depression Smoking Status: Never smoker Past Alcohol Use History: None Reported Past Drug Use History: Marijuana - Past Family History Mother Family Medical History: Cancer General Exam Limitations: no limitations General appearance: alert, in no apparent distress Head exam: Present: atraumatic, normocephalic, normal inspection Eye exam: Present: normal appearance, PERRL, EOMI. Absent: scleral icterus, conjunctival injection, periorbital swelling ENT exam: Present: normal exam, mucous membranes moist Neck exam: Present: normal inspection. Absent: tenderness, meningismus, lymphadenopathy Respiratory exam: Present: normal lung sounds bilaterally. Absent: respiratory distress, wheezes, rales, rhonchi, stridor Cardiovascular Exam: Present: regular rate, normal rhythm, normal heart sounds. Absent: systolic murmur, diastolic murmur, rubs, gallop, clicks GI/Abdominal exam: Present: soft, normal bowel sounds. Absent: distended, tenderness, guarding, rebound, rigid Extremities exam: Present: normal inspection, full ROM, normal capillary refill. Absent: tenderness, pedal edema, joint swelling, calf tenderness Back exam: Present: normal inspection Neurological exam: Present: alert, oriented X3, CN II-XII intact Psychiatric exam: Present: normal affect, normal mood Skin exam: Present: warm, dry, intact, normal color. Absent: rash Course Vital Signs 04/29/24 04/30/24 23:15 00:19 Temperature 97.4 F L Pulse Rate 83 Respiratory 16 14 Rate Blood Pressure 58/44 O2 Sat by Pulse 96 Oximetry - Reevaluation(s) Reevaluation #1: 04/29/24 23:49 Medical records reviewed Reevaluation #2: 04/29/24 23:49 Patient symptoms unchanged, patient has slow to respond, does appear to be altered suspect intoxicant Reevaluation #3: 04/30/24 01:50 Patient informed of results and questions answered Reevaluation #4: Was pt. sent in by a medical professional or institution (, PA, NURSE'S COMPANION, urgent care, hospital, or skilled nursing...) When possible be specific @ -no Did you speak to anyone other than the patient for history (EMS, parent, family, police, friend...)? What history was obtained from this source @ -no Did you review nursing and triage notes (agree or disagree)? Why? @ -agree Are old charts reviewed (outside hosp., previous admission, EMS record, old EKG, old radiological studies, urgent care reports/EKG's, skilled nursing records)? Report findings @ -yes Differential Diagnosis (chest pain, altered mental status, abdominal pain women, abdominal pain men, vaginal bleeding, weakness, fever, dyspnea, syncope, headache, dizziness, GI bleed, back pain, seizure, CVA, palpatations, mental health, musculoskeletal)? @ -prior EKG interpreted by me (3pts min.). @ -yes X-rays interpreted by me (1pt min.). @ -yes negative for acute disease CT interpreted by me (1pt min.). @ -no U/S interpreted by me (1pt. min.). @ -no What testing was considered but not performed or refused? (CT, X-rays, U/S, labs)? Why? @ -none What meds were considered but not given or refused? Why? @ -none Did you discuss the management of the patient with other professionals (professionals i.e. , PA, NURSE'S COMPANION, lab, RT, psych nurse, social service manager, lead handler, teacher, botanical technical officer, case briefer)? Give summary @ -no Was smoking cessation discussed for >3mins.? @ -no Was critical care preformed (if so, how long)? @ -no Were there social determinants of health that impacted care today? How? (Homelessness, low income, unemployed, alcoholism, drug addiction, transportation, low edu. Level, literacy, decrease access to med. care, long-term, rehab)? @ -none Was there de-escalation of care discussed even if they declined (Discuss DNR or withdrawal of care, Hospice)? DNR status @ -no What co-morbidities impacted this encounter? (DM, HTN, Smoking, COPD, CAD, Cancer, CVA, ARF, Chemo, Hep., AIDS, mental health diagnosis, sleep apnea, morbid obesity)? @ -none Was patient admitted / discharged? Hospital course, mention meds given and route, prescriptions, significant lab abnormalities, going to OR and other pertinent info. @ - Undiagnosed new problem with uncertain prognosis? @ -no Drug Therapy requiring intensive monitoring for toxicity (Heparin, Nitro, Insulin, Cardizem)? @ -no Were any procedures done? @ -no Diagnosis/symptom? @ - Acute, or Chronic, or Acute on Chronic? @ -Acute Uncomplicated (without systemic symptoms) or Complicated (systemic symptoms)? @ -Complicated Side effects of treatment? @ -no Exacerbation, Progression, or Severe Exacerbation? @ -exacerbation Poses a threat to life or bodily function? How? (Chest pain, [place], [place], pneumonia, PE, COPD, DKA, ARF, appy, cholecystitis, CVA, Diverticulitis, Homicidal, Suicidal, threat to staff... and all critical care pts) @ -yes Reevaluation #5: Differential Syncope: Valvular disease, hypertrophic cardiomyopathy, pulmonary embolism, tamponade, tachycardia, bradycardia, [place], hypovolemia, hemorrhage, dissection, anemia, intracranial hemorrhage, seizure, hypoglycemia, carbon monoxide poisoning, this is not meant to be an all-inclusive list. Differential Altered Mental Status: Hypoglycemia, DKA, hypercapnia, ETOH, overdose, CO poisoning, trauma, myxedema coma, HTN encephalopathy, infection, encephalitis, psychosis, intercranial hemorrhage, hepatic encephalopathy, meningitis, CVA, this is not meant to be an all-inclusive list - Consultations Consultation #1: spoke vicki [facility] who agrees to admit the patient EKG Findings - EKG Comments: EKG Findings:: EKG sinus 79 [place] 134 QRS 92 QTc 438 - EKG Results: EKG: interpreted by BIAD Medical Decision Making - Medical Decision Making 53 female to the altered mental status unresponsiveness and syncope will admit for further evaluation and management - Lab Data Result diagrams: 04/29/24 23:32 04/29/24 23:32 Lab Results 04/29/24 04/29/24 04/29/24 Range/Units 23:20 23:30 23:32 WBC 17.1 H (3.8-10.6) k/uL RBC 5.01 (3.80-5.40) m/uL Hgb 13.9 (11.4-16.0) gm/dL Hct 42.7 (34.0-46.0) % MCV 85.2 (80.0-100.0) fL MCH 27.6 (25.0-35.0) pg MCHC 32.4 (31.0-37.0) g/dL RDW 13.6 (11.5-15.5) % Plt Count 333 (150-450) k/uL MPV 8.1 PT (10.0-12.5) sec INR (<1.2) APTT (22.0-30.0) sec D-Dimer (<0.60) mg/L FEU Sodium (137-145) mmol/L Potassium (3.5-5.1) mmol/L Chloride (98-107) mmol/L Carbon Dioxide (22-30) mmol/L Anion Gap mmol/L BUN (7-17) mg/dL Creatinine (0.52-1.04) mg/dL Est GFR (CKD-EPI)AfAm (>60 ml/min/1.73 sqM) Est GFR (CKD-EPI)NonAf (>60 ml/min/1.73 sqM) Glucose (74-99) mg/dL POC Glucose (mg/dL) 141 H (70-110) mg/dL POC Glu Television News Photographer ID Liniarski Rupal Calcium (8.4-10.2) mg/dL Magnesium (1.6-2.3) mg/dL Total Bilirubin (0.2-1.3) mg/dL AST (14-36) U/L ALT (4-34) U/L Alkaline Phosphatase (38-126) U/L Ammonia 17 (<30) umol/L Troponin I (0.000-0.034) ng/mL Total Protein (6.3-8.2) g/dL Albumin (3.5-5.0) g/dL Serum Alcohol mg/dL 04/29/24 04/29/24 04/30/24 Range/Units 23:32 23:32 00:29 WBC (3.8-10.6) k/uL RBC (3.80-5.40) m/uL Hgb (11.4-16.0) gm/dL Hct (34.0-46.0) % MCV (80.0-100.0) fL MCH (25.0-35.0) pg MCHC (31.0-37.0) g/dL RDW (11.5-15.5) % Plt Count (150-450) k/uL MPV PT 10.7 (10.0-12.5) sec INR 1.0 (<1.2) APTT 23.2 (22.0-30.0) sec D-Dimer 0.53 (<0.60) mg/L FEU Sodium 138 (137-145) mmol/L Potassium 3.7 (3.5-5.1) mmol/L Chloride 110 H (98-107) mmol/L Carbon Dioxide 19 L (22-30) mmol/L Anion Gap 9 mmol/L BUN 14 (7-17) mg/dL Creatinine 1.05 H (0.52-1.04) mg/dL Est GFR (CKD-EPI)AfAm 69 (>60 ml/min/1.73 sqM) Est GFR (CKD-EPI)NonAf 60 (>60 ml/min/1.73 sqM) Glucose 140 H (74-99) mg/dL POC Glucose (mg/dL) (70-110) mg/dL POC Glu Television News Photographer ID Calcium 9.9 (8.4-10.2) mg/dL Magnesium 1.9 (1.6-2.3) mg/dL Total Bilirubin 0.7 (0.2-1.3) mg/dL AST 36 (14-36) U/L ALT 29 (4-34) U/L Alkaline Phosphatase 82 (38-126) U/L Ammonia (<30) umol/L Troponin I <0.012 (0.000-0.034) ng/mL Total Protein 7.2 (6.3-8.2) g/dL Albumin 4.3 (3.5-5.0) g/dL Serum Alcohol <10 mg/dL - EKG Data -: EKG Interpreted by Me - Radiology Data Radiology results: report reviewed (CT brain is negative for acute disease), image reviewed Disposition Clinical Impression: Polysubstance abuse, Syncope, Dehydration, Altered mental status Disposition: ADMITTED IP TO THIS [facility] Condition: Fair Is patient prescribed a controlled substance at d/c from ED?: No Referrals: None,Stated [Primary Care Provider] - 1-2 days Time of Disposition: 02:00
[2024-04-29 23:28] LABS: Glucose,Whole Blood 141 mg/dL (70-110)
[2024-04-29] MEDS: SODIUM CHLORIDE 0.9% 1,000 ML IV STA (23:29)
[2024-04-30 00:05] LABS: Basophils # (A) 0.1 k/uL (0-0.2); Basophils % (A) 0 %; Eosinophils # (A) 0.1 k/uL (0-0.7); Eosinophils % (A) 1 %; HCT 42.7 % (34.0-46.0); HGB 13.9 gm/dL (11.4-16.0); Lymphocytes # (A) 5.4 k/uL (1.0-4.8); Lymphocytes % (A) 31 %; MCH 27.6 pg (25.0-35.0); MCHC 32.4 g/dL (31.0-37.0); MCV 85.2 fL (80.0-100.0); Mean Platelet Volume 8.1; Monocytes # (A) 0.7 k/uL (0-1.0); Monocytes % (A) 4 %; Neutrophils # (A) 10.7 k/uL (1.3-7.7); Neutrophils % (A) 62 %; Platelet Count 333 k/uL (150-450); RBC 5.01 m/uL (3.80-5.40); RDW 13.6 % (11.5-15.5); WBC 17.1 k/uL (3.8-10.6)
[2024-04-30 00:15] LABS: ALT 29 U/L (4-34); AST 36 U/L (14-36); African American GFR (CKD) 69 (>60 ml/min/1.73 sqM); Albumin 4.3 g/dL (3.5-5.0); Alcohol <10 mg/dL; Alkaline Phosphatase 82 U/L (38-126); Anion Gap 9 mmol/L; Blood Urea Nitrogen 14 mg/dL (7-17); Calcium 9.9 mg/dL (8.4-10.2); Carbon Dioxide 19 mmol/L (22-30); Chloride 110 mmol/L (98-107); Glucose 140 mg/dL (74-99); Magnesium 1.9 mg/dL (1.6-2.3); Non-African American GFR(CKD) 60 (>60 ml/min/1.73 sqM); Sodium 138 mmol/L (137-145); Total Bilirubin 0.7 mg/dL (0.2-1.3); Total Protein 7.2 g/dL (6.3-8.2)
[2024-04-30] MEDS: NALOXONE 0.4 MG/ML 1 ML VIAL IVP STA (00:19)
[2024-04-30] MEDS: SODIUM CHLORIDE 0.9% 1,000 ML IV ONE (00:21)
[2024-04-30 00:28] LABS: Potassium 3.7 mmol/L (3.5-5.1)
[2024-04-30] MEDS: SODIUM CHLORIDE 0.9% 1,000 ML IV STA (00:55)
[2024-04-30 01:02] LABS: Partial Thromboplastin Time 23.2 sec (22.0-30.0); Prothrombin Time 10.7 sec (10.0-12.5)
[2024-04-30] MEDS ORDERED: NALOXONE 0.4 MG/ML 1 ML VIAL IV PRN (01:48)
[2024-04-30] MEDS ORDERED: ONDANSETRON 4 MG/2 ML VIAL IVP PRN (01:48)
[2024-04-30 02:17] LABS: Appearance,Urine Clear (Clear); Bilirubin,Urine Negative (Negative); Blood,Urine Negative (Negative); Color,Urine Colorless; Glucose,Urine (UA) Negative (Negative); Ketones,Urine Negative (Negative); Leukocyte Esterase,Urine Negative (Negative); Nitrite,Urine Negative (Negative); Protein,Urine Negative (Negative); Specific Gravity,Urine 1.013 (1.001-1.035); Urobilinogen,Urine <2.0 mg/dL (<2.0)
--- NOTE | 2024-04-30 02:59 | CT ---
EXAM: CT Head Without Intravenous Contrast CLINICAL HISTORY: ITS.REASON CT Reason: syncope TECHNIQUE: Axial computed tomography images of the head/brain without intravenous contrast. CTDI is 49.2 mGy and DLP is 1096.4 mGy-cm. This CT exam was performed using one or more of the following dose reduction techniques: automated exposure control, adjustment of the mA and/or kV according to patient size, and/or use of iterative reconstruction technique. COMPARISON: Prior brain MRI from February 06, 2018. FINDINGS: Brain: Unremarkable. No hemorrhage. No significant white matter disease. No edema. Ventricles: Unremarkable. No ventriculomegaly. Bones/joints: Unremarkable. No acute fracture. Soft tissues: Unremarkable. Sinuses: Unremarkable as visualized. No acute sinusitis. Mastoid air cells: Unremarkable as visualized. No mastoid effusion. IMPRESSION: No evidence of acute intracranial pathology.
[2024-04-30 03:07] LABS: Amphetamine Screen,Urine Not Detected (NotDetected); Barbiturate Screen,Urine Not Detected (NotDetected); Benzodiazepines Screen,Urine Not Detected (NotDetected); Cocaine Screen,Urine Detected (NotDetected); Methadone Screen, Urine Not Detected (NotDetected); Opiate Screen,Urine Not Detected (NotDetected); Oxycodone Screen, Urine Not Detected (NotDetected); Phencyclidine Screen,Urine Not Detected (NotDetected); Tricyclic Antidepressant,Urine Not Detected (NotDetected); Urn Cannabinoid Scrn Detected (NotDetected)
[2024-04-30] MEDS: SODIUM CHLORIDE 0.9% 1,000 ML IV SCH (03:13)
[2024-04-30 11:20] VITALS: BP 109/57; PULSE 70; RESP 16
--- NOTE | 2024-04-30 20:40 | HP ---
HISTORY AND PHYSICAL FINAL DIAGNOSES: 1. Syncope. 2. Positive cocaine. HISTORY OF PRESENT ILLNESS: This 53-year-old woman was admitted with syncope, cocaine is positive, but the patient left the hospital against medical advice. Prognosis remained extremely guarded. MMDIANE / TITON: [id number] /
== END 2024-04-30 12:28 | disposition home or self-care (01) ==
LOC: EC 23:12 → 6NMEDSUR 04-30 01:48
PROVIDERS: ADMIT Hospitalist; ATTEND Hospitalist
DX: R55 Syncope and collapse (principal); R41.82 Altered mental status, unspecified; E86.0 Dehydration; F19.10 Other psychoactive substance abuse, uncomplicated; K21.9 Gastro-esophageal reflux disease without esophagitis; F31.9 Bipolar disorder, unspecified; F41.9 Anxiety disorder, unspecified; E07.9 Disorder of thyroid, unspecified; Z53.29 Procedure and treatment not carried out because of patient's decision for other reasons; Z79.899 Other long term (current) drug therapy; Z79.82 Long term (current) use of aspirin; Z79.890 Hormone replacement therapy
CPT/HCPCS: 96361; 96365; 96375; 99285; 36415 ×2; 93005; 85379; 80053; 82140; 83735; 84484 ×2; 85025; 85610; 85730; 81003; 80306; 70450; G0378; G0480; J2310; J0696; 80320

== ENCOUNTER 2024-05-18 08:00 | Emergency (ER) | payer MEDICARE ==
[2024-05-18 08:25] VITALS: RESP 18
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
--- NOTE | 2024-05-18 08:52 | XR ---
EXAMINATION TYPE: XR chest 2V DATE OF EXAM: 05/18/2024 8:46 AM COMPARISON: None. CLINICAL INDICATION: Female, 53 years old with history of cough, TECHNIQUE: XR chest 2V view(s) obtained. FINDINGS: The heart size is normal. The pulmonary vasculature is normal. The lungs are clear. IMPRESSION: 1. No acute pulmonary process. [facility], , 05/18/2024 8:49 AM
[2024-05-18 10:04] VITALS: BP 105/71; PULSE 86; TEMP 98.7
== END 2024-05-18 10:05 | disposition home or self-care (01) ==
LOC: EC 08:00
DX: J06.9 Acute upper respiratory infection, unspecified (principal); B97.89 Other viral agents as the cause of diseases classified elsewhere; Z88.6 Allergy status to analgesic agent
CPT/HCPCS: 71046; 87636; 99285

== ENCOUNTER 2024-05-19 12:31 | Emergency (ER) | payer MEDICARE ==
--- NOTE | 2024-05-19 12:50 | ED ---
Skin/Abscess/FB HPI - General Stated complaint: lump L breast Time Seen by Provider: 05/19/24 12:45 Source: patient, RN notes reviewed Mode of arrival: ambulatory Limitations: no limitations - History of Present Illness Initial comments: This is a 53-year-old female presenting with painful/tender lump in her left breast. Patient states she was at this ER yesterday where she was tested for COVID. States she mentioned the lump and was told she would have oral antibiotics prescribed but were not sent. Endorses history of breast abscess on 1 other occasion. - Related Data Previous Rx's Medication Instructions Recorded Aspirin 325 mg PO DAILY 14 Days #14 tab 04/07/24 Folic Acid 1 mg PO BID 14 Days #28 tab 04/07/24 Gabapentin 600 mg PO BID 14 Days #56 tab 04/07/24 Levothyroxine Sodium [Synthroid] 100 mcg PO DAILY 30 Days #30 tab 04/07/24 Mirtazapine [Remeron] 30 mg PO HS 14 Days #14 tab 04/07/24 Topiramate [Topamax] 25 mg PO QID 14 Days #56 tab 04/07/24 Venlafaxine HCl ER [Effexor Xr] 225 mg PO DAILY 14 Days #42 cap 04/07/24 diphenhydrAMINE [Benadryl] 25 mg PO HS PRN 30 Days #30 cap 04/07/24 Cephalexin [Keflex] 500 mg PO Q6HR #40 cap 05/18/24 Sulfamethox-Tmp 800-160Mg [Bactrim 1 each PO Q12HR #20 tab 05/19/24 Ds] Allergies Allergy/AdvReac Type Severity Reaction Status Date / Time naproxen AdvReac Abdominal Verified 05/19/24 12:42 Pain Review of Systems ROS Statement: Those systems with pertinent positive or pertinent negative responses have been documented in the HPI. ROS Other: All systems not noted in ROS Statement are negative. 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, hx "medically induced seizures", migraines, gout, cervical cancer, hypotension, hiatal hernia, IBS, History of Any Multi-Drug Resistant Organisms: None Reported Past Surgical History: Cholecystectomy, Hysterectomy Past Anesthesia/Blood Transfusion Reactions: No Reported Reaction Past Psychological History: Anxiety, Bipolar, Depression Smoking Status: Never smoker Past Alcohol Use History: None Reported Past Drug Use History: Marijuana - Past Family History Mother Family Medical History: Cancer General Exam Limitations: no limitations General appearance: alert, in no apparent distress Head exam: Present: atraumatic, normocephalic, normal inspection Eye exam: Present: normal appearance, PERRL, EOMI. Absent: scleral icterus, conjunctival injection, periorbital swelling ENT exam: Present: normal exam, mucous membranes moist Neck exam: Present: normal inspection. Absent: tenderness, meningismus, lymphadenopathy Respiratory exam: Present: normal lung sounds bilaterally. Absent: respiratory distress, wheezes, rales, rhonchi, stridor Cardiovascular Exam: Present: regular rate, normal rhythm, normal heart sounds. Absent: systolic murmur, diastolic murmur, rubs, gallop, clicks GI/Abdominal exam: Present: soft, normal bowel sounds. Absent: distended, tenderness, guarding, rebound, rigid Extremities exam: Present: normal inspection, full ROM, normal capillary refill. Absent: tenderness, pedal edema, joint swelling, calf tenderness Back exam: Present: normal inspection Neurological exam: Present: alert, oriented X3, CN II-XII intact Psychiatric exam: Present: normal affect, normal mood Skin exam: Present: warm, dry, intact, normal color, other (Positive left breast subcutaneous cyst/abscess/neoplasm noted in periauricular region at 10 o'clock position with fluctuance and tenderness noted. Mild overlying erythema. Negative discharge, inversion of nipple). Absent: rash Course Vital Signs 05/19/24 05/19/24 05/19/24 12:42 15:46 17:06 Temperature 101.8 F H 98.3 F Pulse Rate 98 96 80 Respiratory 18 16 16 Rate Blood Pressure 111/76 114/69 98/80 O2 Sat by Pulse 100 97 99 Oximetry 05/19/24 18:00 Temperature 98 F Pulse Rate 87 Respiratory 20 Rate Blood Pressure 106/89 O2 Sat by Pulse 98 Oximetry Medical Decision Making - Medical Decision Making Was pt. sent in by a medical professional or institution (, PA, [employer], urgent care, hospital, or intermediate...) When possible be specific @ -[No] Did you speak to anyone other than the patient for history (EMS, parent, family, police, friend...)? What history was obtained from this source @ -[No] Did you review nursing and triage notes (agree or disagree)? Why? @ -[I reviewed and agree with nursing and triage notes] Were old charts reviewed (outside hosp., previous admission, EMS record, old EKG, old radiological studies, urgent care reports/EKG's, intermediate records)? Report findings @ -[No old charts were reviewed] Differential Diagnosis (chest pain, altered mental status, abdominal pain women, abdominal pain men, vaginal bleeding, weakness, fever, dyspnea, syncope, headache, dizziness, GI bleed, back pain, seizure, CVA, palpatations, mental health, musculoskeletal)? @ -Abscess, neoplasm, cellulitis, cyst, lipoma, ductal cyst EKG interpreted by me (3pts min.). @ -Not done X-rays interpreted by me (1pt min.). @ -[None done] CT interpreted by me (1pt min.). @ -[None done] U/S interpreted by me (1pt. min.). @ -[None done] What testing was considered but not performed or refused? (CT, X-rays, U/S, labs)? Why? @ -[None] What meds were considered but not given or refused? Why? @ -[None] Did you discuss the management of the patient with other professionals (professionals i.e. , PA, [employer], lab, RT, psych nurse, neonatal social worker, wool brusher, teacher, grants officer, caser up)? Give summary @ -[No] Was smoking cessation discussed for >3mins.? @ -[No] Was critical care preformed (if so, how long)? @ -[No] Were there social determinants of health that impacted care today? How? (Homelessness, low income, unemployed, alcoholism, drug addiction, transportation, low edu. Level, literacy, decrease access to med. care, custodial, rehab)? @ -Homelessness Was there de-escalation of care discussed even if they declined (Discuss DNR or withdrawal of care, Hospice)? DNR status @ -[No] What co-morbidities impacted this encounter? (DM, HTN, Smoking, COPD, CAD, Cancer, CVA, ARF, Chemo, Hep., AIDS, mental health diagnosis, sleep apnea, morbid obesity)? @ -Anxiety Was patient admitted / discharged? Hospital course, mention meds given and route, prescriptions, significant lab abnormalities, going to OR and other pertinent info. @ -[hospital course] Undiagnosed new problem with uncertain prognosis? @ -[No] Drug Therapy requiring intensive monitoring for toxicity (Heparin, Nitro, Insulin, Cardizem)? @ -[No] Were any procedures done? @ -[No] Diagnosis/symptom? @ -Breast abscess Acute, or Chronic, or Acute on Chronic? @ -Acute Uncomplicated (without systemic symptoms) or Complicated (systemic symptoms)? @ -Uncomplicated Side effects of treatment? @ -[No] Exacerbation, Progression, or Severe Exacerbation? @ -[No] Poses a threat to life or bodily function? How? (Chest pain, [place], [place], pneumonia, PE, COPD, DKA, ARF, appy, cholecystitis, CVA, Diverticulitis, Homicidal, Suicidal, threat to staff... and all critical care pts) @ -[No] Disposition Clinical Impression: Breast abscess Disposition: HOME SELF-CARE Condition: Good Instructions (If sedation given, give patient instructions): Abscess Incision and Drainage (ED) Prescriptions: Sulfamethox-Tmp 800-160Mg [Bactrim Ds] 1 each PO Q12HR #20 tab Is patient prescribed a controlled substance at d/c from ED?: No Referrals: None,Stated [Primary Care Provider] - 1-2 days Time of Disposition: 20:32
[2024-05-19] MEDS: ACETAMINOPHEN TAB 325 MG TAB PO STA (13:09)
[2024-05-19] MEDS: HYDROmorphone 0.5 MG/0.5 ML SYRINGE IM STA (15:50)
[2024-05-19] MEDS: LIDOCAINE 1% INJ 10MG/ML (20 ML MDV) SQ ONE (18:12)
[2024-05-19 18:40] VITALS: TEMP 98
[2024-05-19] MEDS: LORazepam 2 MG/ML INJ IM STA (18:43)
[2024-05-19] MEDS: LORazepam 2 MG/ML INJ IV STA (18:47)
[2024-05-19] MEDS: ACET/COD 300 MG/30 MG STARTER PACK 6 TAB BTL PO STA (20:59)
[2024-05-19 21:02] VITALS: BP 90/55; PULSE 74; RESP 18
--- NOTE | 2024-05-20 08:45 | USB ---
Reason for Exam: Clinical finding. Patient History: Menarche at age 14. First Full-Term at age 18. Hysterectomy at age 42. Other cancer, age 34. Hormonal Contraceptives for 2 years from age 31 until age 33. Maternal aunt had breast cancer, age 58. Risk Values: Jaye 5 year model risk: 1.0%. NCI Lifetime model risk: 6.7%. Prior Study Comparison: 09/05/2012 Bilateral Screening Mammogram, [facility]. 09/17/2012 Bilateral Diagnostic Mammogram, [facility]. 06/30/2014 Bilateral Screening Mammogram, [facility]. Findings: A limited US of palpable are of the left breast, retro-areolar region and axillary tail were reviewed. There is an irregular heterogenous mass with vascularity at the 9:00 position 4 cm from the nipple corresponding to the palpable region. This measures 4.8 x 3.1 x 3.9 cm is highly suggestive for malignancy. Additional workup with mammography to complete the examination is recommended. Overall Assessment: Incomplete: need additional imaging evaluation, BI-RAD 0 Management: Diagnostic Mammogram of both breasts. Diagnostic Breast Ultrasound of the left breast. A clinical breast exam by your physician is recommended on an annual basis and results should be correlated with mammographic findings. This exam should not preclude additional follow-up of suspicious palpable abnormalities. Results were given to the patient verbally at the time of exam. [facility], , 05/19/2024 1:49 PM . Electronically signed and approved by: Glenroy Mcdonnell D.O. Radiologis
== END 2024-05-19 21:20 | disposition home or self-care (01) ==
LOC: EC 12:31
DX: N61.1 Abscess of the breast and nipple (principal); F41.9 Anxiety disorder, unspecified; Z88.6 Allergy status to analgesic agent
CPT/HCPCS: 76642; 99284; 96374; 96375; J2060; J2003; J1171

== ENCOUNTER 2024-05-22 18:40 | Inpatient (IN) | payer MEDICARE ==
--- NOTE | 2024-05-22 19:38 | ED ---
Recheck HPI - General Chief Complaint: Recheck/Abnormal Lab/Rx Stated Complaint: L breast pain Time Seen by Provider: 05/22/24 19:02 Source: patient, RN notes reviewed Mode of arrival: ambulatory Limitations: no limitations - History of Present Illness Initial Comments: This is a 53 year old female who presents to the emergency department for left breast pain. She was evaluated here for this 3 days ago and started on Bactrim. States that pain continues to get worse. She has also noticed more swelling and redness over this area. She did have a breast abscess when she was a teenager and states that symptoms feel similar but worse. She has an appointment with Dr. Yip in 2 days, however she states that she was unable to wait due to the pain. States that she has chills but has not measured any fevers. She does report some nausea and in general feels unwell. - Related Data Previous Rx's Medication Instructions Recorded Aspirin 325 mg PO DAILY 14 Days #14 tab 04/07/24 Folic Acid 1 mg PO BID 14 Days #28 tab 04/07/24 Gabapentin 600 mg PO BID 14 Days #56 tab 04/07/24 Levothyroxine Sodium [Synthroid] 100 mcg PO DAILY 30 Days #30 tab 04/07/24 Mirtazapine [Remeron] 30 mg PO HS 14 Days #14 tab 04/07/24 Topiramate [Topamax] 25 mg PO QID 14 Days #56 tab 04/07/24 Venlafaxine HCl ER [Effexor Xr] 225 mg PO DAILY 14 Days #42 cap 04/07/24 diphenhydrAMINE [Benadryl] 25 mg PO HS PRN 30 Days #30 cap 04/07/24 Cephalexin [Keflex] 500 mg PO Q6HR #40 cap 05/18/24 Sulfamethox-Tmp 800-160Mg [Bactrim 1 each PO Q12HR #20 tab 05/19/24 Ds] Allergies Allergy/AdvReac Type Severity Reaction Status Date / Time naproxen AdvReac Abdominal Verified 05/22/24 18:44 Pain NSAIDS (Non-Steroidal AdvReac Nausea & Verified 05/22/24 20:20 Anti-Inflamma Vomiting Review of Systems ROS Statement: Those systems with pertinent positive or pertinent negative responses have been documented in the HPI. ROS Other: All systems not noted in ROS Statement are negative. Past Medical History Past Medical History: Cancer, GERD/Reflux, Osteoarthritis (OA), Thyroid Disorder Additional Past Medical History / Comment(s): Neuropathy lobo legs and feet, "Arachnoid" 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, hx "medically induced seizures", migraines, gout, cervical cancer, hypotension, hiatal hernia, IBS, History of Any Multi-Drug Resistant Organisms: None Reported Past Surgical History: Cholecystectomy, Hysterectomy Past Anesthesia/Blood Transfusion Reactions: No Reported Reaction Past Psychological History: Anxiety, Bipolar, Depression Smoking Status: Never smoker Past Alcohol Use History: None Reported Past Drug Use History: Marijuana - Past Family History Mother Family Medical History: Cancer General Exam Limitations: no limitations General appearance: alert, in no apparent distress Head exam: Present: atraumatic, normocephalic, normal inspection Respiratory exam: Present: normal lung sounds bilaterally. Absent: respiratory distress, wheezes, rales, rhonchi, stridor Cardiovascular Exam: Present: regular rate, normal rhythm, normal heart sounds. Absent: systolic murmur, diastolic murmur, rubs, gallop, clicks Neurological exam: Present: alert, oriented X3, CN II-XII intact Psychiatric exam: Present: normal affect, normal mood Skin exam: Present: other (Tenderness, swelling, and induration to the left breast with surrounding ecchymosis and erythema) Course Vital Signs 05/22/24 05/22/24 05/22/24 18:42 19:52 21:39 Temperature 99.4 F 100.0 F H 99.6 F Pulse Rate 69 85 83 Respiratory 16 19 18 Rate Blood Pressure 102/64 106/70 115/63 O2 Sat by Pulse 100 99 100 Oximetry 05/22/24 23:31 Temperature 98.8 F Pulse Rate Respiratory Rate Blood Pressure O2 Sat by Pulse Oximetry Medical Decision Making - Medical Decision Making This is a 53-year-old female who presents to the emergency department for left breast pain. Was pt. sent in by a medical professional or institution? @ -No Did you speak to anyone other than the patient for history? @ -No Did you review nursing and triage notes? @ -Yes, and I agree, it is accurate with regards to the patient's symptoms. Were old charts reviewed? @ -Ultrasound of the left breast from 05/19/2024 demonstrating an irregular heterogeneous mass with vascularity highly suggestive for malignancy. Differential Diagnosis? @ -Abscess, cellulitis, tumor, this is not meant to be an all-inclusive list. EKG interpreted by me (3pts min.)? @ -Not obtained X-rays interpreted by me (1pt min.)? @ -Not obtained CT interpreted by me (1pt min.)? @ -Not obtained U/S interpreted by me (1pt. min.)? @ -US of the left breast obtained. My interpretation identifies a complex area with vascularity. What testing was considered but not performed? (CT, X-rays, U/S, labs)? Why? @ -None What meds were considered but not given? Why? @ -None Did you discuss the management of the patient with other professionals? @ -Yes, Dr. Serrano, who accepts the patient for admission. Did you reconcile home meds? @ -No Was smoking cessation discussed for >3mins.? @ -No Was critical care preformed (if so, how long)? @ -No Were there social determinants of health that impacted care today? How? (Homelessness, low income, unemployed, alcoholism, drug addiction, transportation, low edu. Level, literacy, decrease access to med. care, longterm, rehab)? @ -No Was there de-escalation of care discussed even if they declined? (Discuss DNR or withdrawal of care, Hospice)? @ -No What co-morbidities impacted this encounter? (DM, HTN, Smoking, COPD, CAD, Cancer, CVA, Hep., AIDS, mental health diagnosis, sleep apnea, morbid obesity)? @ -None Was patient admitted / discharged? @ -Admitted. Lab work demonstrates leukocytosis with a white blood cell count of 12.3. CRP elevated at 5.4 and ESR 86. Ultrasound of the left breast from 3 days ago was concerning for malignancy. Ultrasound repeated today given the progression in pain and change in appearance. The report advised that there was a complex area of vascularity suggesting infection and a separate complex area with vascularity at the area of stitches also suggestive of infection. The sutures were from her visit 3 days ago when they attempted to drain this area, but were unsuccessful. While malignancy is still a possibility, the appearance with leukocytosis and elevated temperature are more so suggestive of infection. Given that she has already been on antibiotics for 3 days and is having uncontrollable pain, she was admitted to medicine for further management with IV antibiotics. Blood culture obtained and she was started on clindamycin. Consult placed for general surgery and infectious disease. Will keep patient n.p.o. after midnight in the event a surgical intervention is needed. Case discussed with ED attending Dr. Estrada. Undiagnosed new problem with uncertain prognosis? @ -None Drug Therapy requiring intensive monitoring for toxicity (Heparin, Nitro, Insulin, Cardizem)? @ -None Were any procedures done? @ -None Diagnosis/symptom? @ -Breast abscess, failure of outpatient treatment Acute, or Chronic, or Acute on Chronic? @ -Acute Uncomplicated (without systemic symptoms) or Complicated (systemic symptoms)? @ -Complicated Side effects of treatment? @ -None Exacerbation, Progression, or Severe Exacerbation] @ -Not applicable Poses a threat to life or bodily function? @ -Yes, can lead to septic shock and - Lab Data Result diagrams: 05/22/24 19:41 05/22/24 19:41 Lab Results 05/22/24 05/22/24 05/22/24 Range/Units 19:41 19:41 19:41 WBC 12.3 H (3.8-10.6) k/uL RBC 4.62 (3.80-5.40) m/uL Hgb 12.9 (11.4-16.0) gm/dL Hct 38.4 (34.0-46.0) % MCV 83.2 (80.0-100.0) fL MCH 27.9 (25.0-35.0) pg MCHC 33.5 (31.0-37.0) g/dL RDW 13.3 (11.5-15.5) % Plt Count 259 (150-450) k/uL MPV 9.0 Neutrophils % 73 % Lymphocytes % 20 % Monocytes % 4 % Eosinophils % 2 % Basophils % 0 % Neutrophils # 9.0 H (1.3-7.7) k/uL Lymphocytes # 2.5 (1.0-4.8) k/uL Monocytes # 0.4 (0-1.0) k/uL Eosinophils # 0.2 (0-0.7) k/uL Basophils # 0.0 (0-0.2) k/uL ESR 86 H (0-30) mm/Hr Sodium 135 L (137-145) mmol/L Potassium 4.2 (3.5-5.1) mmol/L Chloride 102 (98-107) mmol/L Carbon Dioxide 24 (22-30) mmol/L Anion Gap 9 mmol/L BUN 6 L (7-17) mg/dL Creatinine 1.00 (0.52-1.04) mg/dL Est GFR (CKD-EPI)AfAm 74 (>60 ml/min/1.73 sqM) Est GFR (CKD-EPI)NonAf 64 (>60 ml/min/1.73 sqM) Glucose 113 H (74-99) mg/dL Plasma Lactic Acid Jourdan 1.5 (0.7-2.0) mmol/L Calcium 9.3 (8.4-10.2) mg/dL Total Bilirubin 0.6 (0.2-1.3) mg/dL AST 48 H (14-36) U/L ALT 32 (4-34) U/L Alkaline Phosphatase 86 (38-126) U/L C-Reactive Protein 5.4 H (<1.0) mg/dL Total Protein 7.1 (6.3-8.2) g/dL Albumin 3.9 (3.5-5.0) g/dL - Radiology Data Radiology results: report reviewed, image reviewed Disposition Clinical Impression: Left breast abscess, Failure of outpatient treatment Disposition: ADMITTED IP TO THIS HOSP
[2024-05-22] MEDS: SODIUM CHLORIDE 0.9% 1,000 ML IV STA ×3 (19:40→22:38)
[2024-05-22 19:59] LABS: Basophils % (A) 0 %; Eosinophils # (A) 0.2 k/uL (0-0.7); Eosinophils % (A) 2 %; HCT 38.4 % (34.0-46.0); HGB 12.9 gm/dL (11.4-16.0); Lymphocytes # (A) 2.5 k/uL (1.0-4.8); Lymphocytes % (A) 20 %; MCH 27.9 pg (25.0-35.0); MCHC 33.5 g/dL (31.0-37.0); MCV 83.2 fL (80.0-100.0); Monocytes # (A) 0.4 k/uL (0-1.0); Monocytes % (A) 4 %; Neutrophils % (A) 73 %; Platelet Count 259 k/uL (150-450); RBC 4.62 m/uL (3.80-5.40); RDW 13.3 % (11.5-15.5); WBC 12.3 k/uL (3.8-10.6)
[2024-05-22 20:17] LABS: ALT 32 U/L (4-34); African American GFR (CKD) 74 (>60 ml/min/1.73 sqM); Anion Gap 9 mmol/L; Blood Urea Nitrogen 6 mg/dL (7-17); Calcium 9.3 mg/dL (8.4-10.2); Carbon Dioxide 24 mmol/L (22-30); Chloride 102 mmol/L (98-107); Glucose 113 mg/dL (74-99); Non-African American GFR(CKD) 64 (>60 ml/min/1.73 sqM); Sodium 135 mmol/L (137-145); Total Bilirubin 0.6 mg/dL (0.2-1.3)
[2024-05-22] MEDS: KETOROLAC 15 MG/ML 1 ML VIAL IVP STA (20:19)
[2024-05-22] MEDS: MORPHINE SULFATE 4 MG/ML SYRINGE IVP STA (20:21)
[2024-05-22 20:30] LABS: AST 48 U/L (14-36); Albumin 3.9 g/dL (3.5-5.0); Alkaline Phosphatase 86 U/L (38-126); Potassium 4.2 mmol/L (3.5-5.1); Total Protein 7.1 g/dL (6.3-8.2)
[2024-05-22 20:41] LABS: C Reactive Protein 5.4 mg/dL (<1.0)
[2024-05-22] MEDS: HYDROmorphone 1 MG/ML 1 ML SYRINGE IVP STA (21:45)
[2024-05-22] MEDS ORDERED: NALOXONE 0.4 MG/ML 1 ML VIAL IV PRN (21:46)
[2024-05-22] MEDS ORDERED: ONDANSETRON 4 MG/2 ML VIAL IVP PRN (21:46)
[2024-05-22] MEDS: CLINDAMYCIN 600 MG in DEXTROSE 5% IN WATER 50 ML IVPB STA (21:54)
[2024-05-22] MEDS: ACETAMINOPHEN TAB 500 MG TAB PO STA (22:25)
[2024-05-22] MEDS: SODIUM CHLORIDE 0.9% 500 ML 500 ML IV STA (22:38)
[2024-05-22] MEDS: CLINDAMYCIN 600 MG/50 ML-D5W 600 MG in DEXTROSE/WATER 1 50ML.BAG IVPB SCH (22:49)
[2024-05-22] MEDS ORDERED: diphenhydrAMINE 50 MG/ML 1 ML VIAL IVP STA (23:22)
[2024-05-22] MEDS: diphenhydrAMINE 50 MG/ML 1 ML VIAL IVP STA (23:28)
[2024-05-23 01:52] LABS: Erythrocyte Sedimentation Rate 86 mm/Hr (0-30)
[2024-05-23] MEDS: HYDROmorphone 1 MG/ML 1 ML SYRINGE IVP PRN (05:54)
[2024-05-23] MEDS: ACETAMINOPHEN TAB 325 MG TAB PO PRN (11:01)
--- NOTE | 2024-05-23 11:08 | USB ---
Patient History: Menarche at age 14. First Full-Term at age 18. Hysterectomy at age 42. Other cancer, age 34. Hormonal Contraceptives for 2 years from age 31 until age 33. Maternal aunt had breast cancer, age 58. Risk Values: Jaye 5 year model risk: 1.0%. NCI Lifetime model risk: 6.7%. Prior Study Comparison: 09/05/2012 Bilateral Screening Mammogram, [facility]. 09/17/2012 Bilateral Diagnostic Mammogram, [facility]. 06/30/2014 Bilateral Screening Mammogram, [facility]. Findings: FINDINGS: Scanned left breast at 9:00, 10:00, retroareolar, and left axilla. *Complex area with vascularity seen at 9:00 4 CM FN: 4.7 x 3.8 x 2.3 cm suggesting infection giving the history. *A separate complex area with vascularity seen at area of stitches and extends slightly inferior to the stiches at left breast 10:00 3 CM FN: 2.8 x 3.3 x 1.3 cm suggesting infection giving the history. Overall Assessment: Benign, BI-RAD 2 Management: Diagnostic Mammogram of both breasts. Clinical Management of the left breast. For completeness a outpatient diagnostic mammogram should be performed for this area to ensure resolution upon completion of antibiotics given that patient's last mammography was in 2014 and her system. A clinical breast exam by your physician is recommended on an annual basis and results should be correlated with mammographic findings. This exam should not preclude additional follow-up of suspicious palpable abnormalities. [facility], , 05/22/2024 9:08 PM . Electronically signed and approved by: Stephen Varela DO
[2024-05-23] MEDS: ENOXAPARIN 40 MG/0.4 ML SYRINGE SQ SCH (11:10)
[2024-05-23] MEDS: GABAPENTIN 300 MG CAP PO SCH (11:10)
--- NOTE | 2024-05-23 12:24 | P.HPIM ---
History of Present Illness H&P Date: 05/23/24 Chief Complaint: Left breast abscess I am around referral to Dr. Jonathan Serrano who is unwell Pleasant 53-year-old patient with no family doctor. Patient lives with a friend called Jay. Otherwise does not have a home. Does not smoke or drink alcohol. Patient was here in the ER on May 19. Had undergone a breast ultrasound. Irregular heterogeneous mass with vascularity measuring 4.8 x 3.1 x 3.9 cm highly suggestive for malignancy. Appointment was made to see Dr. Kelli Zavala on May 24. She was discharged on Bactrim. Patient now again presents to the ER as the pain continues to get worse. Increasing swelling redness of the area. Some drainage. Does describe some low-grade fever. Started on IV clindamycin in the ER Review of systems: GEN.: None EYES: None HEENT: None NECK: None RESPIRATORY: None CARDIOVASCULAR: None GASTROINTESTINAL: None GENITOURINARY: None MUSCULOSKELETAL: None LYMPHATICS: None HEMATOLOGICAL: None PSYCHIATRY: A bit tearful about her situation NEUROLOGICAL: None. Social history: Does not have a home. Lives with a friend Jay. On his couch. Denies smoking alcohol. Physical examination: VITAL SIGNS: [99.7, 81, 19, 107 x 54, the 100% room air GENERAL: BMI 29.1, sitting up in bed a bit tearful. EYES: Pupils equal. Conjunctiva yasemin l. HEENT: External appearance of nose and ears normal, oral cavity grossly normal. NECK: JVD not raised; masses not palpable. HEART: First and second heart sounds are normal; no edema. LUNGS: Respiratory rate normal; clear to auscultation. ABDOMEN: Soft, nontender, liver spleen not palpable, no masses palpable. PSYCH: Alert and oriented x3; mood and affect yasemin l. MUSCULOSKELETAL:No Clubbing/cyanosis;muscles-grossly intact NEUROLOGICAL: Cranial nerves grossly intact; no facial asymmetry, power and sensation grossly intact. Left breast: Examined in presence of nurse building services supervisor left breast shows a underlying mass. Inflamed on the top. Tender. INVESTIGATIONS, reviewed in the clinical context: May 22: White count 12.3 hemoglobin 12.9 platelets 259 sodium 135 potassium 4.2 creatinine 1 procalcitonin 0.09 Breast ultrasound: Complex area with vascularity seen 4.7 x 3.8 x 2.3 cm. An additional findings Assessment plan: -Patient may have underlying mass/malignancy. With secondary abscess that is draining. Signs of infection including white count low-grade fever reported and clinically very tender. Patient is due to see Dr. Misael Zavala on May 24. Consultation being placed including to general surgery. IV Unasyn. -Bipolar disorder Consult psychiatry. Patient is on any medications. Care was discussed with patient. Questions answered. Past Medical History Past Medical History: Cancer, GERD/Reflux, Osteoarthritis (OA), Thyroid Disorder Additional Past Medical History / Comment(s): Neuropathy lobo legs and feet, " Arachnoid" 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, hx "medically induced seizures", migraines, gout, cervical cancer, hypotension, hiatal hernia, IBS, History of Any Multi-Drug Resistant Organisms: None Reported Past Surgical History: Cholecystectomy, Hysterectomy Past Anesthesia/Blood Transfusion Reactions: No Reported Reaction Past Psychological History: Anxiety, Bipolar, Depression Smoking Status: Never smoker Past Alcohol Use History: None Reported Past Drug Use History: Marijuana - Past Family History Mother Family Medical History: Cancer Medications and Allergies Home Medications Medication Instructions Recorded Confirmed Type Gabapentin 600 mg PO BID 14 Days #56 tab 04/07/24 05/23/24 Rx Cephalexin [Keflex] 500 mg PO Q6HR #40 cap 05/18/24 05/23/24 Rx Sulfamethox-Tmp 800-160Mg [Bactrim 1 tab PO Q12HR 05/23/24 05/23/24 History Ds] Allergies Allergy/AdvReac Type Severity Reaction Status Date / Time naproxen AdvReac Abdominal Verified 05/23/24 08:12 Pain NSAIDS (Non-Steroidal AdvReac Nausea & Verified 05/23/24 08:12 Anti-Inflamma Vomiting Physical Exam Vitals: Vital Signs Temp Pulse Resp BP Pulse Ox 05/23/24 09:31 98.9 F 68 18 82/52 97 05/23/24 07:47 99.6 F 05/23/24 06:53 99.7 F H 81 19 107/54 100 05/22/24 23:31 98.8 F 05/22/24 21:39 99.6 F 83 18 115/63 100 05/22/24 19:52 100.0 F H 85 19 106/70 99 05/22/24 18:42 99.4 F 69 16 102/64 100 Intake and Output 05/22/24 05/23/24 05/23/24 22:59 06:59 14:59 Other: Weight 81.647 kg Results CBC & Chem 7: 05/22/24 19:41 05/22/24 19:41 Labs: Abnormal Lab Results - Last 24 Hours (Table) 05/22/24 05/22/24 Range/Units 19:41 19:41 WBC 12.3 H (3.8-10.6) k/uL Neutrophils # 9.0 H (1.3-7.7) k/uL ESR 86 H (0-30) mm/Hr Sodium 135 L (137-145) mmol/L BUN 6 L (7-17) mg/dL Glucose 113 H (74-99) mg/dL AST 48 H (14-36) U/L C-Reactive Protein 5.4 H (<1.0) mg/dL
[2024-05-23] MEDS: AMPICILLIN-SULBACTAM 1.5 GM in SODIUM CHLORIDE 0.9% 50 ML IVPB SCH (12:57)
[2024-05-23] MEDS ORDERED: VANCOMYCIN IV PER PHARMACY 1 EACH MISC MISCELLANE PRN (12:58)
[2024-05-23] MEDS ORDERED: AMPICILLIN-SULBACTAM 3 GM in SODIUM CHLORIDE 0.9% 100 ML IVPB SCH (13:00)
[2024-05-23] MEDS: VANCOMYCIN 1,500 MG in SODIUM CHLORIDE 0.9% 500 ML 500 ML IVPB ONE (13:36)
--- NOTE | 2024-05-23 15:20 | P.GSCN ---
History of Present Illness Consult date: 05/23/24 History of present illness: CHIEF COMPLAINT: Left breast pain HISTORY OF PRESENT ILLNESS: This is a 53-year-old female who presented the hospital with left breast pain and swelling. She reports mid April her dog jumped on her and hit the left breast. She has had pain and swelling. There had been some redness. She went to the ER 3 days ago and they did an ultrasound of the left breast that reported 4.8 x 3.1 x 3.9 cm highly suggestive for malignancy. Also at that time she had an I&D in the ER of the left breast possible abscess with sutures placed. Patient returned to the ER due to worsening pain and swelling. She did report a low-grade fever. She does report a prior history of a left breast abscess during high school years. Denies any history of breast cancer. Denies any family history of breast cancer. Patient reports she has had normal mammograms in the past. Patient did not make it to her appointment with Dr. Chuckie Zavala today. She needed to come to the ER due to pain. PAST MEDICAL HISTORY: GERD/Reflux, Osteoarthritis (OA), Thyroid Disorder, Neuropathy lobo legs and feet, "Arachnoid" 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, hx "medically induced seizures", migraines, gout, cervical cancer, hypotension, hiatal hernia, IBS,, anxiety, bipolar, depression PAST SURGICAL HISTORY: Cholecystectomy, hysterectomy MEDICATIONS: See below ALLERGIES: See below SOCIAL HISTORY: No illicit drug use. REVIEW OF SYSTEMS: CONSTITUTIONAL: Denies fever or chills. HEENT: Denies blurred vision, vision changes, or eye pain. Denies hemoptysis CARDIOVASCULAR: Denies chest pain or pressure. RESPIRATORY: No shortness of breath. GASTROINTESTINAL: See HPI for pertinent findings HEMATOLOGIC: Denies bleeding disorders. GENITOURINARY: Denies any blood in urine or increased urinary frequency. SKIN: Denies pruitis. Denies rash. PHYSICAL EXAM: VITAL SIGNS: Reviewed GENERAL: Well-developed in no acute distress. Breast: Left breast with bruising, swelling and tenderness palpation. There are also sutures of the breast at the 1 o'clock position. When breast is palpated blood does pull at the suture site. LABORATORY DATA: WBC 12.3 Hgb 12.9 platelets 259 Sodium 135 potassium 4.2 creatinine 1.0 IMAGING: Breast ultrasound reports complex area with vascularity seen at 9:00 4.7 x 3.8 x 2.3 cm suggesting infection. Separate complex area with vascularity seen at area of stitches and extends slightly inferior to the stitches of the left breast at 10:00 measuring 2.8 x 3.3 x 1.3 cm suggesting infection given the history. ASSESSMENT: 1. Infected left breast hematoma due to injury PLAN: -Sutures were removed at bedside by Dr. Ruffin. Dark blood was expressed from the wound. This is likely breast hematoma due to patient's dog jumping on her. -No surgical intervention planned -Mastectomy bra for support ordered -Continue to monitor -Antibiotics per infectious disease Physician Direct Casting Operator note has been reviewed by physician. Signing provider agrees with the documented findings, assessment, and plan of care. Probable months Past Medical History Past Medical History: Cancer, GERD/Reflux, Osteoarthritis (OA), Thyroid Disorder Additional Past Medical History / Comment(s): Neuropathy lobo legs and feet, "Arachnoid" 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, hx "medically induced seizures", migraines, gout, cervical cancer, hypotension, hiatal hernia, IBS, History of Any Multi-Drug Resistant Organisms: None Reported Past Surgical History: Cholecystectomy, Hysterectomy Past Anesthesia/Blood Transfusion Reactions: No Reported Reaction Past Psychological History: Anxiety, Bipolar, Depression Smoking Status: Never smoker Past Alcohol Use History: None Reported Past Drug Use History: Marijuana - Past Family History Mother Family Medical History: Cancer Medications and Allergies Home Medications Medication Instructions Recorded Confirmed Type Gabapentin 600 mg PO BID 14 Days #56 tab 04/07/24 05/23/24 Rx Cephalexin [Keflex] 500 mg PO Q6HR #40 cap 05/18/24 05/23/24 Rx Sulfamethox-Tmp 800-160Mg [Bactrim 1 tab PO Q12HR 05/23/24 05/23/24 History Ds] Allergies Allergy/AdvReac Type Severity Reaction Status Date / Time naproxen AdvReac Abdominal Verified 05/23/24 08:12 Pain NSAIDS (Non-Steroidal AdvReac Nausea & Verified 05/23/24 08:12 Anti-Inflamma Vomiting Surgical - Exam Vital Signs Temp Pulse Resp BP Pulse Ox 99.4 F 69 16 102/64 100 05/22/24 18:42 05/22/24 18:42 05/22/24 18:42 05/22/24 18:42 05/22/24 18:42 Results - Labs 05/22/24 19:41 05/22/24 19:41 Abnormal Lab Results - Last 24 Hours (Table) 05/22/24 05/22/24 Range/Units 19:41 19:41 WBC 12.3 H (3.8-10.6) k/uL Neutrophils # 9.0 H (1.3-7.7) k/uL ESR 86 H (0-30) mm/Hr Sodium 135 L (137-145) mmol/L BUN 6 L (7-17) mg/dL Glucose 113 H (74-99) mg/dL AST 48 H (14-36) U/L C-Reactive Protein 5.4 H (<1.0) mg/dL Diabetes panel 05/22/24 Range/Units 19:41 Sodium 135 L (137-145) mmol/L Potassium 4.2 (3.5-5.1) mmol/L Chloride 102 (98-107) mmol/L Carbon Dioxide 24 (22-30) mmol/L BUN 6 L (7-17) mg/dL Creatinine 1.00 (0.52-1.04) mg/dL Glucose 113 H (74-99) mg/dL Calcium 9.3 (8.4-10.2) mg/dL AST 48 H (14-36) U/L ALT 32 (4-34) U/L Alkaline Phosphatase 86 (38-126) U/L Total Protein 7.1 (6.3-8.2) g/dL Albumin 3.9 (3.5-5.0) g/dL Calcium panel 05/22/24 Range/Units 19:41 Calcium 9.3 (8.4-10.2) mg/dL Albumin 3.9 (3.5-5.0) g/dL Pituitary panel 05/22/24 Range/Units 19:41 Sodium 135 L (137-145) mmol/L Potassium 4.2 (3.5-5.1) mmol/L Chloride 102 (98-107) mmol/L Carbon Dioxide 24 (22-30) mmol/L BUN 6 L (7-17) mg/dL Creatinine 1.00 (0.52-1.04) mg/dL Glucose 113 H (74-99) mg/dL Calcium 9.3 (8.4-10.2) mg/dL Adrenal panel 05/22/24 Range/Units 19:41 Sodium 135 L (137-145) mmol/L Potassium 4.2 (3.5-5.1) mmol/L Chloride 102 (98-107) mmol/L Carbon Dioxide 24 (22-30) mmol/L BUN 6 L (7-17) mg/dL Creatinine 1.00 (0.52-1.04) mg/dL Glucose 113 H (74-99) mg/dL Calcium 9.3 (8.4-10.2) mg/dL Total Bilirubin 0.6 (0.2-1.3) mg/dL AST 48 H (14-36) U/L ALT 32 (4-34) U/L Alkaline Phosphatase 86 (38-126) U/L Total Protein 7.1 (6.3-8.2) g/dL Albumin 3.9 (3.5-5.0) g/dL
--- NOTE | 2024-05-23 16:39 | P.GSCN ---
History of Present Illness Consult date: 05/23/24 Reason for Consult: Mass/abscess left breast Requesting physician: Valeriy Root History of present illness: Ella is a 53-year-old female seen in consultation for Dr. Abbott regarding the left breast mass/abscess. Send in April a dog jumped on her and hit the left breast. Since then she noted redness/swelling of the left breast. She was seen in the emergency room where they did an ultrasound that reported a 4.8 x 3.1 x 3.9 cm highly suggestive for malignancy lesion. At that time an attempt at an I&D was performed in the emergency room. She states that no purulent material was obtained and several sutures were placed. She states that she went home and had increasing pain and so return to the emergency department. At that time she was seen in consultation by Dr. Cain and the sutures were removed. Bloody discharge was noted. The patient states she had not had a mammogram for many years. She had an ultrasound on 05 22 24 of the left breast this revealed a 4.7 x 3.8 complex area in the breast with the suggestion of this being an abscess. Prior to this on 05-19-2024 she had u ndergone a ultrasound of the left breast which revealed a 4.8 x 3.1 x 3.9 lesion highly suggestive for malignancy. Additional imaging was recommended with a diagnostic mammogram of both breast. Caffeine: 2 L/day has decreased this amount recently chocolate: Occasional Nicotine: Negative Family history: Mother mouth and throat cancer Hormonal history: Menarche 14 M3 age at first 18, did not breast-feed Menopause: Hysterectomy at 41 her ovaries were not removed Past surgical history: Cholecystectomy Hysterectomy Appendectomy Both toenails of her great toes removed D&C Medical history: Depression/anxiety Questionable history of bipolar disease Review of Systems - Constitutional Reports fever - EENT Eyes: denies as per HPI Ears: deny: decreased hearing Ears, nose, mouth and throat: Reports headache - Breasts bilateral: as per HPI - Cardiovascular Denies chest pain, Denies shortness of breath - Respiratory Denies cough, Denies 7 - Gastrointestinal Gastrointestinal Comment(s): IBS - Genitourinary Genitourinary: Denies dysuria, Denies hematuria Menstruation: Reports post hysterectomy - Integumentary Reports pruritus - Neurological Neurologic Comment(s): arachnoid cyst in brain Bilateral legs and feet migraines - Psychiatric Psychiatric Comment(s): possible bipolar Reports anxiety, Reports depression - Hematologic/Lymphatic Denies easy bleeding, Denies easy bruising - Allergic/Immunologic Reports as per HPI Past Medical History Past Medical History: Cancer, GERD/Reflux, Osteoarthritis (OA), Thyroid Disorder Additional Past Medical History / Comment(s): Neuropathy lobo legs and feet, "Arachnoid" 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, hx "medically induced seizures", migraines, gout, cervical cancer, hypotension, hiatal hernia, IBS, History of Any Multi-Drug Resistant Organisms: None Reported Past Surgical History: Cholecystectomy, Hysterectomy Past Anesthesia/Blood Transfusion Reactions: No Reported Reaction Past Psychological History: Anxiety, Bipolar, Depression Smoking Status: Never smoker Past Alcohol Use History: None Reported Past Drug Use History: Marijuana - Past Family History Mother Family Medical History: Cancer Medications and Allergies Home Medications Medication Instructions Recorded Confirmed Type Gabapentin 600 mg PO BID 14 Days #56 tab 04/07/24 05/23/24 Rx Cephalexin [Keflex] 500 mg PO Q6HR #40 cap 05/18/24 05/23/24 Rx Sulfamethox-Tmp 800-160Mg [Bactrim 1 tab PO Q12HR 05/23/24 05/23/24 History Ds] Allergies Allergy/AdvReac Type Severity Reaction Status Date / Time naproxen AdvReac Abdominal Verified 05/23/24 08:12 Pain NSAIDS (Non-Steroidal AdvReac Nausea & Verified 05/23/24 08:12 Anti-Inflamma Vomiting Surgical - Exam Vital Signs Temp Pulse Resp BP Pulse Ox 99.4 F 69 16 102/64 100 05/22/24 18:42 05/22/24 18:42 05/22/24 18:42 05/22/24 18:42 05/22/24 18:42 - General no distress - Eyes normal ocular movement - Neck trachea midline - Respiratory normal respiratory effort - Cardiovascular Rhythm: regular Heart Sounds: normal: S1, S2 - Abdomen Abdomen: soft, non tender, no guarding, no rigid, no rebound - Integumentary erythema left breast, hirstuism - Neurologic no disoriented, no combative - Musculoskeletal sitting on stretcher - Psychiatric oriented to time, oriented to person, oriented to place, speech is normal, memory intact Breast Examination: BRA: 36DDD Inspection: Bilateral grade 3 ptosis, swelling upper aspect of the left breast with a small incision approximately 1 cm in size not actively bleeding Palpation: Right breast: No dominant masses or nodules of concern Right axilla: No adenopathy of concern Left breast: Approximately 8 x 8 cm area of firmness in the upper mid breast this has erythema surrounding this and there is a small incision over the area of the fullness Left axilla: No adenopathy of concern Results Bilateral ultrasound reviewed Ultrasound from 05-19-2024 is suggestive of malignancy where is ultrasound of 05 22 24 is more suggestive of inflammatory process - Labs 05/22/24 19:41 05/22/24 19:41 Abnormal Lab Results - Last 24 Hours (Table) 05/22/24 05/22/24 Range/Units 19:41 19:41 WBC 12.3 H (3.8-10.6) k/uL Neutrophils # 9.0 H (1.3-7.7) k/uL ESR 86 H (0-30) mm/Hr Sodium 135 L (137-145) mmol/L BUN 6 L (7-17) mg/dL Glucose 113 H (74-99) mg/dL AST 48 H (14-36) U/L C-Reactive Protein 5.4 H (<1.0) mg/dL Diabetes panel 05/22/24 Range/Units 19:41 Sodium 135 L (137-145) mmol/L Potassium 4.2 (3.5-5.1) mmol/L Chloride 102 (98-107) mmol/L Carbon Dioxide 24 (22-30) mmol/L BUN 6 L (7-17) mg/dL Creatinine 1.00 (0.52-1.04) mg/dL Glucose 113 H (74-99) mg/dL Calcium 9.3 (8.4-10.2) mg/dL AST 48 H (14-36) U/L ALT 32 (4-34) U/L Alkaline Phosphatase 86 (38-126) U/L Total Protein 7.1 (6.3-8.2) g/dL Albumin 3.9 (3.5-5.0) g/dL Calcium panel 05/22/24 Range/Units 19:41 Calcium 9.3 (8.4-10.2) mg/dL Albumin 3.9 (3.5-5.0) g/dL Pituitary panel 05/22/24 Range/Units 19:41 Sodium 135 L (137-145) mmol/L Potassium 4.2 (3.5-5.1) mmol/L Chloride 102 (98-107) mmol/L Carbon Dioxide 24 (22-30) mmol/L BUN 6 L (7-17) mg/dL Creatinine 1.00 (0.52-1.04) mg/dL Glucose 113 H (74-99) mg/dL Calcium 9.3 (8.4-10.2) mg/dL Adrenal panel 05/22/24 Range/Units 19:41 Sodium 135 L (137-145) mmol/L Potassium 4.2 (3.5-5.1) mmol/L Chloride 102 (98-107) mmol/L Carbon Dioxide 24 (22-30) mmol/L BUN 6 L (7-17) mg/dL Creatinine 1.00 (0.52-1.04) mg/dL Glucose 113 H (74-99) mg/dL Calcium 9.3 (8.4-10.2) mg/dL Total Bilirubin 0.6 (0.2-1.3) mg/dL AST 48 H (14-36) U/L ALT 32 (4-34) U/L Alkaline Phosphatase 86 (38-126) U/L Total Protein 7.1 (6.3-8.2) g/dL Albumin 3.9 (3.5-5.0) g/dL Assessment and Plan Assessment: Impression: Fullness left breast upper mid to outer quadrant. This is approximately 8 x 8 cm in size with erythema in the surrounding area Bipolar/depression/anxiety Abscess versus infected tumor Plan: Admission IV antibiotics Review with radiology to determine method to obtain tissue diagnosis
[2024-05-23] MEDS: AMPICILLIN-SULBACTAM 3 GM in SODIUM CHLORIDE 0.9% 100 ML IVPB SCH (18:13)
[2024-05-24] MEDS: VANCOMYCIN 1,500 MG in SODIUM CHLORIDE 0.9% 500 ML 500 ML IVPB SCH (01:58)
[2024-05-24 06:11] LABS: African American GFR (CKD) 84 (>60 ml/min/1.73 sqM); Non-African American GFR(CKD) 73 (>60 ml/min/1.73 sqM)
--- NOTE | 2024-05-24 09:19 | P.CONS ---
History of Present Illness - Reason for Consult Consult date: 05/23/24 Left breast abscess Requesting physician: Mary Ga - Chief Complaint Left breast pain swelling redness x few days - History of Present Illness Patient is a 53-year-old female with a past medical history significant for osteoarthritis hypothyroidism reflux presenting to the hospital for evaluation of left breast pain swelling and redness patient was initially evaluated in the ER for left breast cellulitis for the patient was advised to Bactrim DS and was referred to Dr. Noguera with the patient has not seen yet now presenting back to the hospital with worsening pain swelling and redness to the left breast area symptoms have been getting worse for the last 4 days patient describing pain to be sharp moderate to severe intensity without radiation with associated swelling redness denies high-grade fever did have some chills patient did have low-grade fever 100 F on presentation to the hospital patient was nontachycardic hypotensive or hypoxic she did have white count of 12.3 creatinine is 1.0 electrolyte has been normal and attempted aspiration was done by the ER physician no cultures she did have a breast ultrasound we did shows complex area with vascularity seen at 9 AM with a measurement of 4.7 X3.8X 2.3 cm patient was started on vancomycin in the hospital infectious disease was consulted for further management of antibiotic therapy Review of Systems Positive point and negatives has been mentioned in the HPI, complete review of systems was performed and all other systems are negative Past Medical History Past Medical History: Cancer, GERD/Reflux, Osteoarthritis (OA), Thyroid Disorder Additional Past Medical History / Comment(s): Neuropathy lobo legs and feet, "Arachnoid" 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, hx "medically induced seizures", migraines, gout, cervical cancer, hypotension, hiatal hernia, IBS, History of Any Multi-Drug Resistant Organisms: None Reported Past Surgical History: Cholecystectomy, Hysterectomy Past Anesthesia/Blood Transfusion Reactions: No Reported Reaction Past Psychological History: Anxiety, Bipolar, Depression Smoking Status: Never smoker Past Alcohol Use History: None Reported Past Drug Use History: Marijuana - Past Family History Mother Family Medical History: Cancer Medications and Allergies Home Medications Medication Instructions Recorded Confirmed Type Gabapentin 600 mg PO BID 14 Days #56 tab 04/07/24 05/23/24 Rx Cephalexin [Keflex] 500 mg PO Q6HR #40 cap 05/18/24 05/23/24 Rx Sulfamethox-Tmp 800-160Mg [Bactrim 1 tab PO Q12HR 05/23/24 05/23/24 History Ds] Allergies Allergy/AdvReac Type Severity Reaction Status Date / Time naproxen AdvReac Abdominal Verified 05/23/24 08:12 Pain NSAIDS (Non-Steroidal AdvReac Nausea & Verified 05/23/24 08:12 Anti-Inflamma Vomiting Physical Exam Vitals: Vital Signs Temp Pulse Resp BP Pulse Ox 05/23/24 10:47 82 18 102/58 97 05/23/24 09:31 98.9 F 68 18 82/52 97 05/23/24 07:47 99.6 F 05/23/24 06:53 99.7 F H 81 19 107/54 100 05/22/24 23:31 98.8 F 05/22/24 21:39 99.6 F 83 18 115/63 100 05/22/24 19:52 100.0 F H 85 19 106/70 99 05/22/24 18:42 99.4 F 69 16 102/64 100 Intake and Output 05/22/24 05/23/24 05/23/24 22:59 06:59 14:59 Other: Weight 81.647 kg GENERAL DESCRIPTION: Middle-aged female lying in bed, no distress. No tachypnea or accessory muscle of respiration use. HEENT: Shows Pallor , no scleral icterus. Oral mucous membrane is dry. NECK: Trachea central, no thyromegaly. LUNGS: Unlabored breathing. Clear to auscultation anteriorly. No wheeze or crackle. HEART: S1, S2, regular rate and rhythm. No loud murmur ABDOMEN: Soft, no tenderness , guarding or rigidity, no organomegaly EXTREMITIES: No edema of feet. SKIN: Left breast on the upper end did have a swelling and redness with some bloodstained drainage on the dressing NEUROLOGICAL: The patient is awake, alert, oriented x3, mood and affect normal. Results CBC & Chem 7: 05/22/24 19:41 05/24/24 05:35 Labs: Abnormal Lab Results - Last 24 Hours (Table) 05/22/24 05/22/24 Range/Units 19:41 19:41 WBC 12.3 H (3.8-10.6) k/uL Neutrophils # 9.0 H (1.3-7.7) k/uL ESR 86 H (0-30) mm/Hr Sodium 135 L (137-145) mmol/L BUN 6 L (7-17) mg/dL Glucose 113 H (74-99) mg/dL AST 48 H (14-36) U/L C-Reactive Protein 5.4 H (<1.0) mg/dL Assessment and Plan (1) Sepsis Current Visit: Yes Status: Acute Code(s): A41.9 - SEPSIS, UNSPECIFIED ORGANISM SNOMED Code(s): 65476197 (2) Failure of outpatient treatment Current Visit: Yes Status: Acute Code(s): Z78.9 - OTHER SPECIFIED HEALTH STATUS SNOMED Code(s): 377144140 (3) Left breast abscess Current Visit: Yes Status: Acute Code(s): N61.1 - ABSCESS OF THE BREAST AND NIPPLE SNOMED Code(s): 72221116 Plan: 1patient presented hospital with sepsis in this patient did have fever elevated white count source is left breast abscess failing outpatient Bactrim DS therapy, will need to cover for both gram-positive as well as gram-negative pathogen while waiting for the culture to finalize 2-await surgical evaluation for drainage of the abscess and deep culture 3-vancomycin pharmacy to dose target trough of 15 while watching kidney f unction and Vanco trough closely and will add Unasyn 3 g every 6 hours We will follow on clinical condition and cultures to further adjust medication if needed Thank you for this consultation we will follow the patient along with you Dictation was produced using [employer] dictation software. please excuse any grammatical, word or spelling errors. Time with Patient: Greater than 30
--- NOTE | 2024-05-24 13:18 | P.PN ---
Subjective Progress Note Date: 05/24/24 SURGICAL PROGRESS NOTE CHIEF COMPLAINT: Left breast hematoma HISTORY OF PRESENT ILLNESS: Surgical service following in regards to patient's left breast hematoma. She did have fevers during the night as high as 101.9. Patient also seen by Dr. Chuckie Zavala who consulted interventional radiology for aspiration and core biopsy of left breast abscess. No new labs for today. Patient seen and examined with Dr. Ruffin PHYSICAL EXAM: VITAL SIGNS: Reviewed. GENERAL: Well-developed in no acute distress. BREAST: Left breast tender with palpation and swelling. She does have bruising noted with mild erythema. Small incision at the 1 o'clock position ASSESSMENT: 1. Infected left breast hematoma 2. Possible left breast mass noted on US PLAN: -Agree with IR consult for biopsy and aspiration of left breast mass/abscess/infected hematoma -Continue antibiotics per ID service -Continue supportive bra -Continue pain management -Continue Tylenol as needed for fever Physician Seat Cover Cutter note has been reviewed by physician. Signing provider agrees with the documented findings, assessment, and plan of care. Objective - Vital Signs Vital signs: Vital Signs Temp 101.6 F H 05/24/24 07:00 Pulse 86 05/24/24 07:00 Resp 16 05/24/24 07:00 BP 100/64 05/24/24 07:00 Pulse Ox 96 05/24/24 07:00 FiO2 Intake & Output 05/23/24 05/24/24 05/24/24 18:59 06:59 18:59 Weight 81.647 kg Other: # Voids 3 - Labs CBC & Chem 7: 05/22/24 19:41 05/24/24 05:35 Labs: Microbiology - Last 24 Hours (Table) 05/22/24 22:35 Blood Culture - Preliminary Blood
[2024-05-24 13:44] VITALS: BMI 29.0
[2024-05-24] MEDS ORDERED: hydrOXYzine HCL 25 MG TAB PO PRN (14:10)
--- NOTE | 2024-05-24 14:18 | P.CN ---
Psychiatric Consult - . Consult date: 05/24/24 Consult:: 05/24/24 14:11 IDENTIFYING DATA: This patient is a 53-year-old female, on disability and homeless REASON FOR REFERRAL: Psychiatry was consulted for Hypolar, tearful HISTORY OF PRESENT ILLNESS: The patient presented to the hospital on 05/22 with left breast pain. Surgery was consulted and she was started on IV antibiotics. Patient seen and evaluated in her room. Of note patient was recently admitted to [facility] from 02/21-02/29/2024 with a diagnosis of depression and cocaine use disorder and discharged to [facility]. Patient states since then she went to stay with her sister and then ended up staying with friends due to the shelters being full. She reports difficulties with her mood because of homelessness and also states losing her emotional support animal back in August which she had for 10 years. Patient was tearful during the encounter. She states last taking her psychotropic medications 1 month ago and that she has not taken them due to her not having a psychiatrist to continue filling this. She reports low energy, anhedonia and hopelessness but denied any sleep or appetite changes. She does report intermittent suicidal ideations however the appear more passive in nature, denying any plans or intent. She states she no longer uses cocaine and was agreeable with restarting psychotropic medications with outpatient follow- up. At this time patient denies any homical ideations, intent or plan. Patient denies any auditory, visual hallucinations and denies any paranoia or delusions. Patients admits to using cannabis roughly once a week. PAST PSYCHIATRIC HISTORY: Patient has a history of MDD, cocaine abuse, cannabis use disorder. Patient most recently was discharged on Effexor XR 225 mg, Remeron 30 mg, Benadryl as needed, Topamax 25 mg 4 times daily for has been nonadherent. She reports roughly 9-10 inpatient hospitalizations, last in [facility] in 2023. Patient denies any psychiatric outpatient follow-up. She reports a history of suicide attempts that led to the [facility] admission last year PAST MEDICAL HISTORY: Hypothyroidism. ALLERGIES: as per EMR. CHEMICAL DEPENDENCY HISTORY: as per HPI. FAMILY PSYCHIATRIC/SUBSTANCE USE HISTORY: She states her son has bipolar disorder and grandfather abused alcohol. Unknown suicide attempt history in the family SOCIAL HISTORY: Patient currently homeless but has been staying at a friend's house. She has 1 son and completed some college. She is on Social Security for mental health. MENTAL STATUS EXAM: General Appearance: Patient appears to be stated age is alert, pleasant, and cooperative. Patient appears to have fair hygiene and grooming wearing hospital gown with fair eye contact. Behavior: Patient is calmly lying in bed without any agitated behavior. She is intermittently tearful Speech: Patient's speech is fluent and nonpressured. Mood/Affect: Patient reports their mood is "depressed", affect is congruent Suicidality/Homicidality: Patient denies having any homicidal ideation intent or plan. She reports having intermittent suicidal ideations, passive in nature and vehemently denies any plan or intent Perceptions: Patient denies any visual hallucinations and denies any auditory hallucinations Though content/process: There is no evidence of any delusional thought content and thought process is linear and logical. Memory and concentration: AOX3, grossly intact for the purposes of this session. Can spell "WORLD" backwards Judgment and insight: Fair IMPRESSIONS: Major depressive disorder, recurrent, moderate History of cocaine use disorder Cannabis use disorder PLAN: -At this time patient DOES NOT meet criteria for inpatient psychiatric admission. -Would recommend the following medication changes/additions: Restart Effexor XR at 75 mg daily for depression, Abilify 5 mg daily as an adjunct, hydroxyzine 50 mg 3 times daily as needed for anxiety -mud car worker to provide patient with outpatient mental health/psychiatry resources for appropriate follow up upon discharge -Communicated plan to patient's nurse -Will continue to follow along -Please contact with any questions.
[2024-05-24] MEDS: ARIPiprazole 5 MG TAB PO SCH (14:52)
[2024-05-24] MEDS: VENLAFAXINE HCL ER 75 MG CAP PO SCH (14:52)
--- NOTE | 2024-05-24 19:45 | P.PN ---
Progress Note - Text Progress Note Date: 05/24/24 Chief Complaint: Left breast abscess I am around referral to Dr. Jonathan Serrano who is unwell Pleasant 53-year-old patient with no family doctor. Patient lives with a friend called Jay. Otherwise does not have a home. Does not smoke or drink alcohol. Patient was here in the ER on May 19. Had undergone a breast ultrasound. Irregular heterogeneous mass with vascularity measuring 4.8 x 3.1 x 3.9 cm highly suggestive for malignancy. Appointment was made to see Dr. Kelli Zavala on May 24. She was discharged on Bactrim. Patient now again presents to the ER as the pain continues to get worse. Increasing swelling redness of the area. Some drainage. Does describe some low-grade fever. Started on IV clindamycin in the ER May 24: Patient was supposed to get interventional radiology with biopsy. Now rescheduled for Monday.Has been spiking fever. Vancomycin was added. Pain is still present. Being followed by surgery, breast surgeon, ID. General surgery feels that breast surgeon Dr. Misael Zavala follow-up. Patient seen by psychiatry diagnosed with major depressive disorder recurrent. Moderate. Patient restarted and affect sore, Abilify hydroxyzine as needed. And for follow-up outpatient with psychiatry.. Strong possibility of underlying malignancy with possibly secondary abscess. Active Medications Acetaminophen (Acetaminophen Tab 325 Mg Tab) 650 mg PO Q6HR PRN PRN Reason: Mild Pain or Fever > 100.5 Last Admin: 05/24/24 08:08 Dose: 650 mg Hydrocodone Bitart/Acetaminophen (Hydrocodone/Apap 5-325mg 1 Each Tab) 1 each PO Q4HR PRN PRN Reason: Moderate Pain (Scale 4 to 6) Aripiprazole (Aripiprazole 5 Mg Tab) 5 mg PO DAILY [facility] Last Admin: 05/24/24 14:52 Dose: 5 mg Enoxaparin Sodium (Enoxaparin 40 Mg/0.4 Ml Syringe) 40 mg SQ DAILY [facility] Last Admin: 05/24/24 08:09 Dose: 40 mg Gabapentin (Gabapentin 300 Mg Cap) 600 mg PO BID [facility] Last Admin: 05/24/24 08:09 Dose: 600 mg Hydromorphone HCl (Hydromorphone 0.5 Mg/0.5 Ml Syringe) 0.5 mg IVP Q3HR PRN PRN Reason: Moderate Pain (Scale 4 to 6) Hydromorphone HCl (Hydromorphone 1 Mg/Ml 1 Ml Syringe) 1 mg IVP Q3HR PRN PRN Reason: Severe Pain (Scale 7 to 10) Last Admin: 05/24/24 12:46 Dose: 1 mg Hydroxyzine HCl (Hydroxyzine Hcl 25 Mg Tab) 50 mg PO TID PRN PRN Reason: Anxiety Vancomycin HCl 1,500 mg/ (Sodium Chloride) 500 mls @ 167 mls/hr IVPB Q12H [facility] Last Admin: 05/24/24 14:50 Dose: 167 mls/hr Ampicillin Sodium/Sulbactam (Sodium 3 gm/ Sodium Chloride) 100 mls @ 200 mls/hr IVPB Q6HR [facility]; Protocol Last Admin: 05/24/24 18:28 Dose: 200 mls/hr Miscellaneous Information (Vancomycin Trough Due 1 Each Misc) 0 each MISCELLANE DIRECTED ONE Stop: 05/25/24 12:01 Naloxone HCl (Naloxone 0.4 Mg/Ml 1 Ml Vial) 0.2 mg IV Q2M PRN PRN Reason: Opioid Reversal Ondansetron HCl (Ondansetron 4 Mg/2 Ml Vial) 4 mg IVP Q8HR PRN PRN Reason: Nausea And Vomiting Venlafaxine HCl (Venlafaxine Hcl Er 75 Mg Cap) 75 mg PO DAILY [facility] Last Admin: 05/24/24 14:52 Dose: 75 mg Social history: Does not have a home. Lives with a friend Jay. On his couch. Denies smoking alcohol. Physical examination: VITAL SIGNS: 101.6, this morning, 94, 16, 98 x 61, 99% room air GENERAL: BMI 29.1, resting bed, tired EYES: Pupils equal. Conjunctiva yasemin l. HEENT: External appearance of nose and ears normal, oral cavity grossly normal. NECK: JVD not raised; masses not palpable. HEART: First and second heart sounds are normal; no edema. LUNGS: Respiratory rate normal; clear to auscultation. ABDOMEN: Soft, nontender, liver spleen not palpable, no masses palpable. PSYCH: Alert and oriented x3; mood and affect a bit low MUSCULOSKELETAL:No Clubbing/cyanosis;muscles-grossly intact Left breast: Mass INVESTIGATIONS, reviewed in the clinical context: May 22: White count 12.3 hemoglobin 12.9 platelets 259 sodium 135 potassium 4.2 creatinine 1 procalcitonin 0.09 Breast ultrasound: Complex area with vascularity seen 4.7 x 3.8 x 2.3 cm. An additional findings Assessment plan: -Patient may have underlying mass/malignancy. Possibly secondary abscess that is draining. Signs of infection including white count low-grade fever reported and clinically very tender. Seen by Dr. Misael Zavala. Left breast deep biopsy now rescheduled by IR for Monday IV Unasyn. Plus IV vancomycin added -Sepsis: New diagnosis IV fluids. Antibiotics. -Major depressive disorder, recurrent, moderate Seen by psychiatry. Effexor XR 75 mg, Atarax as needed, Abilify 5 mg a day added. Discussed with patient Dr. Misael Zavala. Await IR biopsy/drainage on Monday. Continue antibiotics. Past Medical History Past Medical History: Cancer, GERD/Reflux, Osteoarthritis (OA), Thyroid Disorder Additional Past Medical History / Comment(s): Neuropathy lobo legs and feet, "Arachnoid" 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, hx "medically induced seizures", migraines, gout, cervical cancer, hypotension, hiatal hernia, IBS, History of Any Multi-Drug Resistant Organisms: None Reported Past Surgical History: Cholecystectomy, Hysterectomy Past Anesthesia/Blood Transfusion Reactions: No Reported Reaction Past Psychological History: Anxiety, Bipolar, Depression Smoking Status: Never smoker Past Alcohol Use History: None Reported Past Drug Use History: Marijuana
[2024-05-24] MEDS: LACTATED RINGERS 1,000 ML IV SCH (21:41)
--- NOTE | 2024-05-24 23:07 | P.PN ---
Subjective Progress Note Date: 05/24/24 Principal diagnosis: Reason for follow up with sepsis and left breast abscess Patient is a 53-year-old female with a past medical history significant for osteoarthritis hypothyroidism reflux presenting to the hospital for evaluation of left breast pain swelling and redness patient did have ultrasound suggestive of abscess. On today's evaluation that is 05/24/2024, the patient started running a fever last evening with a temperature of 101.6 F this morning patient was complaining of pain to the left breast area although slightly decreased in intensity no nausea vomiting no abdominal pain no diarrhea. Patient did not have CBC done today creatinine 0.90 blood cultures are pending Objective - Vital Signs Vital signs: Vital Signs Temp 97.9 F 05/24/24 15:00 Pulse 94 05/24/24 15:00 Resp 16 05/24/24 15:00 BP 98/61 05/24/24 15:00 Pulse Ox 99 05/24/24 15:00 FiO2 Intake & Output 05/23/24 05/24/24 05/24/24 18:59 06:59 18:59 Weight 81.647 kg 81.647 kg Other: # Voids 3 3 - Exam GENERAL DESCRIPTION: Middle-age female up in bed in no distress RESPIRATORY SYSTEM: Unlabored breathing , decreased breath sounds at bases HEART: S1 S2 regular rate and rhythm , ABDOMEN: Soft , no tenderness EXTREMITIES: No edema feet - Labs CBC & Chem 7: 05/22/24 19:41 05/24/24 05:35 Labs: Microbiology - Last 24 Hours (Table) 05/22/24 22:35 Blood Culture - Preliminary Blood Assessment and Plan (1) Sepsis Current Visit: Yes Status: Acute Code(s): A41.9 - SEPSIS, UNSPECIFIED ORGANISM SNOMED Code(s): 89034271 (2) Failure of outpatient treatment Current Visit: Yes Status: Acute Code(s): Z78.9 - OTHER SPECIFIED HEALTH STATUS SNOMED Code(s): 542734321 (3) Left breast abscess Current Visit: Yes Status: Acute Code(s): N61.1 - ABSCESS OF THE BREAST AND NIPPLE SNOMED Code(s): 78092597 Plan: 1patient presented hospital with sepsis in this patient did have fever elevated white count source is left breast abscess failing outpatient Bactrim DS therapy, will need to cover for both gram-positive as well as gram-negative pathogen while waiting for the culture to finalize 2-patient has been evaluated by general surgery as well as breast surgery and 1 IR to drain this abscess which unfortunately could not be done today 3-patient is currently fever more likely from abscess that has not been drained for now continue with vancomycin pharmacy to dose and Unasyn 3 g every 6 hours Dictation was produced using [employer] dictation software. please excuse any grammatical, word or spelling errors. Time with Patient: Less than 30
[2024-05-25 04:56] LABS: Basophils % (A) 0 %; Eosinophils # (A) 0.2 k/uL (0-0.7); Eosinophils % (A) 3 %; HCT 33.9 % (34.0-46.0); HGB 11.2 gm/dL (11.4-16.0); Lymphocytes # (A) 2.1 k/uL (1.0-4.8); Lymphocytes % (A) 23 %; MCH 27.8 pg (25.0-35.0); MCHC 32.9 g/dL (31.0-37.0); MCV 84.3 fL (80.0-100.0); Mean Platelet Volume 8.2; Monocytes # (A) 0.4 k/uL (0-1.0); Monocytes % (A) 4 %; Neutrophils # (A) 6.1 k/uL (1.3-7.7); Neutrophils % (A) 68 %; Platelet Count 243 k/uL (150-450); RBC 4.02 m/uL (3.80-5.40); RDW 13.2 % (11.5-15.5); WBC 8.9 k/uL (3.8-10.6)
[2024-05-25 05:38] LABS: ALT 23 U/L (4-34); AST 28 U/L (14-36); African American GFR (CKD) >90 (>60 ml/min/1.73 sqM); Albumin 3.1 g/dL (3.5-5.0); Albumin/Globulin Ratio 1.1; Alkaline Phosphatase 112 U/L (38-126); Anion Gap 8 mmol/L; Blood Urea Nitrogen 7 mg/dL (7-17); Calcium 8.9 mg/dL (8.4-10.2); Carbon Dioxide 25 mmol/L (22-30); Chloride 102 mmol/L (98-107); Globulin 2.8 g/dL; Glucose 111 mg/dL (74-99); Non-African American GFR(CKD) >90 (>60 ml/min/1.73 sqM); Potassium 4.5 mmol/L (3.5-5.1); Sodium 135 mmol/L (137-145); Total Bilirubin 0.2 mg/dL (0.2-1.3); Total Protein 5.9 g/dL (6.3-8.2)
[2024-05-25] MEDS: HYDROcodone/APAP 5-325MG 1 EACH TAB PO PRN (08:58)
[2024-05-25 11:56] LABS: African American GFR (CKD) >90 (>60 ml/min/1.73 sqM); Non-African American GFR(CKD) >90 (>60 ml/min/1.73 sqM)
--- NOTE | 2024-05-25 13:21 | P.PN ---
Subjective Progress Note Date: 05/25/24 CHIEF COMPLAINT: Left breast hematoma HISTORY OF PRESENT ILLNESS: The patient is a 53-year-old admitted for acute left breast swelling. She reports drainage yesterday. She reports less pressure today. She is sitting up in the bed. Family member/friend at bedside. No reports of moderate pain. No reports of fevers or chills. ROS: No reports of nausea and vomiting. No bowel movements. No fevers or chills. No new chest pain. No productive sputum PHYSICAL EXAM: VITAL SIGNS: Reviewed CONSTITUTIONAL: Well developed and in no acute distress. EYES: Conjuctivae without sclera icterus. Extraocular movements grossly intact. HEAD, EARS, NOSE, THROAT: Moist buccal mucosa. Head is atraumatic, normocephalic. Hears conversational speech. No nasal drainage. RESPIRATORY: Non-labored respirations and equal bilateral excursions. CARDIOVASCULAR: Palpable 2+ radial pulses. ABDOMEN: Nontender. MUSCULOSKELETAL: No gross deformity of the lower extremities noted. No clubbing. No cyanosis. SKIN: Good skin turgor. Well perfused. NEUROLOGIC: Cranial nerves II through XII grossly intact. No focal or lateralizing signs. PSYCH: Appropriate affect. Alert and oriented to person, place and time. CLINICAL LABS: Reviewed. WBC normal down from 12,000-8000. ASSESSMENT: 1. Left breast swelling/hematoma 2. Leukocytosis PLAN: 1. Per discussion with patient, she is pending a biopsy on Monday in the next 2 days. 2. Clinically she is feeling better. Recommend breast support bra Objective - Vital Signs Vital signs: Vital Signs Temp 98.1 F 05/25/24 07:00 Pulse 79 05/25/24 07:00 Resp 16 05/25/24 07:00 BP 100/60 05/25/24 07:00 Pulse Ox 95 05/25/24 07:00 FiO2 Intake & Output 05/24/24 05/25/24 05/25/24 18:59 06:59 18:59 Weight 81.647 kg Other: # Voids 3 2 - Labs CBC & Chem 7: 05/25/24 04:20 05/25/24 11:16 Labs: Abnormal Lab Results - Last 24 Hours (Table) 05/25/24 05/25/24 Range/Units 04:20 04:20 Hgb 11.2 L (11.4-16.0) gm/dL Hct 33.9 L (34.0-46.0) % Sodium 135 L (137-145) mmol/L Glucose 111 H (74-99) mg/dL Total Protein 5.9 L (6.3-8.2) g/dL Albumin 3.1 L (3.5-5.0) g/dL Microbiology - Last 24 Hours (Table) 05/22/24 22:35 Blood Culture - Preliminary Blood
[2024-05-25] MEDS: VANCOMYCIN TROUGH DUE 1 EACH MISC MISCELLANE ONE (15:38)
--- NOTE | 2024-05-25 16:33 | P.PN ---
Progress Note - Text Progress Note Date: 05/25/24 Chief Complaint: Left breast abscess I am around referral to Dr. Jonathan Serrano who is unwell Pleasant 53-year-old patient with no family doctor. Patient lives with a friend called Jay. Otherwise does not have a home. Does not smoke or drink alcohol. Patient was here in the ER on May 19. Had undergone a breast ultrasound. Irregular heterogeneous mass with vascularity measuring 4.8 x 3.1 x 3.9 cm highly suggestive for malignancy. Appointment was made to see Dr. Kelli Zavala on May 24. She was discharged on Bactrim. Patient now again presents to the ER as the pain continues to get worse. Increasing swelling redness of the area. Some drainage. Does describe some low-grade fever. Started on IV clindamycin in the ER May 24: Patient was supposed to get interventional radiology with biopsy. Now rescheduled for Monday.Has been spiking fever. Vancomycin was added. Pain is still present. Being followed by surgery, breast surgeon, ID. General surgery feels that breast surgeon Dr. Misael Zavala follow-up. Patient seen by psychiatry diagnosed with major depressive disorder recurrent. Moderate. Patient restarted and affect sore, Abilify hydroxyzine as needed. And for follow-up outpatient with psychiatry.. Strong possibility of underlying malignancy with possibly secondary abscess. May 25: Patient was spiking fevers yesterday. Fevers are better today. Decreased pain in the breast. Patient be rescheduled for breast biopsy on Monday by interventional radiology. Continue with IV Unasyn and vancomycin. Surgery following Active Medications Acetaminophen (Acetaminophen Tab 325 Mg Tab) 650 mg PO Q6HR PRN PRN Reason: Mild Pain or Fever > 100.5 Last Admin: 05/24/24 08:08 Dose: 650 mg Hydrocodone Bitart/Acetaminophen (Hydrocodone/Apap 5-325mg 1 Each Tab) 1 each PO Q4HR PRN PRN Reason: Moderate Pain (Scale 4 to 6) Last Admin: 05/25/24 08:58 Dose: 1 each Aripiprazole (Aripiprazole 5 Mg Tab) 5 mg PO DAILY [facility] Last Admin: 05/25/24 08:55 Dose: 5 mg Enoxaparin Sodium (Enoxaparin 40 Mg/0.4 Ml Syringe) 40 mg SQ DAILY [facility] Last Admin: 05/25/24 08:55 Dose: 40 mg Gabapentin (Gabapentin 300 Mg Cap) 600 mg PO BID [facility] Last Admin: 05/25/24 08:55 Dose: 600 mg Hydromorphone HCl (Hydromorphone 0.5 Mg/0.5 Ml Syringe) 0.5 mg IVP Q3HR PRN PRN Reason: Moderate Pain (Scale 4 to 6) Hydromorphone HCl (Hydromorphone 1 Mg/Ml 1 Ml Syringe) 1 mg IVP Q3HR PRN PRN Reason: Severe Pain (Scale 7 to 10) Last Admin: 05/25/24 15:03 Dose: 1 mg Hydroxyzine HCl (Hydroxyzine Hcl 25 Mg Tab) 50 mg PO TID PRN PRN Reason: Anxiety Vancomycin HCl 1,500 mg/ (Sodium Chloride) 500 mls @ 167 mls/hr IVPB Q12H [facility] Last Admin: 05/25/24 15:03 Dose: 167 mls/hr Ampicillin Sodium/Sulbactam (Sodium 3 gm/ Sodium Chloride) 100 mls @ 200 mls/hr IVPB Q6HR [facility]; Protocol Last Admin: 05/25/24 12:50 Dose: 200 mls/hr Lactated Ringer's (Lactated Ringers) 1,000 mls @ 100 mls/hr IV .Q10H [facility] Last Admin: 05/25/24 06:35 Dose: 100 mls/hr Naloxone HCl (Naloxone 0.4 Mg/Ml 1 Ml Vial) 0.2 mg IV Q2M PRN PRN Reason: Opioid Reversal Ondansetron HCl (Ondansetron 4 Mg/2 Ml Vial) 4 mg IVP Q8HR PRN PRN Reason: Nausea And Vomiting Venlafaxine HCl (Venlafaxine Hcl Er 75 Mg Cap) 75 mg PO DAILY [facility] Last Admin: 05/25/24 08:55 Dose: 75 mg Social history: Does not have a home. Lives with a friend Jay. On his couch. Denies smoking alcohol. Physical examination: VITAL SIGNS: Tmax 100.4, 86, 14, 109 x 70, 99% room air GENERAL: BMI 29.1, resting bed, tired EYES: Pupils equal. Conjunctiva yasemin l. HEENT: External appearance of nose and ears normal, oral cavity grossly normal. NECK: JVD not raised; masses not palpable. HEART: First and second heart sounds are normal; no edema. LUNGS: Respiratory rate normal; clear to auscultation. ABDOMEN: Soft, nontender, liver spleen not palpable, no masses palpable. PSYCH: Alert and oriented x3; mood and affect a bit low MUSCULOSKELETAL:No Clubbing/cyanosis;muscles-grossly intact Left breast: Mass INVESTIGATIONS, reviewed in the clinical context: May 25: White count 8.9 hemoglobin 11.2 potassium 4.5 creatinine 0.75 May 22: White count 12.3 hemoglobin 12.9 platelets 259 sodium 135 potassium 4.2 creatinine 1 procalcitonin 0.09 Breast ultrasound: Complex area with vascularity seen 4.7 x 3.8 x 2.3 cm. An additional findings Assessment plan: -Patient may have underlying mass/malignancy. Possibly secondary abscess . Spiked fever. Seen by Dr. Misael Zavala. Left breast deep biopsy now rescheduled by IR for Monday IV Unasyn. Plus IV vancomycin added -Localized left breast cellulitis from underlying secondary abscess IV antibiotics -Sepsis: IV fluids. Antibiotics. -Major depressive disorder, recurrent, moderate Seen by psychiatry. Effexor XR 75 mg, Atarax as needed, Abilify 5 mg a day added. Patient being followed by surgery. Interventional radiology for a biopsy on Monday. Past Medical History Past Medical History: Cancer, GERD/Reflux, Osteoarthritis (OA), Thyroid Disorder Additional Past Medical History / Comment(s): Neuropathy lobo legs and feet, "Arachnoid" 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, hx "medically induced seizures", migraines, gout, cervical cancer, hypotension, hiatal hernia, IBS, History of Any Multi-Drug Resistant Organisms: None Reported Past Surgical History: Cholecystectomy, Hysterectomy Past Anesthesia/Blood Transfusion Reactions: No Reported Reaction Past Psychological History: Anxiety, Bipolar, Depression Smoking Status: Never smoker Past Alcohol Use History: None Reported Past Drug Use History: Marijuana
--- NOTE | 2024-05-25 22:13 | P.PN ---
Subjective Progress Note Date: 05/25/24 Principal diagnosis: Reason for follow up with sepsis and left breast abscess Patient is a 53-year-old female with a past medical history significant for osteoarthritis hypothyroidism reflux presenting to the hospital for evaluation of left breast pain swelling and redness patient did have ultrasound suggestive of abscess. On today's evaluation that is 05/25/2024, patient did not have any fever and denies any chills, patient is breathing comfortably on room air, patient with no chest pain or cough patient did not have any abdominal pain nausea vomiting or any loose stools still complaining of pain to the left breast area. Patient did have a creatinine 0.73 no CBC was done today blood cultures are pending Objective - Vital Signs Vital signs: Vital Signs Temp 98.1 F 05/25/24 07:00 Pulse 79 05/25/24 07:00 Resp 16 05/25/24 07:00 BP 100/60 05/25/24 07:00 Pulse Ox 95 05/25/24 07:00 FiO2 Intake & Output 05/24/24 05/25/24 05/25/24 18:59 06:59 18:59 Weight 81.647 kg Other: # Voids 3 2 - Exam GENERAL DESCRIPTION: Middle-age female up in bed in no distress RESPIRATORY SYSTEM: Unlabored breathing , decreased breath sounds at bases HEART: S1 S2 regular rate and rhythm , ABDOMEN: Soft , no tenderness EXTREMITIES: No edema feet - Labs CBC & Chem 7: 05/25/24 04:20 05/25/24 11:16 Labs: Abnormal Lab Results - Last 24 Hours (Table) 05/25/24 05/25/24 Range/Units 04:20 04:20 Hgb 11.2 L (11.4-16.0) gm/dL Hct 33.9 L (34.0-46.0) % Sodium 135 L (137-145) mmol/L Glucose 111 H (74-99) mg/dL Total Protein 5.9 L (6.3-8.2) g/dL Albumin 3.1 L (3.5-5.0) g/dL Microbiology - Last 24 Hours (Table) 05/22/24 22:35 Blood Culture - Preliminary Blood Assessment and Plan (1) Sepsis Current Visit: Yes Status: Acute Code(s): A41.9 - SEPSIS, UNSPECIFIED ORGANISM SNOMED Code(s): 51598613 (2) Failure of outpatient treatment Current Visit: Yes Status: Acute Code(s): Z78.9 - OTHER SPECIFIED HEALTH STATUS SNOMED Code(s): 430866647 (3) Left breast abscess Current Visit: Yes Status: Acute Code(s): N61.1 - ABSCESS OF THE BREAST AND NIPPLE SNOMED Code(s): 61296537 Plan: 1patient presented hospital with sepsis in this patient did have fever elevated white count source is left breast abscess failing outpatient Bactrim DS therapy, will need to cover for both gram-positive as well as gram-negative pathogen while waiting for the culture to finalize 2-patient has been evaluated by general surgery as well as breast surgery and consulted IR to drain this abscess/which is scheduled for Monday 3-patient did have resolution of the fever for now continue with vancomycin pharmacy to dose and Unasyn 3 g every 6 hours Dictation was produced using [employer] dictation software. please excuse any grammatical, word or spelling errors. Time with Patient: Less than 30
[2024-05-26] MEDS: HYDROmorphone 0.5 MG/0.5 ML SYRINGE IVP PRN (03:25)
[2024-05-26 04:57] LABS: African American GFR (CKD) >90 (>60 ml/min/1.73 sqM); Non-African American GFR(CKD) >90 (>60 ml/min/1.73 sqM)
[2024-05-26 05:17] LABS: Prothrombin Time 10.9 sec (10.0-12.5)
--- NOTE | 2024-05-26 15:12 | P.PN ---
Subjective Progress Note Date: 05/26/24 CHIEF COMPLAINT: Left breast hematoma HISTORY OF PRESENT ILLNESS: The patient is a 53-year-old admitted for acute left breast swelling. She has some drainage from the left breast. No fevers or chills. ROS: No reports of nausea and vomiting. No bowel movements. No new chest pain. No productive sputum PHYSICAL EXAM: VITAL SIGNS: Reviewed CONSTITUTIONAL: Well developed and in no acute distress. EYES: Conjuctivae without sclera icterus. Extraocular movements grossly intact. HEAD, EARS, NOSE, THROAT: Moist buccal mucosa. Head is atraumatic, normocephalic. Hears conversational speech. No nasal drainage. RESPIRATORY: Non-labored respirations and equal bilateral excursions. CARDIOVASCULAR: Palpable 2+ radial pulses. ABDOMEN: Nontender. MUSCULOSKELETAL: No gross deformity of the lower extremities noted. No clubbing. No cyanosis. SKIN: Good skin turgor. Well perfused. NEUROLOGIC: Cranial nerves II through XII grossly intact. No focal or lateralizing signs. PSYCH: Appropriate affect. Alert and oriented to person, place and time. BREAST: Dressing changed at bedside by me. Minimal serosanguineous dressing. Over 5 to 6 cm firmness along the left medial superior inferior breast tissue. CLINICAL LABS: Reviewed. WBC normal. ASSESSMENT: 1. Left breast swelling/hematoma 2. Leukocytosis PLAN: 1. Dressing changed at bedside. At this time patient is pending biopsy per her description. Objective - Vital Signs Vital signs: Vital Signs Temp 98.8 F 05/26/24 14:18 Pulse 77 05/26/24 14:18 Resp 16 05/26/24 14:18 BP 92/56 05/26/24 14:18 Pulse Ox 96 05/26/24 14:18 FiO2 Intake & Output 05/25/24 05/26/24 05/26/24 18:59 06:59 18:59 Intake Total 340 Balance 340 Intake: Oral 340 Other: # Voids 4 3 3 - Labs CBC & Chem 7: 05/25/24 04:20 05/26/24 03:50 Labs: Microbiology - Last 24 Hours (Table) 05/22/24 22:35 Blood Culture - Preliminary Blood
--- NOTE | 2024-05-26 15:20 | P.PN ---
Subjective Progress Note Date: 05/26/24 Principal diagnosis: Reason for follow up with sepsis and left breast abscess Patient is a 53-year-old female with a past medical history significant for osteoarthritis hypothyroidism reflux presenting to the hospital for evaluation of left breast pain swelling and redness patient did have ultrasound suggestive of abscess. On today's evaluation that is 05/26/2024, Patient is afebrile patient is currently on room air and denies having any shortness of breath, the patient denies any chest pain or cough, the patient denies any nausea vomiting did not have any abdominal pain and no diarrhea pain to the left breast is currently controlled. Patient did have creatinine 0.70 Vanco trough is 18.1 blood cultures are pending Objective - Vital Signs Vital signs: Vital Signs Temp 98.3 F 05/26/24 07:00 Pulse 76 05/26/24 07:00 Resp 17 05/26/24 07:00 BP 99/64 05/26/24 07:00 Pulse Ox 97 05/26/24 07:00 FiO2 Intake & Output 05/25/24 05/26/24 05/26/24 18:59 06:59 18:59 Intake Total 340 Balance 340 Intake: Oral 340 Other: # Voids 4 3 - Exam GENERAL DESCRIPTION: Middle-age female up in bed in no distress RESPIRATORY SYSTEM: Unlabored breathing , decreased breath sounds at bases HEART: S1 S2 regular rate and rhythm , ABDOMEN: Soft , no tenderness EXTREMITIES: No edema feet - Labs CBC & Chem 7: 05/25/24 04:20 05/26/24 03:50 Labs: Microbiology - Last 24 Hours (Table) 05/22/24 22:35 Blood Culture - Preliminary Blood Assessment and Plan (1) Sepsis Current Visit: Yes Status: Acute Code(s): A41.9 - SEPSIS, UNSPECIFIED ORGANISM SNOMED Code(s): 50743601 (2) Failure of outpatient treatment Current Visit: Yes Status: Acute Code(s): Z78.9 - OTHER SPECIFIED HEALTH STATUS SNOMED Code(s): 008923239 (3) Left breast abscess Current Visit: Yes Status: Acute Code(s): N61.1 - ABSCESS OF THE BREAST AND NIPPLE SNOMED Code(s): 57090569 Plan: 1patient presented hospital with sepsis in this patient did have fever elevated white count source is left breast abscess failing outpatient Bactrim DS therapy, will need to cover for both gram-positive as well as gram-negative pathogen while waiting for the culture to finalize 2-patient has been evaluated by general surgery as well as breast surgery and consulted IR to drain this abscess/which is scheduled for Monday 3-patient did have resolution of the fever and blood cultures currently pending, patient currently being treated with vancomycin pharmacy to dose and Unasyn 3 g every 6 hours await IR drainage and culture that will determine discharge antibiotics Dictation was produced using [employer] dictation software. please excuse any grammatical, word or spelling errors. Time with Patient: Less than 30
--- NOTE | 2024-05-26 15:51 | P.PN ---
Progress Note - Text Progress Note Date: 05/26/24 Chief Complaint: Left breast infection I am around referral to Dr. Jonathan Serrano who is unwell Pleasant 53-year-old patient with no family doctor. Patient lives with a friend called Jay. Otherwise does not have a home. Does not smoke or drink alcohol. Patient was here in the ER on May 19. Had undergone a breast ultrasound. Irregular heterogeneous mass with vascularity measuring 4.8 x 3.1 x 3.9 cm highly suggestive for malignancy. Appointment was made to see Dr. Kelli Zavala on May 24. She was discharged on Bactrim. Patient now again presents to the ER as the pain continues to get worse. Increasing swelling redness of the area. Some drainage. Does describe some low-grade fever. Started on IV clindamycin in the ER May 24: Patient was supposed to get interventional radiology with biopsy. Now rescheduled for Monday.Has been spiking fever. Vancomycin was added. Pain is still present. Being followed by surgery, breast surgeon, ID. General surgery feels that breast surgeon Dr. Misael Zavala follow-up. Patient seen by psychiatry diagnosed with major depressive disorder recurrent. Moderate. Patient restarted and affect sore, Abilify hydroxyzine as needed. And for follow-up outpatient with psychiatry.. Strong possibility of underlying malignancy with possibly secondary abscess. May 25: Patient was spiking fevers yesterday. Fevers are better today. Decreased pain in the breast. Patient be rescheduled for breast biopsy on Monday by interventional radiology. Continue with IV Unasyn and vancomycin. Surgery following May 26: Patient doing better. Pain is better. Pending biopsy by i erventional radiology tomorrow. Remains on IV Unasyn and IV vancomycin. Oral intake good. Active Medications Acetaminophen (Acetaminophen Tab 325 Mg Tab) 650 mg PO Q6HR PRN PRN Reason: Mild Pain or Fever > 100.5 Last Admin: 05/24/24 08:08 Dose: 650 mg Hydrocodone Bitart/Acetaminophen (Hydrocodone/Apap 5-325mg 1 Each Tab) 1 each PO Q4HR PRN PRN Reason: Moderate Pain (Scale 4 to 6) Last Admin: 05/25/24 17:06 Dose: 1 each Aripiprazole (Aripiprazole 5 Mg Tab) 5 mg PO DAILY [facility] Last Admin: 05/26/24 08:41 Dose: 5 mg Enoxaparin Sodium (Enoxaparin 40 Mg/0.4 Ml Syringe) 40 mg SQ DAILY [facility] Last Admin: 05/25/24 08:55 Dose: 40 mg Gabapentin (Gabapentin 300 Mg Cap) 600 mg PO BID [facility] Last Admin: 05/26/24 08:41 Dose: 600 mg Hydromorphone HCl (Hydromorphone 0.5 Mg/0.5 Ml Syringe) 0.5 mg IVP Q3HR PRN PRN Reason: Moderate Pain (Scale 4 to 6) Last Admin: 05/26/24 13:47 Dose: 0.5 mg Hydromorphone HCl (Hydromorphone 1 Mg/Ml 1 Ml Syringe) 1 mg IVP Q3HR PRN PRN Reason: Severe Pain (Scale 7 to 10) Last Admin: 05/25/24 18:22 Dose: 1 mg Hydroxyzine HCl (Hydroxyzine Hcl 25 Mg Tab) 50 mg PO TID PRN PRN Reason: Anxiety Vancomycin HCl 1,500 mg/ (Sodium Chloride) 500 mls @ 167 mls/hr IVPB Q12H [facility] Last Admin: 05/26/24 13:48 Dose: 167 mls/hr Ampicillin Sodium/Sulbactam (Sodium 3 gm/ Sodium Chloride) 100 mls @ 200 mls/hr IVPB Q6HR [facility]; Protocol Last Admin: 05/26/24 12:08 Dose: 200 mls/hr Lactated Ringer's (Lactated Ringers) 1,000 mls @ 100 mls/hr IV .Q10H [facility] Last Admin: 05/26/24 13:15 Dose: Not Given Naloxone HCl (Naloxone 0.4 Mg/Ml 1 Ml Vial) 0.2 mg IV Q2M PRN PRN Reason: Opioid Reversal Ondansetron HCl (Ondansetron 4 Mg/2 Ml Vial) 4 mg IVP Q8HR PRN PRN Reason: Nausea And Vomiting Venlafaxine HCl (Venlafaxine Hcl Er 75 Mg Cap) 75 mg PO DAILY [facility] Last Admin: 05/26/24 08:41 Dose: 75 mg Social history: Does not have a home. Lives with a friend Jay. On his couch. Denies smoking alcohol. Physical examination: VITAL SIGNS: 98.8, 77, 16, 92 x 56, 96% room air GENERAL: BMI 29.1, resting bed, more comfortable EYES: Pupils equal. Conjunctiva yasemin l. HEENT: External appearance of nose and ears normal, oral cavity grossly normal. NECK: JVD not raised; masses not palpable. HEART: First and second heart sounds are normal; no edema. LUNGS: Respiratory rate normal; clear to auscultation. ABDOMEN: Soft, nontender, liver spleen not palpable, no masses palpable. PSYCH: Alert and oriented x3; mood and affect a bit low MUSCULOSKELETAL:No Clubbing/cyanosis;muscles-grossly intact Left breast: Mass INVESTIGATIONS, reviewed in the clinical context: May 25: White count 8.9 hemoglobin 11.2 potassium 4.5 creatinine 0.75 May 22: White count 12.3 hemoglobin 12.9 platelets 259 sodium 135 potassium 4.2 creatinine 1 procalcitonin 0.09 Breast ultrasound: Complex area with vascularity seen 4.7 x 3.8 x 2.3 cm. An additional findings Assessment plan: -Patient may have underlying mass/malignancy. Possibly secondary abscess/cellulitis. Fevers are down Seen by Dr. Misael Zavala. Left breast deep biopsy now rescheduled by IR for Monday IV Unasyn. IV vancomycin -Localized left breast cellulitis from underlying secondary abscess IV antibiotics -Sepsis: IV fluids. Antibiotics. -Major depressive disorder, recurrent, moderate Seen by psychiatry. Effexor XR 75 mg, Atarax as needed, Abilify 5 mg a day added. No further fevers. Awaiting biopsy tomorrow. Follow with surgical team. Past Medical History Past Medical History: Cancer, GERD/Reflux, Osteoarthritis (OA), Thyroid Disorder Additional Past Medical History / Comment(s): Neuropathy lobo legs and feet, "Arachnoid" 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, hx "medically induced seizures", migraines, gout, cervical cancer, hypotension, hiatal hernia, IBS, History of Any Multi-Drug Resistant Organisms: None Reported Past Surgical History: Cholecystectomy, Hysterectomy Past Anesthesia/Blood Transfusion Reactions: No Reported Reaction Past Psychological History: Anxiety, Bipolar, Depression Smoking Status: Never smoker Past Alcohol Use History: None Reported Past Drug Use History: Marijuana
[2024-05-27 07:50] VITALS: RESP 16; TEMP 98
[2024-05-27 10:51] VITALS: BP 115/71; PULSE 95
--- NOTE | 2024-05-27 11:36 | P.PN ---
Subjective Progress Note Date: 05/27/24 Principal diagnosis: Reason for follow up with sepsis and left breast abscess Patient is a 53-year-old female with a past medical history significant for osteoarthritis hypothyroidism reflux presenting to the hospital for evaluation of left breast pain swelling and redness patient did have ultrasound suggestive of abscess. On today's evaluation that is 05/27/2023, patient has been afebrile, patient is breathing comfortably and is currently on room air, patient denies having any significant cough no chest pain, patient denies nausea vomiting or diarrhea and no abdominal pain still complaining of pain to the hide left message with the patient status post biopsy of the left breast by IR they were not able to aspirate any fluid and there was no pus as reported by the nursing staff. Patient has been cleared for discharge by admitting physician asking for discha rge antibiotics. Patient did not have lab draw today blood culture has been negative so far Objective - Vital Signs Vital signs: Vital Signs Temp 98 F 05/27/24 07:00 Pulse 95 05/27/24 10:25 Resp 16 05/27/24 10:25 BP 115/71 05/27/24 10:25 Pulse Ox 97 05/27/24 10:25 FiO2 Intake & Output 05/26/24 05/27/24 05/27/24 18:59 06:59 18:59 Other: # Voids 3 2 - Exam GENERAL DESCRIPTION: Middle-age female up in bed in no distress RESPIRATORY SYSTEM: Unlabored breathing , decreased breath sounds at bases HEART: S1 S2 regular rate and rhythm , Left breast exam in the presence of the nurse overall redness has decreased no drainage was noticed ABDOMEN: Soft , no tenderness EXTREMITIES: No edema feet - Labs CBC & Chem 7: 05/25/24 04:20 05/26/24 03:50 Labs: Microbiology - Last 24 Hours (Table) 05/22/24 22:35 Blood Culture - Preliminary Blood Assessment and Plan (1) Sepsis Current Visit: Yes Status: Acute Code(s): A41.9 - SEPSIS, UNSPECIFIED ORGANISM SNOMED Code(s): 25363951 (2) Failure of outpatient treatment Current Visit: Yes Status: Acute Code(s): Z78.9 - OTHER SPECIFIED HEALTH STATUS SNOMED Code(s): 404524268 (3) Left breast abscess Current Visit: Yes Status: Acute Code(s): N61.1 - ABSCESS OF THE BREAST AND NIPPLE SNOMED Code(s): 30665526 Plan: 1patient presented hospital with sepsis in this patient did have fever elevated white count source is left breast abscess failing outpatient Bactrim DS therapy, will need to cover for both gram-positive as well as gram-negative pathogen while waiting for the culture to finalize 2-patient has been evaluated by general surgery as well as breast surgery and consulted IR, patient is status post biopsy by IR there was no fluid to aspirate for culture 3-patient did have resolution of the fever and blood cultures has been negative so far, there was no evidence of any abscess as documented by IR and no cultures were done and patient has been cleared for discharge by admitting team we will send a prescription for oral Augmentin and doxycycline and a close outpatient follow-up Dictation was produced using [employer] dictation software. please excuse any grammatical, word or spelling errors. Time with Patient: Less than 30
--- NOTE | 2024-05-27 13:09 | P.PN ---
Subjective Progress Note Date: 05/27/24 SURGICAL PROGRESS NOTE CHIEF COMPLAINT: Left breast hematoma HISTORY OF PRESENT ILLNESS: Surgical service following in regards to patient's left breast hematoma/mass. Patient had biopsy with IR service of the left breast mass today. They attempted a left breast aspiration but no specimen was obtained. Per patient there was not enough fluid. Afebrile. Patient scheduled for discharge today. PHYSICAL EXAM: VITAL SIGNS: Reviewed. GENERAL: Well-developed in no acute distress. BREAST: Left breast with IR bandage in place and clean dry and intact. Mild firmness noted 1 o'clock position of the breast. ASSESSMENT: 1. Infected left breast hematoma 2. Possible left breast mass noted on US PLAN: -Patient can be discharged from surgical standpoint. Recommend that she follows up with Dr. Chuckie Zavala in follow-up on biopsy results -Agree with antibiotics at discharge Physician Sales Counselor note has been reviewed by physician. Signing provider agrees with the documented findings, assessment, and plan of care. Objective - Vital Signs Vital signs: Vital Signs Temp 98 F 05/27/24 07:00 Pulse 95 05/27/24 10:25 Resp 16 05/27/24 10:25 BP 115/71 05/27/24 10:25 Pulse Ox 97 05/27/24 10:25 FiO2 Intake & Output 05/26/24 05/27/24 05/27/24 18:59 06:59 18:59 Weight 81.647 kg Other: # Voids 3 2 - Labs CBC & Chem 7: 05/25/24 04:20 05/26/24 03:50 Labs: Microbiology - Last 24 Hours (Table) 05/22/24 22:35 Blood Culture - Preliminary Blood
--- NOTE | 2024-05-27 16:27 | P.DS ---
Providers Date of admission: 05/22/24 21:47 Expected date of discharge: 05/27/24 Attending physician: Valeriy Root Consults: 05/22/24 21:46 Consult Physician Urgent Consulting Provider: Mauro Ruffin Consult Reason/Comments: Left breast abscess Do you want consulting provider notified?: Yes 05/22/24 22:06 Consult Physician Urgent Consulting Provider: Donna Lizama Consult Reason/Comments: Left breast abscess Do you want consulting provider notified?: Yes 05/23/24 12:13 Consult Physician Routine Consulting Provider: Ivory Yip Consult Reason/Comments: Left breast abscess Do you want consulting provider notified?: Yes 05/23/24 12:24 Consult Physician Routine Consulting Provider: Glenroy Ruiz Consult Reason/Comments: Bipolar, tearful depressed Do you want consulting provider notified?: Yes Primary care physician: Stated None Hospital Course: Chief Complaint: Left breast infection I am around referral to Dr. Jonathan Serrano who is unwell Pleasant 53-year-old patient with no family doctor. Patient lives with a friend called Jay. Otherwise does not have a home. Does not smoke or drink alcohol. Patient was here in the ER on May 19. Had undergone a breast ultrasound. Irregular heterogeneous mass with vascularity measuring 4.8 x 3.1 x 3.9 cm highly suggestive for malignancy. Appointment was made to see Dr. Kelli Zavala on May 24. She was discharged on Bactrim. Patient now again presents to the ER as the pain continues to get worse. Increasing swelling redness of the area. Some drainage. Does describe some low-grade fever. Started on IV clindamycin in the ER May 24: Patient was supposed to get interventional radiology with biopsy. Now rescheduled for Monday.Has been spiking fever. Vancomycin was added. Pain is still present. Being followed by surgery, breast surgeon, ID. General surgery feels that breast surgeon Dr. Misael Zavala follow-up. Patient seen by psychiatry diagnosed with major depressive disorder recurrent. Moderate. Patient restarted and affect sore, Abilify hydroxyzine as needed. And for follow-up outpatient with psychiatry.. Strong possibility of underlying malignancy with possibly secondary abscess. May 25: Patient was spiking fevers yesterday. Fevers are better today. Decreased pain in the breast. Patient be rescheduled for breast biopsy on Monday by interventional radiology. Continue with IV Unasyn and vancomycin. Surgery following May 26: Patient doing better. Pain is better. Pending biopsy by inter ventional radiology tomorrow. Remains on IV Unasyn and IV vancomycin. Oral intake good. May 27: Patient's breast pain well-controlled. Had a biopsy done by IR today. Patient follow-up with Dr. iMsael Zavala in the office. Will also follow-up with [facility]. Augmentin for another 10 days per ID. Naproxen as needed. Patient did confirm he only gets some stomach upset but no allergy per se with naproxen. Discussed how to take the same. Social history: Does not have a home. Lives with a friend Jay. On his couch. Denies smoking alcohol. Physical examination: VITAL SIGNS: 98, 95, 16, 115 x 71, 97% room air GENERAL: BMI 29.1, sitting up, comfortable EYES: Pupils equal. Conjunctiva yasemin l. HEENT: External appearance of nose and ears normal, oral cavity grossly normal. NECK: JVD not raised; masses not palpable. HEART: First and second heart sounds are normal; no edema. LUNGS: Respiratory rate normal; clear to auscultation. ABDOMEN: Soft, nontender, liver spleen not palpable, no masses palpable. PSYCH: Alert and oriented x3; mood and affect a bit low Left breast: Mass INVESTIGATIONS, reviewed in the clinical context: May 25: White count 8.9 hemoglobin 11.2 potassium 4.5 creatinine 0.75 May 22: White count 12.3 hemoglobin 12.9 platelets 259 sodium 135 potassium 4.2 creatinine 1 procalcitonin 0.09 Breast ultrasound: Complex area with vascularity seen 4.7 x 3.8 x 2.3 cm. An additional findings Assessment plan: -Patient may have underlying mass/malignancy. Possibly secondary abscess/cellulitis. Fevers are down Seen by Dr. Misael Zavala. Left breast deep biopsy now rescheduled by IR for Monday IV Unasyn. IV vancomycin Being discharged on Augmentin for 10 days -Localized left breast cellulitis from underlying secondary abscess IV antibiotics Augmentin for 10 days -Left breast mass Biopsy done by interventional radiology today. Follow-up with Dr. Misael bravo in the office -Sepsis: IV fluids. Antibiotics. -Major depressive disorder, recurrent, moderate Seen by psychiatry. Effexor XR 75 mg, Atarax as needed, Abilify 5 mg a day added. Follow-up [facility] Disposition: Discharged Past Medical History Past Medical History: Cancer, GERD/Reflux, Osteoarthritis (OA), Thyroid Disorder Additional Past Medical History / Comment(s): Neuropathy lobo legs and feet, "Arachnoid" 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, hx "medically induced seizures", migraines, gout, cervical cancer, hypotension, hiatal hernia, IBS, History of Any Multi-Drug Resistant Organisms: None Reported Past Surgical History: Cholecystectomy, Hysterectomy Past Anesthesia/Blood Transfusion Reactions: No Reported Reaction Past Psychological History: Anxiety, Bipolar, Depression Smoking Status: Never smoker Past Alcohol Use History: None Reported Past Drug Use History: Marijuana Plan - Discharge Summary Discharge Rx Participant: Yes New Discharge Prescriptions: New ARIPiprazole [Abilify] 5 mg PO DAILY #30 tab Amoxic-Pot Clav 875-125Mg [Augmentin 875-125] 1 tab PO Q12HR 10 Days #20 tab Doxycycline Hyclate [Vibratabs] 100 mg PO BID #20 tab hydrOXYzine HCL [Atarax] 50 mg PO TID PRN #30 tab PRN Reason: Anxiety Venlafaxine HCl ER [Effexor XR] 75 mg PO DAILY #30 cap Naproxen 250 mg PO Q8H PRN #30 tablet PRN Reason: Pain Acetaminophen Tab [Tylenol] 650 mg PO Q6HR PRN tab PRN Reason: Mild Pain Or Fever > 100.5 Continue Gabapentin 600 mg PO BID 14 Days #56 tab Discontinued Cephalexin [Keflex] 500 mg PO Q6HR #40 cap Sulfamethox-Tmp 800-160Mg [Bactrim Ds] 1 tab PO Q12HR Discharge Medication List Gabapentin 600 mg PO BID 14 Days #56 tab 04/07/24 [Rx] ARIPiprazole [Abilify] 5 mg PO DAILY #30 tab 05/27/24 [Rx] Acetaminophen Tab [Tylenol] 650 mg PO Q6HR PRN tab 05/27/24 [Rx] Amoxic-Pot Clav 875-125Mg [Augmentin 875-125] 1 tab PO Q12HR 10 Days #20 tab 05/27/24 [Rx] Doxycycline Hyclate [Vibratabs] 100 mg PO BID #20 tab 05/27/24 [Rx] Naproxen 250 mg PO Q8H PRN #30 tablet 05/27/24 [Rx] Venlafaxine HCl ER [Effexor XR] 75 mg PO DAILY #30 cap 05/27/24 [Rx] hydrOXYzine HCL [Atarax] 50 mg PO TID PRN #30 tab 05/27/24 [Rx] Follow up Appointment(s)/Referral(s): dr ELLIE [Other] - 1 Week Jonathan Serrano MD [STAFF PHYSICIAN] - 1 Week Ivory Yip MD [STAFF PHYSICIAN] - 06/07/24 12:20 pm Discharge/Stand Alone Forms: [facility], Who Do I Call?, Community Resources, Area PCPs Discharge Disposition: HOME SELF-CARE
== END 2024-05-27 13:21 | disposition home or self-care (01) | DRG 872 ==
LOC: EC 18:40 → 6NMEDSUR 21:47 → OBSVTOIN 21:47 → 6NMEDSUR 23:01
PROVIDERS: ADMIT Hospitalist; ATTEND Hospitalist
DX: A41.9 Sepsis, unspecified organism (principal); R45.851 Suicidal ideations; Z59.00 Homelessness unspecified; F31.9 Bipolar disorder, unspecified; K21.9 Gastro-esophageal reflux disease without esophagitis; M19.90 Unspecified osteoarthritis, unspecified site; Z85.41 Personal history of malignant neoplasm of cervix uteri; G43.909 Migraine, unspecified, not intractable, without status migrainosus; G93.0 Cerebral cysts; K44.9 Diaphragmatic hernia without obstruction or gangrene; M10.9 Gout, unspecified; R56.9 Unspecified convulsions; K58.9 Irritable bowel syndrome, unspecified; F14.10 Cocaine abuse, uncomplicated; F12.10 Cannabis abuse, uncomplicated; F41.9 Anxiety disorder, unspecified; N61.1 Abscess of the breast and nipple; G62.9 Polyneuropathy, unspecified; E03.9 Hypothyroidism, unspecified; Z79.890 Hormone replacement therapy; N64.89 Other specified disorders of breast; W54.1XXA Struck by dog, initial encounter; Z79.82 Long term (current) use of aspirin; Z79.899 Other long term (current) drug therapy; Z90.710 Acquired absence of both cervix and uterus; Z91.51 Personal history of suicidal behavior; Z90.49 Acquired absence of other specified parts of digestive tract; Z88.5 Allergy status to narcotic agent; Z71.51 Drug abuse counseling and surveillance of drug abuser; Z88.6 Allergy status to analgesic agent
CPT/HCPCS: 36415; 80053; 80202; 82565; 83605; 84145; 85025; 85610; 85652; 86140; 87040; 88305; 96361; 96365; 96366; 96367; 96372; 96375; 99285

== ENCOUNTER 2024-06-03 16:56 | Emergency (ER) | payer MEDICARE ==
[2024-06-03 17:22] VITALS: TEMP 98.5
[2024-06-03] MEDS: SODIUM CHLORIDE 0.9% 1,000 ML IV STA ×2 (18:06→21:21)
[2024-06-03 18:18] LABS: Basophils % (A) 0 %; Eosinophils # (A) 0.3 k/uL (0-0.7); Eosinophils % (A) 3 %; HCT 37.3 % (34.0-46.0); HGB 11.9 gm/dL (11.4-16.0); Lymphocytes # (A) 2.1 k/uL (1.0-4.8); Lymphocytes % (A) 21 %; MCH 27.9 pg (25.0-35.0); MCV 87.4 fL (80.0-100.0); Mean Platelet Volume 7.9; Monocytes # (A) 0.3 k/uL (0-1.0); Monocytes % (A) 3 %; Neutrophils # (A) 7.1 k/uL (1.3-7.7); Neutrophils % (A) 72 %; Platelet Count 308 k/uL (150-450); RBC 4.27 m/uL (3.80-5.40); RDW 13.8 % (11.5-15.5); WBC 9.8 k/uL (3.8-10.6)
[2024-06-03 18:30] LABS: ALT 24 U/L (4-34); AST 28 U/L (14-36); African American GFR (CKD) 54 (>60 ml/min/1.73 sqM); Albumin 3.5 g/dL (3.5-5.0); Alkaline Phosphatase 84 U/L (38-126); Anion Gap 8 mmol/L; Blood Urea Nitrogen 23 mg/dL (7-17); Calcium 9.1 mg/dL (8.4-10.2); Carbon Dioxide 25 mmol/L (22-30); Chloride 104 mmol/L (98-107); Glucose 93 mg/dL (74-99); Magnesium 1.8 mg/dL (1.6-2.3); Non-African American GFR(CKD) 47 (>60 ml/min/1.73 sqM); Potassium 4.4 mmol/L (3.5-5.1); Sodium 137 mmol/L (137-145); Total Bilirubin 0.3 mg/dL (0.2-1.3); Total Protein 6.2 g/dL (6.3-8.2)
[2024-06-03 18:41] LABS: Partial Thromboplastin Time 23.4 sec (22.0-30.0); Prothrombin Time 11.5 sec (10.0-12.5)
[2024-06-03 18:51] LABS: Influenza A Not Detected (Not Detectd); Influenza B Not Detected (Not Detectd); RSV Not Detected (Not Detectd)
--- NOTE | 2024-06-03 18:52 | XR ---
EXAMINATION TYPE: XR chest 2V DATE OF EXAM: 06/03/2024 6:41 PM COMPARISON: Chest radiographs from 05/18/2024 CLINICAL INDICATION: Female, 53 years old with history of Weakness; [facility] TECHNIQUE: XR chest 2V Frontal and lateral views of the chest. FINDINGS: Lungs/Pleura: There is no evidence of pleural effusion, focal consolidation, or pneumothorax. Pulmonary vascularity: Unremarkable. Heart/mediastinum: Cardiomediastinal silhouette is unremarkable. Musculoskeletal: No acute osseous pathology. IMPRESSION: No acute cardiopulmonary disease/process. [facility], , 06/03/2024 6:49 PM
--- NOTE | 2024-06-03 19:13 | ED ---
Dizziness HPI - General Chief Complaint: Dizziness Stated Complaint: tired and confused Time Seen by Provider: 06/03/24 17:40 Source: patient, RN notes reviewed Mode of arrival: ambulatory Limitations: no limitations - History of Present Illness Initial Comments: This is a 53-year-old female who presents to the emergency department for dizziness and fatigue. Patient was discharged from the hospital a week ago after being admitted for a left breast infection. She had a biopsy done and continues to take Augmentin and doxycycline. She is still waiting for the biopsy results. Today she started feeling very fatigued and rundown. States that she had a syncopal episode while at her son's house. States that she does faint frequently, and this is attributed to her low blood pressure. She does not take anything for her low blood pressure. Denies any chest pain or shortness of breath. However, she does continue to have pain to the left breast and states that [id number] medications are not effective. MD Complaint: dizziness, lightheadedness - Related Data Previous Rx's Medication Instructions Recorded Gabapentin 600 mg PO BID 14 Days #56 tab 04/07/24 ARIPiprazole [Abilify] 5 mg PO DAILY #30 tab 05/27/24 Acetaminophen Tab [Tylenol] 650 mg PO Q6HR PRN tab 05/27/24 Amoxic-Pot Clav 875-125Mg 1 tab PO Q12HR 10 Days #20 tab 05/27/24 [Augmentin 875-125] Doxycycline Hyclate [Vibratabs] 100 mg PO BID #20 tab 05/27/24 Naproxen 250 mg PO Q8H PRN #30 tablet 05/27/24 Venlafaxine HCl ER [Effexor XR] 75 mg PO DAILY #30 cap 05/27/24 hydrOXYzine HCL [Atarax] 50 mg PO TID PRN #30 tab 05/27/24 HYDROcodone/APAP 5-325MG [[place] 1 tab PO Q6HR PRN 3 Days #12 tab 06/03/24 5-325] Allergies Allergy/AdvReac Type Severity Reaction Status Date / Time No Known Allergies Allergy Verified 06/03/24 17:39 Review of Systems ROS Statement: Those systems with pertinent positive or pertinent negative responses have been documented in the HPI. ROS Other: All systems not noted in ROS Statement are negative. Past Medical History Past Medical History: Cancer, GERD/Reflux, Osteoarthritis (OA), Thyroid Disorder Additional Past Medical History / Comment(s): Neuropathy lobo legs and feet, "Arachnoid" 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, hx "medically induced seizures", migraines, gout, cervical cancer, hypotension, hiatal hernia, IBS, History of Any Multi-Drug Resistant Organisms: None Reported Past Surgical History: Cholecystectomy, Hysterectomy Additional Past Surgical History / Comment(s): left breast biopsy, Past Anesthesia/Blood Transfusion Reactions: No Reported Reaction Past Psychological History: Anxiety, Bipolar, Depression Smoking Status: Never smoker Past Alcohol Use History: None Reported Past Drug Use History: Marijuana - Past Family History Mother Family Medical History: Cancer General Exam Limitations: no limitations General appearance: alert, in no apparent distress Head exam: Present: atraumatic, normocephalic, normal inspection Eye exam: Present: normal appearance, PERRL, EOMI. Absent: scleral icterus, conjunctival injection, periorbital swelling Respiratory exam: Present: normal lung sounds bilaterally. Absent: respiratory distress, wheezes, rales, rhonchi, stridor Cardiovascular Exam: Present: regular rate, normal rhythm, normal heart sounds. Absent: systolic murmur, diastolic murmur, rubs, gallop, clicks Neurological exam: Present: alert, oriented X3, CN II-XII intact Expanded Cerebellar function: Finger to Nose: Normal, Heel to Jimenez: Normal, Romberg: Normal Upper motor neuron: Pronator Drift: Normal Motor strength exam: RUE: 5, LUE: 5, RLE: 5, LLE: 5 Psychiatric exam: Present: normal affect, normal mood Skin exam: Present: warm, dry, intact, normal color. Absent: rash Course Vital Signs 06/03/24 06/03/24 06/03/24 17:17 17:46 20:45 Temperature 98.5 F Pulse Rate 88 72 54 L Respiratory 18 16 18 Rate Blood Pressure 81/58 90/66 103/71 O2 Sat by Pulse 97 97 Oximetry 06/03/24 23:00 Temperature Pulse Rate 81 Respiratory 18 Rate Blood Pressure 97/76 O2 Sat by Pulse 97 Oximetry Medical Decision Making - Medical Decision Making This is a 53 year old female who presents to the emergency department for weakness. Was pt. sent in by a medical professional or institution? @ -No Did you speak to anyone other than the patient for history? @ -No Did you review nursing and triage notes? @ -Yes, and I agree, it is accurate with regards to the patient's symptoms. Were old charts reviewed? @ -No Differential Diagnosis? @ -Differential Weakness: Hypoglycemia, shock, sepsis, hyponatremia, anemia, infection, [place], ETOH, adverse medicine reaction, overdose, stroke, this is not meant to be an all-inclusive list. EKG interpreted by me (3pts min.)? @ -EKG interpreted by me demonstrating the following: Sinus rhythm. Ventricular rate 75 bpm, CT interval 157 ms, QRS duration 94 ms, QTc 433 ms. X-rays interpreted by me (1pt min.)? @ -Chest x-ray obtained, my interpretation identifies no localized consolidations or infiltrates. CT interpreted by me (1pt min.)? @ -CTA of the chest obtained. My interpretation identifies no evidence of a pulmonary embolus. U/S interpreted by me (1pt. min.)? @ -Not obtained What testing was considered but not performed? (CT, X-rays, U/S, labs)? Why? @ -None What meds were considered but not given? Why? @ -None Did you discuss the management of the patient with other professionals? @ -No Did you reconcile home meds? @ -No Was smoking cessation discussed for >3mins.? @ -No Was critical care preformed (if so, how long)? @ -No Were there social determinants of health that impacted care today? How? (Homelessness, low income, unemployed, alcoholism, drug addiction, transportation, low edu. Level, literacy, decrease access to med. care, [facility], rehab)? @ -No Was there de-escalation of care discussed even if they declined? (Discuss DNR or withdrawal of care, Hospice)? @ -No What co-morbidities impacted this encounter? (DM, HTN, Smoking, COPD, CAD, Cancer, CVA, Hep., AIDS, mental health diagnosis, sleep apnea, morbid obesity)? @ -None Was patient admitted / discharged? @ -Discharged. Lab work demonstrates signs of dehydration and an elevated D- dimer of 1.05. COVID, influenza, and RSV testing negative. Urinalysis is contaminated but otherwise not suggestive of infection. Chest x-ray obtained re vealing no acute process. CTA of the chest reveals no evidence of a pulmonary embolus or other acute findings. She was given 2 L of IV fluids in the emergency department and her pain was managed as well. Her blood pressure did remain on the lower end, which she states is normal for her. She was given a refill on pain medication for the breast and she has a follow-up with Dr. Susie Zavala this week. Advised she needs to follow-up with her PCP as well regarding the low blood pressure. Patient discharged home in stable condition. Case discussed with ED attending Dr. Caicedo. Return precautions reviewed in depth, the patient is instructed to return to the emergency department with any new, worsening, or concerning symptoms. Patient verbalized understanding. Undiagnosed new problem with uncertain prognosis? @ -None Drug Therapy requiring intensive monitoring for toxicity (Heparin, Nitro, Insulin, Cardizem)? @ -None Were any procedures done? @ -None Diagnosis/symptom? @ -Weakness, dizziness, dehydration Acute, or Chronic, or Acute on Chronic? @ -Acute Uncomplicated (without systemic symptoms) or Complicated (systemic symptoms)? @ -Uncomplicated Side effects of treatment? @ -None Exacerbation, Progression, or Severe Exacerbation] @ -Not applicable Poses a threat to life or bodily function? @ -Unlikely - Lab Data Result diagrams: 06/03/24 18:05 06/03/24 18:05 Lab Results 06/03/24 06/03/24 06/03/24 Range/Units 18:05 18:05 18:05 WBC 9.8 (3.8-10.6) k/uL RBC 4.27 (3.80-5.40) m/uL Hgb 11.9 (11.4-16.0) gm/dL Hct 37.3 (34.0-46.0) % MCV 87.4 (80.0-100.0) fL MCH 27.9 (25.0-35.0) pg MCHC 32.0 (31.0-37.0) g/dL RDW 13.8 (11.5-15.5) % Plt Count 308 (150-450) k/uL MPV 7.9 Neutrophils % 72 % Lymphocytes % 21 % Monocytes % 3 % Eosinophils % 3 % Basophils % 0 % Neutrophils # 7.1 (1.3-7.7) k/uL Lymphocytes # 2.1 (1.0-4.8) k/uL Monocytes # 0.3 (0-1.0) k/uL Eosinophils # 0.3 (0-0.7) k/uL Basophils # 0.0 (0-0.2) k/uL PT 11.5 (10.0-12.5) sec INR 1.0 (<1.2) APTT 23.4 (22.0-30.0) sec D-Dimer 1.05 H (<0.60) mg/L FEU Sodium 137 (137-145) mmol/L Potassium 4.4 (3.5-5.1) mmol/L Chloride 104 (98-107) mmol/L Carbon Dioxide 25 (22-30) mmol/L Anion Gap 8 mmol/L BUN 23 H (7-17) mg/dL Creatinine 1.29 H (0.52-1.04) mg/dL Est GFR (CKD-EPI)AfAm 54 (>60 ml/min/1.73 sqM) Est GFR (CKD-EPI)NonAf 47 (>60 ml/min/1.73 sqM) Glucose 93 (74-99) mg/dL Plasma Lactic Acid Jourdan (0.7-2.0) mmol/L Calcium 9.1 (8.4-10.2) mg/dL Magnesium 1.8 (1.6-2.3) mg/dL Total Bilirubin 0.3 (0.2-1.3) mg/dL AST 28 (14-36) U/L ALT 24 (4-34) U/L Alkaline Phosphatase 84 (38-126) U/L Troponin I (0.000-0.034) ng/mL Total Protein 6.2 L (6.3-8.2) g/dL Albumin 3.5 (3.5-5.0) g/dL Urine Color Urine Appearance (Clear) Urine pH (5.0-8.0) Ur Specific [place] (1.001-1.035) Urine Protein (Negative) Urine Glucose (UA) (Negative) Urine Ketones (Negative) Urine Blood (Negative) Urine Nitrite (Negative) Urine Bilirubin (Negative) Urine Urobilinogen (<2.0) mg/dL Ur Leukocyte Esterase (Negative) Urine RBC (0-5) /hpf Urine WBC (0-5) /hpf Ur Squamous Epith Cells (0-4) /hpf Hyaline Casts (0-2) /lpf Urine Mucus (None) /hpf Influenza Type A (PCR) (Not Detectd) Influenza Type B (PCR) (Not Detectd) RSV (PCR) (Not Detectd) SARS-CoV-2 (PCR) (Not Detectd) 06/03/24 06/03/24 06/03/24 Range/Units 18:05 18:05 18:05 WBC (3.8-10.6) k/uL RBC (3.80-5.40) m/uL Hgb (11.4-16.0) gm/dL Hct (34.0-46.0) % MCV (80.0-100.0) fL MCH (25.0-35.0) pg MCHC (31.0-37.0) g/dL RDW (11.5-15.5) % Plt Count (150-450) k/uL MPV Neutrophils % % Lymphocytes % % Monocytes % % Eosinophils % % Basophils % % Neutrophils # (1.3-7.7) k/uL Lymphocytes # (1.0-4.8) k/uL Monocytes # (0-1.0) k/uL Eosinophils # (0-0.7) k/uL Basophils # (0-0.2) k/uL PT (10.0-12.5) sec INR (<1.2) APTT (22.0-30.0) sec D-Dimer (<0.60) mg/L FEU Sodium (137-145) mmol/L Potassium (3.5-5.1) mmol/L Chloride (98-107) mmol/L Carbon Dioxide (22-30) mmol/L Anion Gap mmol/L BUN (7-17) mg/dL Creatinine (0.52-1.04) mg/dL Est GFR (CKD-EPI)AfAm (>60 ml/min/1.73 sqM) Est GFR (CKD-EPI)NonAf (>60 ml/min/1.73 sqM) Glucose (74-99) mg/dL Plasma Lactic Acid Jourdan 1.4 (0.7-2.0) mmol/L Calcium (8.4-10.2) mg/dL Magnesium (1.6-2.3) mg/dL Total Bilirubin (0.2-1.3) mg/dL AST (14-36) U/L ALT (4-34) U/L Alkaline Phosphatase (38-126) U/L Troponin I <0.012 (0.000-0.034) ng/mL Total Protein (6.3-8.2) g/dL Albumin (3.5-5.0) g/dL Urine Color Urine Appearance (Clear) Urine pH (5.0-8.0) Ur Specific [place] (1.001-1.035) Urine Protein (Negative) Urine Glucose (UA) (Negative) Urine Ketones (Negative) Urine Blood (Negative) Urine Nitrite (Negative) Urine Bilirubin (Negative) Urine Urobilinogen (<2.0) mg/dL Ur Leukocyte Esterase (Negative) Urine RBC (0-5) /hpf Urine WBC (0-5) /hpf Ur Squamous Epith Cells (0-4) /hpf Hyaline Casts (0-2) /lpf Urine Mucus (None) /hpf Influenza Type A (PCR) Not Detected (Not Detectd) Influenza Type B (PCR) Not Detected (Not Detectd) RSV (PCR) Not Detected (Not Detectd) SARS-CoV-2 (PCR) Not Detected (Not Detectd) 06/03/24 Range/Units 20:56 WBC (3.8-10.6) k/uL RBC (3.80-5.40) m/uL Hgb (11.4-16.0) gm/dL Hct (34.0-46.0) % MCV (80.0-100.0) fL MCH (25.0-35.0) pg MCHC (31.0-37.0) g/dL RDW (11.5-15.5) % Plt Count (150-450) k/uL MPV Neutrophils % % Lymphocytes % % Monocytes % % Eosinophils % % Basophils % % Neutrophils # (1.3-7.7) k/uL Lymphocytes # (1.0-4.8) k/uL Monocytes # (0-1.0) k/uL Eosinophils # (0-0.7) k/uL Basophils # (0-0.2) k/uL PT (10.0-12.5) sec INR (<1.2) APTT (22.0-30.0) sec D-Dimer (<0.60) mg/L FEU Sodium (137-145) mmol/L Potassium (3.5-5.1) mmol/L Chloride (98-107) mmol/L Carbon Dioxide (22-30) mmol/L Anion Gap mmol/L BUN (7-17) mg/dL Creatinine (0.52-1.04) mg/dL Est GFR (CKD-EPI)AfAm (>60 ml/min/1.73 sqM) Est GFR (CKD-EPI)NonAf (>60 ml/min/1.73 sqM) Glucose (74-99) mg/dL Plasma Lactic Acid Jourdan (0.7-2.0) mmol/L Calcium (8.4-10.2) mg/dL Magnesium (1.6-2.3) mg/dL Total Bilirubin (0.2-1.3) mg/dL AST (14-36) U/L ALT (4-34) U/L Alkaline Phosphatase (38-126) U/L Troponin I (0.000-0.034) ng/mL Total Protein (6.3-8.2) g/dL Albumin (3.5-5.0) g/dL Urine Color Colorless Urine Appearance Cloudy H (Clear) Urine pH 5.5 (5.0-8.0) Ur Specific [place] 1.024 (1.001-1.035) Urine Protein Negative (Negative) Urine Glucose (UA) Negative (Negative) Urine Ketones Negative (Negative) Urine Blood Negative (Negative) Urine Nitrite Negative (Negative) Urine Bilirubin Negative (Negative) Urine Urobilinogen <2.0 (<2.0) mg/dL Ur Leukocyte Esterase Large H (Negative) Urine RBC 9 H (0-5) /hpf Urine WBC 10 H (0-5) /hpf Ur Squamous Epith Cells 20 H (0-4) /hpf Hyaline Casts 14 H (0-2) /lpf Urine Mucus Rare H (None) /hpf Influenza Type A (PCR) (Not Detectd) Influenza Type B (PCR) (Not Detectd) RSV (PCR) (Not Detectd) SARS-CoV-2 (PCR) (Not Detectd) - Radiology Data Radiology results: report reviewed, image reviewed Disposition Clinical Impression: Dehydration, Dizziness, S/P breast biopsy, left Disposition: HOME SELF-CARE Instructions (If sedation given, give patient instructions): Dehydration (ED), Dizziness (ED) Additional Instructions: Return to the emergency department with any new, worsening, or concerning symp toms. Take the [place] sparingly when your pain is the most severe. Make sure you drink plenty of fluids and continue taking your antibiotics as prescribed. Follow up with your primary care provider in 1-2 days. Prescriptions: HYDROcodone/APAP 5-325MG [[place] 5-325] 1 tab PO Q6HR PRN 3 Days #12 tab PRN Reason: Pain Is patient prescribed a controlled substance at d/c from ED?: Yes When asked, does pt state using other controlled substances?: No If prescribed controlled substance>3 days was MAPS reviewed?: Prescribed <3 Days Referrals: None,Stated [Primary Care Provider] - 1-2 days Time of Disposition: 21:48
--- NOTE | 2024-06-03 19:36 | CT ---
EXAMINATION TYPE: CT chest angio for PE DATE OF EXAM: 06/03/2024 7:10 PM COMPARISON: Chest radiograph from same day. CLINICAL INDICATION: Female, 53 years old with history of Dizziness, syncope, elevated d-dimer; Posit oni dimer TECHNIQUE/CONTRAST: CTA scan of the thorax is performed with IV Contrast, patient injected with 65 mL of Isovue 370, MIP images are created and reviewed these are created on a separate workstation.. CT DLP: 313.8 mGycm, Automated exposure control for dose reduction was used. FINDINGS: Lungs/Pleura: No evidence of focal consolidation, pleural effusion or pneumothorax. Airway: Large airways are patent. Heart: Size within normal limits Vasculature: There is no evidence for a filling defect within the pulmonary vasculature to suggest ac jonah pulmonary embolism. The pulmonary artery is of normal size. Mediastinum: No gross evidence of adenopathy. Musculoskeletal: Mild disc degeneration changes are present throughout the thoracolumbar spine second isamar to osteophyte formation and facet joint arthropathy. Soft Tissues/lymph nodes: Unremarkable. Lower neck: No significant findings. Upper Abdomen: No significant findings. IMPRESSION: 1. No evidence of pulmonary embolism. [facility], , 06/03/2024 7:34 PM
[2024-06-03] MEDS: MORPHINE SULFATE 4 MG/ML SYRINGE IVP STA ×2 (19:55→22:48)
[2024-06-03 21:07] LABS: Appearance,Urine Cloudy (Clear); Bilirubin,Urine Negative (Negative); Blood,Urine Negative (Negative); Color,Urine Colorless; Glucose,Urine (UA) Negative (Negative); Hyaline Casts,Urine 14 /lpf (0-2); Ketones,Urine Negative (Negative); Leukocyte Esterase,Urine Large (Negative); Mucus,Urine Rare /hpf; Nitrite,Urine Negative (Negative); PH, Urine 5.5 (5.0-8.0); Protein,Urine Negative (Negative); RBC,Urine 9 /hpf (0-5); Specific Gravity,Urine 1.024 (1.001-1.035); Squamous Epithelial Cell,Urine 20 /hpf (0-4); Urobilinogen,Urine <2.0 mg/dL (<2.0); WBC,Urine 10 /hpf (0-5)
[2024-06-03] MEDS: ACET/COD 300 MG/30 MG STARTER PACK 6 TAB BTL PO STA (22:47)
[2024-06-03 23:00] VITALS: RESP 18
[2024-06-03 23:02] VITALS: BP 97/76; PULSE 81
== END 2024-06-03 23:02 | disposition home or self-care (01) ==
LOC: EC 16:56
DX: E86.0 Dehydration (principal); Z90.12 Acquired absence of left breast and nipple; R53.1 Weakness; R42 Dizziness and giddiness
CPT/HCPCS: 36415; 93005; 85379; 80053; 83605; 83735; 84484; 85025; 85610; 85730; 81001; 87636; 71046; 71275; 99285; 96374; 96376; 96361; J2270

== ENCOUNTER → 2024-06-07 | Outpatient (CLI) | payer MEDICARE ==
--- NOTE | 2024-05-24 16:02 | P.PN ---
Subjective Progress Note Date: 05/24/24 Principal diagnosis: Mass left breast Ella is a 53-year-old female who was seen in the emergency room yesterday with a mass in her left breast. There is a question whether this is an abscess versus a parotid cancer with infection. She was admitted for IV antibiotics. Her ultrasounds were reviewed with radiology and she is going to undergo an ultrasound-guided attempted aspiration/core biopsy today. Objective - Constitutional General appearance: Present: cooperative - EENT Eyes: Present: EOMI ENT: Present: hearing grossly normal - Neck Neck: Present: normal ROM - Respiratory Respiratory: bilateral: CTA - Cardiovascular Heart sounds: normal: S1, S2 - Integumentary Integumentary Comment(s): Erythema left breast/mass inner aspect of left breast approximately 6 x 6 cm in size Assessment and Plan Assessment: Impression: Mass left breast Infection mass Elevated white count Fever Bipolar Plan: Ultrasound core biopsy today Continue IV antibiotic therapy I will be gone until 05-30-24, Dr. Eckert will be covering me until that time.
[2024-06-07 13:14] VITALS: BP 107/74; PULSE 74; RESP 17; TEMP 97.8
--- NOTE | 2024-06-07 13:29 | P.GSCN ---
History of Present Illness Consult date: 06/07/24 Reason for Consult: mass left breast Requesting physician: Valeriy Root History of present illness: Ella is a 53 year old female seen initially in the ER with a mass in her left breast on 05-23-24. She was admited to the hospital for approximately 4 days for IV antibiotic therapy. Ultrasounds of the area were consistent with a mass in the region and they could not determine whether this may be malignant or an infection. By history the patient had been jumped on by a dog and developed a hematoma at the site prior to the development of the mass. She states that the area is not draining at this time but it is painful. She had an ultrasound- guided core biopsy of the region done on 05 27 24 which revealed fibrous scar abundant acute and chronic inflammation features compatible with an abscess. Surgery on her breast prior to this. At this time she is not complaining of any nipple drainage or other skin changes. caffiene: 2 cups tea/day nicotine:none chocolate: occasional BCP: never used hormoens: never used Family History: mother: Mouth and throat cancer from smoking Hormonal History: menarche: 14 M3, breast fed: no, age at : 18 menopause: hysterectomy at 41, left ovaries, done for painful periods Surgical History: Hysterectomy gallbladder appy Medical History: depression macular degeneration Social History: nicotine: none alcohol: 2 times a year drugs: Several times a week marijuana Review of Systems - Constitutional Reports fever - EENT EENT Comment(s): macular degeneration and cataracts, near sighted Ears: deny: decreased hearing, tinnitus Ears, nose, mouth and throat: Denies dysphagia - Breasts bilateral: as per HPI - Cardiovascular Denies chest pain, Denies shortness of breath - Respiratory Denies cough, Denies 7 - Gastrointestinal Gastrointestinal Comment(s): IBS Reports as per HPI - Genitourinary Genitourinary: Denies dysuria, Denies hematuria Menstruation: Reports post hysterectomy - Musculoskeletal Reports as per HPI - Integumentary Reports unusual bruising - Neurological Reports headaches - Psychiatric Reports anxiety, Reports depression - Endocrine Reports as per HPI - Hematologic/Lymphatic Reports as per HPI - Allergic/Immunologic Reports as per HPI Past Medical History Past Medical History: Cancer, GERD/Reflux, Osteoarthritis (OA), Thyroid Disorder Additional Past Medical History / Comment(s): Neuropathy lobo legs and feet, "Arachnoid" 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, hx "medically induced seizures", migraines, gout, cervical cancer, hypotension, hiatal hernia, IBS, History of Any Multi-Drug Resistant Organisms: None Reported Past Surgical History: Cholecystectomy, Hysterectomy Additional Past Surgical History / Comment(s): left breast biopsy, Past Anesthesia/Blood Transfusion Reactions: No Reported Reaction Past Psychological History: Anxiety, Bipolar, Depression Smoking Status: Never smoker Past Alcohol Use History: None Reported Past Drug Use History: Marijuana - Past Family History Mother Family Medical History: Cancer Medications and Allergies Home Medications Medication Instructions Recorded Confirmed Type Gabapentin 600 mg PO BID 14 Days #56 tab 04/07/24 05/23/24 Rx ARIPiprazole [Abilify] 5 mg PO DAILY #30 tab 05/27/24 Rx Acetaminophen Tab [Tylenol] 650 mg PO Q6HR PRN tab 05/27/24 Rx Amoxic-Pot Clav 875-125Mg 1 tab PO Q12HR 10 Days #20 tab 05/27/24 Rx [Augmentin 875-125] Doxycycline Hyclate [Vibratabs] 100 mg PO BID #20 tab 05/27/24 Rx Naproxen 250 mg PO Q8H PRN #30 tablet 05/27/24 Rx Venlafaxine HCl ER [Effexor XR] 75 mg PO DAILY #30 cap 05/27/24 Rx hydrOXYzine HCL [Atarax] 50 mg PO TID PRN #30 tab 05/27/24 Rx HYDROcodone/APAP 5-325MG [Gurley 1 tab PO Q6HR PRN 3 Days #12 tab 06/03/24 Rx 5-325] Allergies Allergy/AdvReac Type Severity Reaction Status Date / Time No Known Allergies Allergy Verified 06/03/24 17:39 Surgical - Exam - General moderate distress - Eyes normal ocular movement - Neck trachea midline - Respiratory normal respiratory effort, clear to auscultation - Cardiovascular Rhythm: regular Heart Sounds: normal: S1, S2 - Abdomen Abdomen: soft - Integumentary normal turgor - Neurologic no disoriented, no combative - Psychiatric oriented to time, oriented to person, oriented to place, speech is normal, memory intact Breast Exam: BRA: 36DDD Inspection: Bilateral grade 3 ptosis Palpation: Right breast: Multi positional exam no dominant masses or nodules of concern Right axilla: No adenopathy of concern Left breast: Multi positional exam 8 x 4 cm mass mid inner aspect of the breast this is tender to palpation there is an area of excoriation on the skin which has healed over and it is not draining at this time Left axilla: No adenopathy of concern Results Patient has had ultrasounds of the area in the recent past initially concern for malignancy and then concern for an abscess, attempt to aspirate any fluid was unsuccessful and pathology was consistent with fibrous scar and fat necrosis Assessment and Plan Assessment: Impression: Mass left breast; discordant biopsy results from ultrasound core biopsy performed on 05 27 24 Would like to obtain additional imaging studies prior to further intervention Bipolar Plan: bilateral mammogram KRISTEN, then follow up she states she cannot have a mammogram without xanax CC: Dr. Root
== END ==
LOC: WWCWWP 12:11
PROVIDERS: ATTEND Surgery
DX: N63.20 Unspecified lump in the left breast, unspecified quadrant (principal); F12.90 Cannabis use, unspecified, uncomplicated; R50.9 Fever, unspecified; F31.9 Bipolar disorder, unspecified; N61.1 Abscess of the breast and nipple

== ENCOUNTER 2024-06-25 17:59 | Inpatient (IN) | payer MEDICARE, MEDICAID ==
--- NOTE | 2024-06-25 18:26 | ED ---
General Adult HPI - General Source: patient, RN notes reviewed, old records reviewed <Gonzalez Montana - Last Filed: 06/25/24 21:44> <Gonzalez Caicedo - Last Filed: 07/02/24 18:42> - General Stated complaint: Overdose Time Seen by Provider: 06/25/24 18:00 - History of Present Illness Initial comments: This is a 53-year-old female who reports that she had a bunch of pills and she took them 3 hours prior to arrival because she want to kill herself. Patient does not know how many pills or what pills exactly she took but she did not bring all her empty bottles. Everyone of her pill bottles except for her Abilify should have had no pills left based on the day she filled them and the Abilify at most should have had only 2. Patient did states she was nauseous and vomited when she got here. Patient denies any chest pain difficulty breathing shortness of breath. Patient denies any abdominal pain. Patient denies any headache patient has numbness weakness. Patient states she has no reason to live and is suicidal. Patient states she does occasionally do cocaine (Gonzalez Montana) - Related Data Previous Rx's Medication Instructions Recorded Gabapentin 600 mg PO BID 14 Days #56 tab 04/07/24 Allergies Allergy/AdvReac Type Severity Reaction Status Date / Time No Known Allergies Allergy Verified 06/26/24 10:19 Review of Systems ROS Other: All systems not noted in ROS Statement are negative. <Gonzalez Montana - Last Filed: 06/25/24 21:44> ROS Other: All systems not noted in ROS Statement are negative. <Gonzalez Caicedo - Last Filed: 07/02/24 18:42> ROS Statement: Those systems with pertinent positive or pertinent negative responses have been documented in the HPI. Past Medical History Past Medical History: Cancer, GERD/Reflux, Osteoarthritis (OA), Thyroid Disorder Additional Past Medical History / Comment(s): Neuropathy lobo legs and feet, "Arachnoid" 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, hx "medically induced seizures", migraines, gout, cervical cancer, hypotension, hiatal hernia, IBS, History of Any Multi-Drug Resistant Organisms: None Reported Past Surgical History: Cholecystectomy, Hysterectomy Additional Past Surgical History / Comment(s): left breast biopsy, Past Anesthesia/Blood Transfusion Reactions: No Reported Reaction Past Psychological History: Anxiety, Bipolar, Depression Smoking Status: Never smoker Past Alcohol Use History: None Reported Past Drug Use History: Marijuana - Past Family History Mother Family Medical History: Cancer <Gonzalez Montana - Last Filed: 06/25/24 21:44> General Exam <Gonzalez Montana - Last Filed: 06/25/24 21:44> General appearance: alert, in no apparent distress Head exam: Present: atraumatic, normocephalic, normal inspection Eye exam: Present: normal appearance, PERRL, EOMI. Absent: scleral icterus, conjunctival injection, periorbital swelling ENT exam: Present: normal exam, mucous membranes moist Neck exam: Present: normal inspection. Absent: tenderness, meningismus, lymphadenopathy Respiratory exam: Present: normal lung sounds bilaterally. Absent: respiratory distress, wheezes, rales, rhonchi, stridor Cardiovascular Exam: Present: regular rate, normal rhythm, normal heart sounds. Absent: systolic murmur, diastolic murmur, rubs, gallop, clicks GI/Abdominal exam: Present: soft, normal bowel sounds. Absent: distended, tenderness, guarding, rebound, rigid Extremities exam: Present: normal inspection, full ROM, normal capillary refill. Absent: tenderness, pedal edema, joint swelling, calf tenderness Back exam: Present: normal inspection Neurological exam: Present: alert, oriented X3, CN II-XII intact Psychiatric exam: Present: normal affect, normal mood Skin exam: Present: warm, dry, intact, normal color. Absent: rash <Gonzalez Caicedo - Last Filed: 07/02/24 18:42> - General Exam Comments Initial Comments: GENERAL: Patient is well-developed and well-nourished. Patient is nontoxic and well- hydrated and is in no acute distress. ENT: Neck is soft and supple. No significant lymphadenopathy is noted. Oropharynx is clear. Moist mucous membranes. Neck has full range of motion without eliciting any pain. EYES: The sclera were anicteric and conjunctiva were pink and moist. Extraocular movements were intact and pupils were equal round and reactive to light. Eyelids were unremarkable. PULMONARY: Unlabored respirations. Good breath sounds bilaterally. No audible rales rhonchi or wheezing was noted. CARDIOVASCULAR: There is a regular rate and rhythm without any murmurs gallops or rubs. ABDOMEN: Soft and nontender with normal bowel sounds. SKIN: Skin is clear with no lesions or rashes and otherwise unremarkable. NEUROLOGIC: Patient is alert and oriented x3. Cranial nerves II through XII are grossly intact. Motor and sensory are also intact. Normal speech, volume and content. Symmetrical smile. MUSCULOSKELETAL: Normal extremities with adequate strength and full range of motion. LYMPHATICS: No significant lymphadenopathy is noted PSYCHIATRIC: Patient is angry and tearful and upset and does states she is suicidal (Gonzalez Montana) Course Vital Signs 06/25/24 06/26/24 06/26/24 18:05 00:28 14:15 Temperature 99.6 F 97.5 F L Pulse Rate 77 108 H Pulse Rate [ 91 Right Brachial] Respiratory 16 17 16 Rate Blood Pressure 124/90 121/81 Blood Pressure 129/79 [Right Arm Sitting] O2 Sat by Pulse 97 96 98 Oximetry EKG Findings - EKG Comments: EKG Findings:: EKG is sinus tachycardia 102 AL 142 QRS 98 QTc 435 - EKG Results: EKG: interpreted by ERMD <Gonzalez Caicedo - Last Filed: 07/02/24 18:42> Medical Decision Making - Lab Data Result diagrams: 06/25/24 18:52 06/25/24 18:52 <Gonzalez Montana - Last Filed: 06/25/24 21:44> - Lab Data Result diagrams: 06/25/24 18:52 06/25/24 18:52 <Gonzalez Caicedo - Last Filed: 07/02/24 18:42> - Medical Decision Making EKG is interpreted by myself. EKG shows a sinus rhythm at 66 bpm AL 136 QRS is 95 QT interval is 421 QTc is 434. Patient's EKG shows no ST segment elevation. Was pt. sent in by a medical professional or institution (, PA, FISH SMOKER, urgent care, hospital, or senior care...) When possible be specific @ -[No] Did you speak to anyone other than the patient for history (EMS, parent, family, police, friend...)? What history was obtained from this source @ -Son called the police and gave part of the history in this patient's background. Son states she does cocaine nearly every day Did you review nursing and triage notes (agree or disagree)? Why? @ -[I reviewed and agree with nursing and triage notes] Were old charts reviewed (outside hosp., previous admission, EMS record, old EKG, old radiological studies, urgent care reports/EKG's, senior care records)? Report findings @ -[No old charts were reviewed] Differential Diagnosis? @ -Differential Mental Health Depression, anxiety, bipolar, psychosis, schizophrenia, borderline personality, situational depression, adjustment disorder, behavioral disorder, brain tumor, malingering, substance abuse, encephalopathy, medication reaction, dementia, hypothyroidism, degenerative neurologic disorder, lupus.... This is not meant to be all-inclusive list EKG interpreted by me (3pts min.). @ -[As above] X-rays interpreted by me (1pt min.). @ -[None done] CT interpreted by me (1pt min.). @ -[None done] U/S interpreted by me (1pt. min.). @ -[None done] What testing was considered but not performed or refused? (CT, X-rays, U/S, labs)? Why? @ -[None] What meds were considered but not given or refused? Why? @ -[None] Did you discuss the management of the patient with other professionals (professionals i.e. , PA, FISH SMOKER, lab, RT, psych nurse, social organization professor, realty specialist, teacher, anti air warfare operations officer, casework specialist)? Give summary @ -I spoke with Dr. Caicedo he will take over the care of this patient at 9 PM. I did fill out a clinical certification on this patient the police petition the patient (Gonzalez Montana) 53 female will be admitted for mental health evaluation and treatment (Gonzalez Caicedo) - Lab Data Lab Results 06/25/24 06/25/24 06/25/24 Range/Units 18:52 18:52 19:32 WBC 6.9 (3.8-10.6) k/uL RBC 5.09 (3.80-5.40) m/uL Hgb 14.5 (11.4-16.0) gm/dL Hct 44.0 (34.0-46.0) % MCV 86.4 (80.0-100.0) fL MCH 28.4 (25.0-35.0) pg MCHC 32.9 (31.0-37.0) g/dL RDW 13.9 (11.5-15.5) % Plt Count 199 (150-450) k/uL MPV 8.6 Neutrophils % 61 % Lymphocytes % 28 % Monocytes % 6 % Eosinophils % 3 % Basophils % 1 % Neutrophils # 4.2 (1.3-7.7) k/uL Lymphocytes # 1.9 (1.0-4.8) k/uL Monocytes # 0.4 (0-1.0) k/uL Eosinophils # 0.2 (0-0.7) k/uL Basophils # 0.0 (0-0.2) k/uL Sodium 140 (137-145) mmol/L Potassium 3.9 (3.5-5.1) mmol/L Chloride 103 (98-107) mmol/L Carbon Dioxide 27 (22-30) mmol/L Anion Gap 10 mmol/L BUN 11 (7-17) mg/dL Creatinine 0.94 (0.52-1.04) mg/dL Est GFR (CKD-EPI)AfAm 79 (>60 ml/min/1.73 sqM) Est GFR (CKD-EPI)NonAf 69 (>60 ml/min/1.73 sqM) Glucose 78 (74-99) mg/dL Calcium 10.0 (8.4-10.2) mg/dL Total Bilirubin 0.7 (0.2-1.3) mg/dL AST 42 H (14-36) U/L ALT 39 H (4-34) U/L Alkaline Phosphatase 96 (38-126) U/L Total Protein 7.5 (6.3-8.2) g/dL Albumin 4.5 (3.5-5.0) g/dL Urine HCG, Qual (Not Detectd) Salicylates <1.0 mg/dL Urine Opiates Screen (NotDetected) Ur Oxycodone Screen (NotDetected) Urine Methadone Screen (NotDetected) Acetaminophen <10.0 ug/mL Ur Barbiturates Screen (NotDetected) U Tricyclic Antidepress (NotDetected) Ur Phencyclidine Scrn (NotDetected) Ur Amphetamines Screen (NotDetected) U Methamphetamines Scrn (NotDetected) U Benzodiazepines Scrn (NotDetected) Urine Cocaine Screen (NotDetected) U Marijuana (THC) Screen (NotDetected) Serum Alcohol <10 mg/dL SARS-CoV-2 (PCR) Not Detected (Not Detectd) 06/26/24 06/26/24 Range/Units 05:36 05:36 WBC (3.8-10.6) k/uL RBC (3.80-5.40) m/uL Hgb (11.4-16.0) gm/dL Hct (34.0-46.0) % MCV (80.0-100.0) fL MCH (25.0-35.0) pg MCHC (31.0-37.0) g/dL RDW (11.5-15.5) % Plt Count (150-450) k/uL MPV Neutrophils % % Lymphocytes % % Monocytes % % Eosinophils % % Basophils % % Neutrophils # (1.3-7.7) k/uL Lymphocytes # (1.0-4.8) k/uL Monocytes # (0-1.0) k/uL Eosinophils # (0-0.7) k/uL Basophils # (0-0.2) k/uL Sodium (137-145) mmol/L Potassium (3.5-5.1) mmol/L Chloride (98-107) mmol/L Carbon Dioxide (22-30) mmol/L Anion Gap mmol/L BUN (7-17) mg/dL Creatinine (0.52-1.04) mg/dL Est GFR (CKD-EPI)AfAm (>60 ml/min/1.73 sqM) Est GFR (CKD-EPI)NonAf (>60 ml/min/1.73 sqM) Glucose (74-99) mg/dL Calcium (8.4-10.2) mg/dL Total Bilirubin (0.2-1.3) mg/dL AST (14-36) U/L ALT (4-34) U/L Alkaline Phosphatase (38-126) U/L Total Protein (6.3-8.2) g/dL Albumin (3.5-5.0) g/dL Urine HCG, Qual Not Detected (Not Detectd) Salicylates mg/dL Urine Opiates Screen Not Detected (NotDetected) Ur Oxycodone Screen Not Detected (NotDetected) Urine Methadone Screen Not Detected (NotDetected) Acetaminophen ug/mL Ur Barbiturates Screen Not Detected (NotDetected) U Tricyclic Antidepress Not Detected (NotDetected) Ur Phencyclidine Scrn Not Detected (NotDetected) Ur Amphetamines Screen Not Detected (NotDetected) U Methamphetamines Scrn Not Detected (NotDetected) U Benzodiazepines Scrn Not Detected (NotDetected) Urine Cocaine Screen Detected H (NotDetected) U Marijuana (THC) Screen Detected H (NotDetected) Serum Alcohol mg/dL SARS-CoV-2 (PCR) (Not Detectd) Disposition <Gonzalez Montana - Last Filed: 06/25/24 21:44> Is patient prescribed a controlled substance at d/c from ED?: No <Gonzalez Ciacedo - Last Filed: 07/02/24 18:42> Clinical Impression: Suicidal ideation, Dehydration, Altered mental status, Major depressive disorder without psychotic features Disposition: TRANSFER TO PSYCH HOSP/UNIT Condition: Fair
[2024-06-25 19:11] LABS: Basophils % (A) 1 %; Eosinophils # (A) 0.2 k/uL (0-0.7); Eosinophils % (A) 3 %; HGB 14.5 gm/dL (11.4-16.0); Lymphocytes # (A) 1.9 k/uL (1.0-4.8); Lymphocytes % (A) 28 %; MCH 28.4 pg (25.0-35.0); MCHC 32.9 g/dL (31.0-37.0); MCV 86.4 fL (80.0-100.0); Mean Platelet Volume 8.6; Monocytes # (A) 0.4 k/uL (0-1.0); Monocytes % (A) 6 %; Neutrophils # (A) 4.2 k/uL (1.3-7.7); Neutrophils % (A) 61 %; Platelet Count 199 k/uL (150-450); RBC 5.09 m/uL (3.80-5.40); RDW 13.9 % (11.5-15.5); WBC 6.9 k/uL (3.8-10.6)
[2024-06-25 19:18] LABS: ALT 39 U/L (4-34); Acetaminophen <10.0 ug/mL; African American GFR (CKD) 79 (>60 ml/min/1.73 sqM); Albumin 4.5 g/dL (3.5-5.0); Alcohol <10 mg/dL; Anion Gap 10 mmol/L; Blood Urea Nitrogen 11 mg/dL (7-17); Carbon Dioxide 27 mmol/L (22-30); Chloride 103 mmol/L (98-107); Glucose 78 mg/dL (74-99); Non-African American GFR(CKD) 69 (>60 ml/min/1.73 sqM); Salicylate <1.0 mg/dL; Sodium 140 mmol/L (137-145); Total Bilirubin 0.7 mg/dL (0.2-1.3); Total Protein 7.5 g/dL (6.3-8.2)
[2024-06-25] MEDS: SODIUM CHLORIDE 0.9% 1,000 ML IV STA (19:30)
[2024-06-25 19:39] LABS: AST 42 U/L (14-36); Alkaline Phosphatase 96 U/L (38-126); Potassium 3.9 mmol/L (3.5-5.1)
[2024-06-26 05:58] LABS: Amphetamine Screen,Urine Not Detected (NotDetected); Barbiturate Screen,Urine Not Detected (NotDetected); Benzodiazepines Screen,Urine Not Detected (NotDetected); Cocaine Screen,Urine Detected (NotDetected); Methadone Screen, Urine Not Detected (NotDetected); Opiate Screen,Urine Not Detected (NotDetected); Oxycodone Screen, Urine Not Detected (NotDetected); Phencyclidine Screen,Urine Not Detected (NotDetected); Tricyclic Antidepressant,Urine Not Detected (NotDetected); Urn Cannabinoid Scrn Detected (NotDetected)
[2024-06-26] MEDS ORDERED: MAG HYDROX/AL HYDROX/SIMETH 355 ML BOTTLE PO PRN (13:35)
[2024-06-26] MEDS ORDERED: MAGNESIUM HYDROXIDE 2,400 MG/30 ML CUP PO PRN (13:35)
[2024-06-26] MEDS ORDERED: HALOPERIDOL LACTATE 5 MG/ML 1 ML VIAL IM PRN (13:35)
[2024-06-26] MEDS ORDERED: LORazepam 2 MG/ML INJ IM PRN (13:35)
[2024-06-26] MEDS ORDERED: IBUPROFEN 600 MG TAB PO PRN (13:35)
[2024-06-26] MEDS: GABAPENTIN 300 MG CAP PO SCH (20:56)
[2024-06-27] MEDS: TOPIRAMATE 25 MG TAB PO SCH (12:38)
[2024-06-27] MEDS: ARIPiprazole 5 MG TAB PO SCH (12:39)
[2024-06-27] MEDS: VENLAFAXINE HCL ER 75 MG CAP PO SCH (12:39)
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
--- NOTE | 2024-06-27 13:03 | P.MDCNMH ---
History of Present Illness H&P Date: 06/27/24 Patient is a breast abscess status post biopsy 05/27/2024 that revealed fibrous scar with abundant acute and chronic inflammation features compatible with an abscess, hypothyroidism, history of polysubstance use, who presented to the ER with suicidal thoughts and is admitted to [facility]. Hospitalist service consulted for medical management. Patient on admission-afebrile, heart rate in 100s, BP 121/181, satting well on room air.Denies chest pain, SOB, abdominal pain, urinary problems, constipation Blood work from 2 days ago showed unremarkable CBC, CMP positive for elevated AST and ALT 42 and 39 accordingly, previously liver enzymes elevated as well, UDS positive for cocaine and THC. TSH normal 2.3 Pertinent positives and negatives as discussed in HPI, a complete review of systems was performed and all other systems are negative. Patient seen and examined at bedside. Vital signs reviewed General: nontoxic, no distress, appears at stated age Derm: warm, dry Head: atraumatic, normocephalic, symmetric Eyes: EOMI, no lid lag, anicteric sclera, pupils equal round reactive to light ENT: Nose and ears atraumatic Neck: No thyromegaly, supple Mouth: no lip lesion, mucus membranes moist Cardiovascular: S1S2 reg, no murmur, no edema Lungs: clear to auscultation bilateral, no rhonchi, no rales, no wheeze, no accessory muscle use Abdominal: soft, nontender to palpation, no guarding, no appreciable organomegaly Ext: no gross muscle atrophy, muscle strength muscle strength 5 out of 5 in all 4 extremities, no contractures Neuro: CN II-XII grossly intact Psych: Alert, oriented, appropriate affect Assessment/Plan: Elevated liver enzymes: Patient denies abdominal pain, no changes in bowel habits. Continue to monitor. History of hypothyroidism, currently not on medications, TSH is normal Recent history of breast abscess, continue to follow-up with [facility] as scheduled Depression, suicidal thoughts: Management per primary psychiatry service Past Medical History Past Medical History: Cancer, GERD/Reflux, Osteoarthritis (OA), Thyroid Disorder Additional Past Medical History / Comment(s): Neuropathy lobo legs and feet, "Arachnoid" 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, hx "medically induced seizures", migraines, gout, cervical cancer, hypotension, hiatal hernia, IBS, History of Any Multi-Drug Resistant Organisms: None Reported Past Surgical History: Cholecystectomy, Hysterectomy Additional Past Surgical History / Comment(s): left breast biopsy, Past Anesthesia/Blood Transfusion Reactions: No Reported Reaction Past Psychological History: Anxiety, Bipolar, Depression Smoking Status: Never smoker Past Alcohol Use History: None Reported Past Drug Use History: Marijuana - Past Family History Mother Family Medical History: Cancer Medications and Allergies Home Medications Medication Instructions Recorded Confirmed Type Gabapentin 600 mg PO BID 14 Days #56 tab 04/07/24 06/26/24 Rx Allergies Allergy/AdvReac Type Severity Reaction Status Date / Time No Known Allergies Allergy Verified 06/26/24 10:19 Physical Exam Vitals: Vital Signs Temp Pulse Resp BP Pulse Ox 06/26/24 14:15 97.5 F L 91 16 129/79 98 Intake and Output 06/26/24 06/27/24 06/27/24 22:59 06:59 14:59 Other: Weight 78.075 kg Cranial Nerve Examination - Cranial Nerves Cranial Nerve II- Optic: Intact Cranial Nerve III- Oculomotor: Intact Cranial Nerve IV- Trochlear: Intact Cranial Nerve V- Trigeminal: Intact Cranial Nerve - Abducens: Intact Cranial Nerve VII- Facial: Intact Cranial Nerve VIII- Auditory: Intact Cranial Nerve IX- Glossopharyngeal: Intact Cranial Nerve X- Vagus: Intact Cranial Nerve XI- Accessory: Intact Cranial Nerve XII- Hypoglossal: Intact Results CBC & Chem 7: 06/25/24 18:52 06/25/24 18:52
[2024-06-27 15:34] LABS: Chol/HDL Ratio 5.55 Ratio; LDL Cholesterol,Calculated 206.6 mg/dL (0.0-131.0)
[2024-06-27] MEDS: traZODone HCL 50 MG TAB PO SCH (20:58)
[2024-06-28] MEDS: VENLAFAXINE HCL ER 150 MG CAP PO SCH (10:28)
[2024-06-28] MEDS: ARIPiprazole 5 MG TAB PO SCH (10:29)
--- NOTE | 2024-06-28 11:37 | P.PN ---
Progress Note - Text Progress Note Date: 06/28/24 Interval History: Patient was seen in her room and was directable and agreeable to speak with wr iter in the office. She continues to report both high depression and anxiety, not attending groups however was encouraged to. She expresses feeling the same as she felt yesterday. Does report sleeping well and denying any headaches with the Topamax. She was goal oriented however, talked about her desire to be discharged prior to her eye appointment in the afternoon on Monday. At this time patient denies any suicidal or homicidal ideations, intent or plan. Patient denies any auditory, visual hallucinations and denies any paranoia or delusions. Patient denies any side effects from the medications and has been compliant with meds. Mental Status Exam: General Appearance: Patient appears to be stated age is alert, directable, and cooperative. Behavior: Patient is calmly seated without any agitated behavior. Psychomotor slowing evident Speech: Patient's speech is fluent and nonpressured. Mood/Affect: Mood is depressed, affect is congruent and constricted. Suicidality/Homicidality: Patient denies having any suicidal or homicidal ideation intent or plan. Perceptions: Patient denies any visual hallucinations and denies any auditory hallucinations Though content/process: There is no evidence of any delusional thought content and thought process is linear and goal-directed. Memory and concentration: AOX3, grossly intact for the purposes of this session Judgment and insight: Improving mildly Assessment Suicide attempt via OD Major depressive disorder, recurrent, severe Generalized anxiety disorder Cocaine abuse Cannabis use disorder Plan: -Patient continues to meet criteria for inpatient psychiatric admission for symptom stabilization and safety. Patient has signed adult voluntary form and medication consent and was placed in patient's chart. -Medications: Increase Effexor XR to 150 mg daily for depression/anxiety, Abilify increased to 7.5 mg daily as an adjunct, can consider increasing both as needed over the weekend if depressive symptoms persist. Continue Topamax 50 mg daily for migraines, trazodone 50 mg at bedtime for insomnia -When necessary Ativan and Haldol for agitation/aggression. -Labs: Reviewed -SW on board for discharge planning. Encouraged the patient to participate in milieu. Anticipate discharge back home early next week
[2024-06-28] MEDS: LORazepam 1 MG TAB PO PRN (19:04)
[2024-06-28] MEDS: ACETAMINOPHEN TAB 325 MG TAB PO PRN (21:02)
--- NOTE | 2024-06-29 14:48 | P.PN ---
Progress Note - Text Progress Note Date: 06/29/24 Interval history: Patient was seen laying in her bed today and was directable and agreeable to speak with director underwriter sales. She claims that she was up earlier today, claims that she does feel little bit better today with regards to her mood and anxiety. Was fairly withdrawn, improving appetite, claims that she slept fairly last night has been taking her medications as prescribed. Claims her mood and anxiety been improving. She was fairly concrete during interaction. At this time patient denies any suicidal or homicidal ideations intent or plan. Denies any Auditory or visual hallucinations. Patient denies any side effects from the medications and has been compliant with meds. Mental status exam: General Appearance: Patient appears to be stated age is alert, directable, and cooperative. Behavior: No agitated behavior. Patient is calm and directable, cooperative Speech: Patient's speech is fluent and nonpressured. Fairly concrete, monotone Mood/Affect: Mood is improving mildly, affect is congruent and constricted. Suicidality/Homicidality: Patient denies having any suicidal or homicidal ideation intent or plan. Perceptions: Patient denies any auditory or visual hallucinations. Though content/process: There is no evidence of any delusional thought content and thought process is linear and goal-directed. [place] Memory and concentration: AOX3, grossly intact for the purposes of this session Judgment and insight: improving mildly Assessment/Plan: Continue with current diagnosis. Patient continues to meet criteria for inpatient psychiatric admission for symptom stabilization and safety. Patient will be maintained on current psychotropic medication regimen. Monitor for medication compliance and for any psychotropic medication side effects. Will continue to monitor ongoing response to treatment. Encouraged participation in milieu.
--- NOTE | 2024-06-30 11:06 | P.PN ---
Progress Note - Text Progress Note Date: 06/30/24 Interval history: Patient was seen laying in her bed today and was directable and agreeable to speak with continuity writer. Patient claims that she ate breakfast this morning. Continues to be fairly concrete, mainly isolative on the unit. She did not report any changes in her mood and anxiety. Was fairly withdrawn, improving appetite, claims that she slept fairly last night has been taking her medications as prescribed. She was fairly concrete during interaction. At this time patient denies any suicidal or homicidal ideations intent or plan. Denies any Auditory or visual hallucinations. Patient denies any side effects from the medications and has been compliant with meds. Mental status exam: General Appearance: Patient appears to be stated age is alert, directable, and cooperative. Behavior: No agitated behavior. Patient is calm and directable, cooperative, improving mildly Speech: Patient's speech is fluent and nonpressured. Fairly concrete, monotone, improving mildly Mood/Affect: Mood is improving mildly, affect is congruent and constricted. Suicidality/Homicidality: Patient denies having any suicidal or homicidal ideation intent or plan. Perceptions: Patient denies any auditory or visual hallucinations. Though content/process: There is no evidence of any delusional thought content and thought process is linear and goal-directed. [place] Memory and concentration: AOX3, grossly intact for the purposes of this session Judgment and insight: improving mildly Assessment/Plan: Continue with current diagnosis. Patient continues to meet criteria for inpatient psychiatric admission for symptom stabilization and safety. Patient will be maintained on current psychotropic medication regimen, with the exception of increasing Abilify to 10 mg daily. Monitor for medication compliance and for any psychotropic medication side effects. Will continue to monitor ongoing response to treatment. Encouraged participation in milieu.
[2024-06-30] MEDS: haloperidoL 5 MG TAB PO PRN (14:15)
[2024-06-30] MEDS: OLANZapine 7.5 MG TAB PO ONE (16:26)
[2024-07-01] MEDS: ARIPiprazole 10 MG TAB PO SCH (08:24)
--- NOTE | 2024-07-01 12:25 | P.PN ---
Progress Note - Text Progress Note Date: 07/01/24 Interval History: Patient was seen laying in bed and was directable and agreeable to speak with ticket writer in the office. Psychomotor slowing still evident. Patient appears to be minimizing her concerns as yesterday she required as needed medications for suicidal ideations, tearfulness and her sister also cooperated that patient did not appear to be doing well over the phone and was reporting thoughts of to her. Patient today was extremely tearful, difficulty opening up. Discussed with patient these concerns as she has largely been isolative, not attending to ADLs however is hoping to be discharged tomorrow before her eye appointment. She mentions her mood is better however given these mood incongruency, she was open to increasing her antidepressant medication. She was encouraged to attend groups. She did mention speaking to her sister over the weekend and that her sister still seemed mad at her for allowing her ex to stay with her for a week. She mentions this making her feel upset and was encouraged to communicate these feelings to her sister as well as using coping skills. At this time patient denies any suicidal or homicidal ideations, intent or plan. Patient denies any auditory, visual hallucinations and denies any paranoia or delusions. Patient denies any side effects from the medications and has been compliant with meds. Mental Status Exam: General Appearance: Patient appears to be stated age is alert, directable, and cooperative. Behavior: Patient is calmly seated without any agitated behavior. There is evidence of psychomotor slowing, tearful throughout encounter, minimizing concerns Speech: Patient's speech is fluent and nonpressured. Mood/Affect: Mood is improving mildly, affect is congruent and constricted. Suicidality/Homicidality: Patient denies having any suicidal or homicidal ideation intent or plan. Perceptions: Patient denies any visual hallucinations and denies any auditory hallucinations Though content/process: There is no evidence of any delusional thought content and thought process is linear. Memory and concentration: AOX3, grossly intact for the purposes of this session Judgment and insight: Improving mildly Assessment Suicide attempt via OD Major depressive disorder, recurrent, severe Generalized anxiety disorder Cocaine abuse Cannabis use disorder Plan: -Patient continues to meet criteria for inpatient psychiatric admission for symptom stabilization and safety. Patient has signed adult voluntary form and m edication consent and was placed in patient's chart. -Medications: Abilify increased to 10 mg daily today as an adjunct, continue Effexor XR 150 mg daily today for depression/anxiety, Topamax 50 mg daily for migraines, trazodone 50 mg at bedtime for insomnia -When necessary Ativan and Haldol for agitation/aggression. -Labs: Reviewed -SW on board for discharge planning. Encouraged the patient to participate in milieu. Anticipate discharge home midweek pending stabilization in suicidal thoughts
[2024-07-02 07:08] VITALS: BP 96/62; PULSE 83; RESP 14; TEMP 97.7
[2024-07-02] MEDS: VENLAFAXINE HCL ER 75 MG CAP PO SCH (08:25)
[2024-07-02] MEDS: diphenhydrAMINE 25 MG CAP PO PRN (10:36)
[2024-07-02 12:05] LABS: Appearance,Urine Cloudy (Clear); Bacteria,Urine Occasional /hpf; Bilirubin,Urine Negative (Negative); Blood,Urine Trace (Negative); Color,Urine Light Yellow; Glucose,Urine (UA) Negative (Negative); Ketones,Urine Negative (Negative); Leukocyte Esterase,Urine Large (Negative); Mucus,Urine Rare /hpf; Nitrite,Urine Negative (Negative); PH, Urine 6.5 (5.0-8.0); Protein,Urine Negative (Negative); RBC,Urine 4 /hpf (0-5); Specific Gravity,Urine 1.015 (1.001-1.035); Squamous Epithelial Cell,Urine 2 /hpf (0-4); Urobilinogen,Urine <2.0 mg/dL (<2.0); WBC,Urine 169 /hpf (0-5)
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
[2024-07-02 19:30] LABS: Influenza A Not Detected (Not Detectd); Influenza B Not Detected (Not Detectd); RSV Detected (Not Detectd)
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
== END 2024-07-02 23:03 | disposition short-term general hospital (02) | DRG 881 ==
LOC: EC 17:59 → 3MHU 06-26 13:32
PROVIDERS: ADMIT Psychiatry & Neurology Psychiatry; ATTEND Psychiatry & Neurology Psychiatry
DX: F32.9 Major depressive disorder, single episode, unspecified (principal); E03.9 Hypothyroidism, unspecified; F31.9 Bipolar disorder, unspecified; T50.902A Poisoning by unspecified drugs, medicaments and biological substances, intentional self-harm, initial encounter; E86.0 Dehydration; F12.90 Cannabis use, unspecified, uncomplicated; F41.1 Generalized anxiety disorder; G47.00 Insomnia, unspecified; G47.10 Hypersomnia, unspecified; N61.1 Abscess of the breast and nipple; Z79.899 Other long term (current) drug therapy; Z90.710 Acquired absence of both cervix and uterus; Z11.52 Encounter for screening for COVID-19
CPT/HCPCS: 36415; 51701; 51798; 80053; 80061; 80143; 80179; 80306; 80320; 81001; 81025; 82075; 83036; 84443; 85025; 87635; 87636; 93005; 96365

== ENCOUNTER 2024-07-02 22:16 | Observation (INO) | payer MEDICARE ==
[2024-07-03] MEDS ORDERED: ACETAMINOPHEN TAB 325 MG TAB PO PRN (01:26)
[2024-07-03 03:12] VITALS: RESP 16
--- NOTE | 2024-07-03 03:28 | P.HPIM ---
History of Present Illness H&P Date: 07/03/24 History of present illness; Patient is a 53-year-old female with history of peripheral neuropathy, de pression, history of polysubstance abuse, presents with RSV. [facility]. Patient states symptoms began yesterday with runny nose and sore throat with cough productive of clear and white phlegm. She has no other complaints. Patient reports absence of fever, chills, dyspnea, abdominal pain. REVIEW OF SYSTEMS: Pertinent positives and negatives noted in HPI. PHYSICAL EXAMINATION: Vitals reviewed GENERAL: Resting comfortably in bed. EYES: PERRL, no scleral injection or icterus. No vision loss. HENT: Normocephalic, atraumatic, hearing acuity intact, moist mucous membranes NECK: No tracheal deviation, full range of motion. CARDIOVASCULAR: S1 and S2 present. No murmurs, rubs, or gallops. PULMONARY: Chest is clear to auscultation, no wheezing, rhonchi, or crackles. ABDOMEN: Soft, nontender, nondistended. No palpable organomegaly. MUSCULOSKELETAL: No apparent joint swelling and deformities. EXTREMITIES: No apparent cyanosis, clubbing. No pedal edema. NEUROLOGICAL: Alert and oriented. Gross neurological examination with no apparent focal deficits. SKIN: No apparent rashes. FINDINGS: Labs significant for RSV, UA significant for cloudy appearance, trace blood, leukocyte esterase, urine WBC Assessment and Plan: In summary, patient is a 53-year-old female with history of peripheral neuropathy, depression, history of polysubstance abuse, presents with RSV. # RSV Supportive measures with oral hydration and acetaminophen as needed #Anxiety/Depression #Suicide attempt via OD -Continue Effexor or XR 225 mg daily for anxiety depression Continue Abilify 10 mg daily Continue trazodone 50 mg for insomnia -Consult Psychiatry for clearance for discharge in am #Abnormal urinalysis -Patient is asymptomatic No antibiotics needed at this time #Breast abscess Continue follow-up with chemo recordable as scheduled Chronic Medical Conditions #Hypothyroidism -no home medication DVT ppx: Subq Lovenox 40 meq daily Code status: Full code F: P.o. E: Replete as needed N: Heart healthy diet Anticipated discharge place: Home Anticipated discharge time: Today Dictation was produced using [employer] dictation software. Please excuse any grammatical, word or spelling errors. Past Medical History Past Medical History: Cancer, GERD/Reflux, Osteoarthritis (OA), Thyroid Disorder Additional Past Medical History / Comment(s): Neuropathy lobo legs and feet, "Arachnoid" 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, hx "medically induced seizures", migraines, gout, cervical cancer, hypotension, hiatal hernia, IBS, History of Any Multi-Drug Resistant Organisms: None Reported Past Surgical History: Cholecystectomy, Hysterectomy Additional Past Surgical History / Comment(s): left breast biopsy, Past Anesthesia/Blood Transfusion Reactions: No Reported Reaction Past Psychological History: Anxiety, Bipolar, Depression Smoking Status: Never smoker Past Alcohol Use History: None Reported Past Drug Use History: Marijuana - Past Family History Mother Family Medical History: Cancer Medications and Allergies Home Medications Medication Instructions Recorded Confirmed Type Gabapentin 600 mg PO BID 14 Days #56 tab 04/07/24 06/26/24 Rx Allergies Allergy/AdvReac Type Severity Reaction Status Date / Time No Known Allergies Allergy Verified 06/26/24 10:19 Physical Exam Vitals: Vital Signs Temp Pulse Resp BP Pulse Ox 07/03/24 00:13 98.1 F 101 H 17 121/87 96 Intake and Output 07/02/24 07/02/24 07/03/24 14:59 22:59 06:59 Other: Weight 78.018 kg Thrombosis Risk Factor Assmnt - Choose All That Apply Any of the Below Risk Factors Present?: Yes Each Factor Represents 1 point: Age 41-60 years Other Risk Factors: No Other congenital or acquired thrombophilia - If yes, enter type in comment: No Thrombosis Risk Factor Assessment Total Risk Factor Score: 1 Thrombosis Risk Factor Assessment Level: Low Risk
[2024-07-03 07:56] LABS: Basophils % (A) 1 %; Eosinophils # (A) 0.4 k/uL (0-0.7); Eosinophils % (A) 6 %; HCT 40.8 % (34.0-46.0); Lymphocytes % (A) 29 %; MCHC 31.9 g/dL (31.0-37.0); MCV 87.7 fL (80.0-100.0); Mean Platelet Volume 8.1; Monocytes # (A) 0.5 k/uL (0-1.0); Monocytes % (A) 8 %; Neutrophils # (A) 3.8 k/uL (1.3-7.7); Neutrophils % (A) 56 %; Platelet Count 225 k/uL (150-450); RBC 4.65 m/uL (3.80-5.40); RDW 13.6 % (11.5-15.5); WBC 6.8 k/uL (3.8-10.6)
[2024-07-03 08:09] LABS: African American GFR (CKD) 67 (>60 ml/min/1.73 sqM); Anion Gap 9 mmol/L; Blood Urea Nitrogen 22 mg/dL (7-17); Calcium 9.7 mg/dL (8.4-10.2); Carbon Dioxide 23 mmol/L (22-30); Chloride 106 mmol/L (98-107); Glucose 92 mg/dL (74-99); Non-African American GFR(CKD) 58 (>60 ml/min/1.73 sqM); Potassium 4.1 mmol/L (3.5-5.1); Sodium 138 mmol/L (137-145)
[2024-07-03] MEDS: GABAPENTIN 300 MG CAP PO SCH (08:57)
[2024-07-03] MEDS: ARIPiprazole 10 MG TAB PO SCH (08:57)
[2024-07-03] MEDS: VENLAFAXINE HCL ER 75 MG CAP PO SCH (08:57)
[2024-07-03] MEDS: ENOXAPARIN 40 MG/0.4 ML SYRINGE SQ SCH (08:58)
[2024-07-03 10:53] VITALS: PULSE 101
[2024-07-03 14:56] VITALS: BMI 28.3
[2024-07-03 15:13] VITALS: BP 115/72; TEMP 98.7
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
--- NOTE | 2024-07-03 16:03 | P.DS ---
Providers Date of admission: 07/02/24 23:24 Expected date of discharge: 07/03/24 Attending physician: Jonaa Parker MD Consults: 07/03/24 03:28 Consult Physician Routine Consulting Provider: Glenroy Ruiz Consult Reason/Comments: recent suicide attempt, to discharge Do you want consulting provider notified?: Yes Primary care physician: Stated None Hospital Course: Discharge diagnosis: RSV infection Anxiety/depression Suicidal attempt via overdose Breast abscess Hospital Course: 53-year-old female with history of peripheral neuropathy, depression, history of polysubstance abuse, presents with RSV. [facility] a [facility] from [facility] admitted for suicidal attempt. Supportive treatment for RSV. Patient was seen by psychiatry, marvin to be discharged from their standpoint. Sitter discontinued. Patient be discharged on Effexor, Abilify, trazodone, gabapentin and Topamax. She has a follow-up appointment with counseling center. Patient seen and examined at bedside. Vital signs reviewed and stable. General: Nontoxic, no distress, appears at stated age Derm: Warm, dry Head: Atraumatic, normocephalic, symmetric Eyes: EOMI, no lid lag, anicteric sclera Mouth: No lip lesion, mucus membranes moist Cardiovascular: S1S2 reg, no murmur Lungs: CTA bilateral, no rhonchi, no rales, no accessory muscle use Abdominal: Soft, nontender to palpation, no guarding, no appreciable organomegaly Ext: No gross muscle atrophy, no edema, no contractures Neuro: CN II-XI grossly intact, no focal neuro deficits Psych: Alert, oriented, appropriate affect A total of 32 minutes of time were spent preparing this complex discharge summary. Patient was discharged on 07/03/2024 at 1559. Plan - Discharge Summary Discharge Rx Participant: Yes New Discharge Prescriptions: New traZODone HCL [Desyrel] 50 mg PO HS 15 Days #15 tab Venlafaxine HCl ER [Effexor XR] 225 mg PO DAILY 15 Days #45 cap ARIPiprazole [Abilify] 10 mg PO DAILY 15 Days #15 tab Gabapentin [Neurontin] 600 mg PO BID 15 Days #30 cap Topiramate [Topamax] 100 mg PO DAILY 15 Days #15 tab Discontinued Gabapentin 600 mg PO BID 14 Days #56 tab Discharge Medication List ARIPiprazole [Abilify] 10 mg PO DAILY 15 Days #15 tab 07/03/24 [Rx] Gabapentin [Neurontin] 600 mg PO BID 15 Days #30 cap 07/03/24 [Rx] Topiramate [Topamax] 100 mg PO DAILY 15 Days #15 tab 07/03/24 [Rx] Venlafaxine HCl ER [Effexor XR] 225 mg PO DAILY 15 Days #45 cap 07/03/24 [Rx] traZODone HCL [Desyrel] 50 mg PO HS 15 Days #15 tab 07/03/24 [Rx] Follow up Appointment(s)/Referral(s): [facility] - 07/08/24 2:00 pm (07/08 at 2pm with Stephen) Patient Instructions/Handouts: Respiratory Syncytial Virus (DC), Suicide Prevention (DC) Discharge Disposition: HOME SELF-CARE
[2024-07-03] MEDS ORDERED: traZODone HCL 50 MG TAB PO SCH (21:00)
== END 2024-07-03 16:44 | disposition home or self-care (01) ==
LOC: 3SCARD 23:24 → INTOOBSV 23:24
PROVIDERS: ADMIT Internal Medicine; ATTEND Internal Medicine
DX: T50.902A Poisoning by unspecified drugs, medicaments and biological substances, intentional self-harm, initial encounter (principal); B97.4 Respiratory syncytial virus as the cause of diseases classified elsewhere; F31.5 Bipolar disorder, current episode depressed, severe, with psychotic features; F41.1 Generalized anxiety disorder; F14.10 Cocaine abuse, uncomplicated; F12.10 Cannabis abuse, uncomplicated; G47.00 Insomnia, unspecified; R82.90 Unspecified abnormal findings in urine; N61.1 Abscess of the breast and nipple; E03.9 Hypothyroidism, unspecified; K21.9 Gastro-esophageal reflux disease without esophagitis; G62.9 Polyneuropathy, unspecified; Z85.41 Personal history of malignant neoplasm of cervix uteri; Z79.899 Other long term (current) drug therapy; Z81.8 Family history of other mental and behavioral disorders
CPT/HCPCS: 96372; 80048; 85025; G0378 ×2; G0379; J1650

== ENCOUNTER → 2024-08-05 | Outpatient (CLI) | payer MEDICARE ==
--- NOTE | 2024-08-14 09:52 | BMR ---
EXAM DATE: 08/05/2024 EXAM DESCRIPTION: MRI breast without and with contrast 831 INDICATION: History of left breast biopsy 05/27/2024 revealed: Fibrous scar with abundant acute and chronic inflammation and features compatible with abscess. Fat necrosis and granulation tissue present. Focal mammary duct ectasia. COMPARISON: 06/19/2024 CONTRAST: 7.5 mL gadobutrol TECHNIQUE: Multiplanar multi sequential imaging of the breasts was performed before and after intravenous contrast administration. Post processing was performed on a separate [employer] workstation. FINDINGS: The breast tissue is predominantly fatty. There is mild background parenchymal enhancement. Right breast: No suspicious enhancement. A 0.8 cm benign-appearing cyst 10 o'clock position mid depth. Small cyst cluster at 5 o'clock position. Left breast: At 11 o'clock position anterior depth, there is ill-defined heterogeneous T1 hyperintense, predominantly T2 hypointense, non mass lesion measuring 1.3 x 1.7 cm, with minimal persistent delayed enhancement corresponds to site of prior biopsy. Tiny focus of central susceptibility artifact consistent with biopsy clip marker. There are no enlarged axillary lymph nodes. No abnormal marrow signal in the visualized osseous structures. IMPRESSION: 1. Left breast 11 o'clock position demonstrates heterogeneous signal and no suspicious enhancement, most suggestive of inflammatory process. 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 Recommend clinical management and short-term follow-up left breast diagnostic ultrasound to assess stability, resolution. 2. There is no evidence of malignancy in either breast. 3. BI-RADS 2. MTDD
== END | disposition home or self-care (01) ==
LOC: RADMRIMAIN 15:36
PROVIDERS: ATTEND Surgery
DX: N63.22 Unspecified lump in the left breast, upper inner quadrant (principal)
CPT/HCPCS: 77049; A9585

== ENCOUNTER → 2024-08-08 | Outpatient (CLI) | payer MEDICARE ==
[2024-08-08 08:43] VITALS: BP 97/64; PULSE 65; RESP 17; TEMP 97.4
--- NOTE | 2024-08-08 09:14 | P.PN ---
Subjective Progress Note Date: 08/08/24 Principal diagnosis: mass left breast 08-08-24 Principal diagnosis: mass left breast 06-21-24 Reason for Consult: mass left breast Requesting physician: Valeriy Root History of present illness: Ella is a 54 year old female seen initially in the ER with a mass in her left breast on 05-23-24. She was admited to the hospital for approximately 4 days for IV antibiotic therapy. Ultrasounds of the area were consistent with a mass in the region and they could not determine whether this may be malignant or an infection. By history the patient had been jumped on by a dog and developed a hematoma at the site prior to the development of the mass. She states that the area is not draining at this time but it is painful. She had an ultrasound- guided core biopsy of the region done on 05 27 24 which revealed fibrous scar abundant acute and chronic inflammation features compatible with an abscess. No surgery on her breast prior to this. At this time she is not complaining of any nipple drainage or other skin changes. bilateral mammogram on 06-19-24: BIRAD 2 repeat mammogram in 1 year The lesion in the left breast is black and blue. The lump has gotten smaller as per the patient. She is not complaining of any drianage or other changes in the breast. MRI of the breast on 08-05-24; this was reviewed personally and discussed with Dr. Olea felt to have a cystic lesion in the right breast and uptake noted at site of biopsy possible abscess left breast official read on MRI not done yet The patient states the spot in her left breast has resolved and is not painful, she is not on any antibiotics, she not had any fever or chills Since her last appointment she was hospitalized for Depression for about 7 days, she is doing better now this was in late June caffiene: 2 cups tea/day nicotine:none chocolate: occasional BCP: never used hormoens: never used Family History: mother: Mouth and throat cancer from smoking Hormonal History: menarche: 14 M3, breast fed: no, age at : 18 menopause: hysterectomy at 41, left ovaries, done for painful periods Surgical History: Hysterectomy gallbladder appy Medical History: depression (hospitalized in 2024) macular degeneration Social History: nicotine: none alcohol: 2 times a year drugs: Several times a week marijuana Review of Systems - Constitutional Reports fever - EENT EENT Comment(s): macular degeneration and cataracts, near sighted Ears: deny: decreased hearing, tinnitus Ears, nose, mouth and throat: Denies dysphagia - Breasts bilateral: as per HPI - Cardiovascular Denies chest pain, Denies shortness of breath - Respiratory Denies cough - Gastrointestinal Gastrointestinal Comment(s): IBS Reports as per HPI - Genitourinary Genitourinary: Denies dysuria, Denies hematuria Menstruation: Reports post hysterectomy - Musculoskeletal Reports as per HPI - Integumentary Reports unusual bruising - Neurological Reports headaches - Psychiatric Reports anxiety, Reports depression - Endocrine Reports as per HPI - Hematologic/Lymphatic Reports as per HPI - Allergic/Immunologic Reports as per HPI Past Medical History Past Medical History: Cancer, GERD/Reflux, Osteoarthritis (OA), Thyroid Disorder Additional Past Medical History / Comment(s): Neuropathy lobo legs and feet, "Arachnoid" 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, hx "medically induced seizures", migraines, gout, cervical cancer, hypotension, hiatal hernia, IBS, History of Any Multi-Drug Resistant Organisms: None Reported Past Surgical History: Cholecystectomy, Hysterectomy Additional Past Surgical History / Comment(s): left breast biopsy, Past Anesthesia/Blood Transfusion Reactions: No Reported Reaction Past Psychological History: Anxiety, Bipolar, Depression Smoking Status: Never smoker Past Alcohol Use History: None Reported Past Drug Use History: Marijuana - Past Family History Mother Family Medical History: Cancer Medications and Allergies Home Medications Medication Instructions Recorded Confirmed Type Gabapentin 600 mg PO BID 14 Days #56 tab 04/07/24 05/23/24 Rx ARIPiprazole [Abilify] 5 mg PO DAILY #30 tab 05/27/24 Rx Acetaminophen Tab [Tylenol] 650 mg PO Q6HR PRN tab 05/27/24 Rx Amoxic-Pot Clav 875-125Mg 1 tab PO Q12HR 10 Days #20 tab 05/27/24 Rx [Augmentin 875-125] Doxycycline Hyclate [Vibratabs] 100 mg PO BID #20 tab 05/27/24 Rx Naproxen 250 mg PO Q8H PRN #30 tablet 05/27/24 Rx Venlafaxine HCl ER [Effexor XR] 75 mg PO DAILY #30 cap 05/27/24 Rx hydrOXYzine HCL [Atarax] 50 mg PO TID PRN #30 tab 05/27/24 Rx HYDROcodone/APAP 5-325MG [[place] 1 tab PO Q6HR PRN 3 Days #12 tab 06/03/24 Rx 5-325] Allergies Allergy/AdvReac Type Severity Reaction Status Date / Time No Known Allergies Allergy Verified 06/03/24 17:39 Objective - Vital Signs Vital signs: Vital Signs Temp 97.4 F L 08/08/24 08:39 Pulse 65 08/08/24 08:39 Resp 17 08/08/24 08:39 BP 97/64 08/08/24 08:39 Pulse Ox 98 08/08/24 08:39 FiO2 Intake & Output 08/07/24 08/08/24 08/08/24 18:59 06:59 18:59 Weight 86.183 kg - Constitutional General appearance: Present: cooperative - EENT Eyes: Present: EOMI ENT: Present: hearing grossly normal - Neck Neck: Present: normal ROM - Respiratory Respiratory: bilateral: CTA - Cardiovascular Rhythm: regular Heart sounds: normal: S1, S2 - Gastrointestinal General gastrointestinal: Present: soft - Integumentary Integumentary: Present: normal turgor - Musculoskeletal Musculoskeletal: Present: gait normal - Psychiatric Psychiatric: Present: A&O x's 3, appropriate affect, intact judgment & insight - Additional findings Additional findings: Breast Exam: BRA: 36DDD Inspection: Bilateral grade 3 ptosis Palpation: Right breast: Multi positional exam no dominant masses or nodules of concern Right axilla: No adenopathy of concern Left breast: on today's examination there are no dominant masses or nodules of concern in the left breast prior examination revealed an 8 x 4 cm mass in the mid inner aspect of the breast which resolved with antibiotic treatment Left axilla: No adenopathy of concern Assessment and Plan Assessment: Impression: Mass left breast; discordant biopsy results from ultrasound core biopsy performed on 05 27 24 Would like to obtain additional imaging studies prior to further intervention; mammogram on 06-19-24 BIRAD 2 Bipolar Left breast MRI performed 08-05-2024 results pending/this was reviewed and discussed personally with Dr. Teresa Alberts from radiology suspect that the area of concern in the left breast is related to biopsy of abscess and resolving abscess, questionable 2 sites in the right breast most likely cystic Plan: Ultrasound of the left breast medical decision making to cancel surgery at this time and follow-up after ultrasound of the left breast and official report on the MRI CC: Dr. Root
== END ==
LOC: WWCWWP 08:21
PROVIDERS: ATTEND Surgery
DX: N63.20 Unspecified lump in the left breast, unspecified quadrant (principal); F12.90 Cannabis use, unspecified, uncomplicated

== ENCOUNTER → 2024-08-19 | Outpatient (CLI) | payer MEDICARE ==
--- NOTE | 2024-08-19 15:21 | USB ---
Reason for Exam: Follow-up at short interval from prior study. Patient History: Menarche at age 14. First Full-Term at age 18. Hysterectomy at age 42. Other cancer, age 34. Hormonal Contraceptives for 2 years from age 31 until age 33. 05/27/2024, Benign US biopsy breast VAD LT on the left side. Maternal unspecified had other cancer at or over age 50. Risk Values: Jaye 5 year model risk: 1.2%. NCI Lifetime model risk: 7.8%. Technique: Method: Targeted. Elastography: Strain. Patient Position: Supine. Prior Study Comparison: 09/17/2012 Bilateral Diagnostic Mammogram, [facility]. 06/30/2014 Bilateral Screening Mammogram, [facility]. 06/19/2024 Bilateral MG 3D diag mammo w/cad RAUL, [facility]. Findings: The area of palpable concern of the left breast, the axilla of the left breast and the retroareolar of the left breast were scanned. Targeted ultrasound shows resolution of the large complex area seen on prior study. Incidental small simple thin-walled cyst in the nipple is present. Overall Assessment: Benign, BI-RAD 2 Management: Screening Mammogram of both breasts in 10 months. Back on bilateral annual mammogram schedule . A clinical breast exam by your physician is recommended on an annual basis and results should be correlated with mammographic findings. This exam should not preclude additional follow-up of suspicious palpable abnormalities. Results were given to the patient verbally at the time of exam. [facility], , 08/19/2024 3:14 PM. Electronically signed and approved by: Steve Norris M.D.
== END | disposition home or self-care (01) ==
LOC: RADUSWWP 14:58
PROVIDERS: ATTEND Surgery
DX: N63.20 Unspecified lump in the left breast, unspecified quadrant (principal); Z92.0 Personal history of contraception

== ENCOUNTER → 2024-10-16 | Outpatient (CLI) | payer MEDICARE ==
--- NOTE | 2024-10-16 10:11 | US ---
EXAMINATION TYPE: US abdomen complete DATE OF EXAM: 10/16/2024 COMPARISON: CT 08/16/2018 CLINICAL INDICATION: Female, 54 years old with history of R10.84 GEN ABD PAIN; Intermittent whole abd ominal pain x years; Hx Appendectomy and cholecystectomy; Patient denies any other signs, symptoms, o r relevant history TECHNIQUE: Grayscale and color Doppler imaging of the abdomen was performed. FINDINGS: EXAM MEASUREMENTS: Liver Length: 17.7 cm Gallbladder Wall: Surgically absent cm CBD: 0.4 cm, color Doppler imaging was utilized to isolate the common bile duct for measurement. Spleen: 11.2 cm Right Kidney: 11.0 x 4.4 x 4.1 cm Left Kidney: 12.1 x 5.8 x 4.0 cm [employer] NOTES: Pancreas: wnl Liver: wnl, no dilated ducts, masses or cysts. Gallbladder: Surgically absent Evidence for sonographic Ponce's sign: NA CBD: wnl Spleen: Echogenic area with vascularity seen = 2.2 x 1.9 x 2.2 cm Right Kidney: wnl, No hydronephrosis, calculi or masses seen Left Kidney: wnl, No hydronephrosis, calculi or masses seen Upper IVC: wnl Abd Aorta: wnl The liver is homogenous. The intrahepatic portion of the IVC and proximal abdominal aorta are within normal limits. Common bile duct is unremarkable. The visualized portions of the pancreas are homog enous. The spleen demonstrates hyperechoic lesion measuring up to 2.2 cm. With internal vascularity. . Kidneys are symmetric and free of hydronephrosis. No renal lesions are seen. IMPRESSION: 1. No evidence for acute process. 2. Small 2.2 cm splenic lesion possibly representing hemangioma. Consider multiphase MRI for further evaluation. [facility], , 10/16/2024 10:08 AM
== END | disposition home or self-care (01) ==
LOC: RADUSWWP 08:30
PROVIDERS: ATTEND Student in an Organized Health Care Education/Training Program
DX: D73.89 Other diseases of spleen (principal); Z90.49 Acquired absence of other specified parts of digestive tract
CPT/HCPCS: 76700